=== PATIENT | male | born 1970 | race Caucasian/White ===

== ENCOUNTER 2021-06-27 06:58 | Emergency (ER) | payer OTHER, SELFPAY ==
[2021-06-27 07:14] VITALS: BP 135/83; PULSE 77; RESP 16; TEMP 36.5; O2SAT 97
--- NOTE | 2021-06-27 10:21 | ED.WOUNDLAC ---
HPI - Wound/Laceration General Chief Complaint: Skin/Abscess/Foreign Body Stated Complaint: Laceration R ear Time Seen by Provider: 06/27/21 07:33 Source: patient Mode of arrival: ambulatory Limitations: no limitations History of Present Illness HPI narrative: 50-year-old male Patient basically was getting into bed this morning and stumbled and whacked his right ear on a bookcase No loss of consciousness, no neck pain, no other injuries, just a laceration to the ear Related Data Allergies Allergy/AdvReac Type Severity Reaction Status Date / Time No Known Allergies Allergy Verified 06/27/21 07:18 Review of Systems Constitutional: Constitutional: Denies fatigue and Denies weakness ENT: Reports as per HPI Respiratory: Respiratory: Denies dyspnea Musculoskeletal: Musculoskeletal: Denies myalgias and Denies arthralgias Neurologic: Denies vertigo, Denies dizziness and Denies syncope Exam Const: General: no acute distress and alert Orientation/consciousness: patient oriented x3 HENMT: Other: 1-2 cm laceration to the pinna of the right ear perpendicular to the edge of the ear and through and through the cartilage and the back of the ear Eyes: Pupils: Equal, round and reactive pupils present Resp: Effort & Inspection: normal respiratory effort and not labored Neuro: General: patient oriented x3 Speech: normal speech Course Vital Signs Vital signs: Vital Signs Temperature 36.5 C 06/27/21 07:14 Pulse Rate 77 06/27/21 07:14 Respiratory Rate 16 06/27/21 07:14 Blood Pressure 135/83 06/27/21 07:14 Pulse Oximetry 97 06/27/21 07:14 Temperature 36.5 C 06/27/21 07:14 Pulse Rate 77 06/27/21 07:14 Respiratory Rate 16 06/27/21 07:14 Blood Pressure 135/83 06/27/21 07:14 Pulse Oximetry 97 06/27/21 07:14 Procedures Laceration Laceration 1: Date: 06/27/21 Time: 09:30 Site: other (r ear) Side (If applicable): right Size (cm): 2 Description: linear Depth: [id number] Local Anesthetic: lidocaine 1% Amount of anesthesia used (mL): 2 Pre-repair: irrigated ====== Skin Level ====== Skin layer closed with: vicryl Size (cm): 5-0 Number of sutures: 6 Technique: simple, interrupted ====== Subcutaneous Layer ====== ====== Muscle Layer ====== Muscle layer closed with: vicryl Size: 5-0 Number of sutures: 2 Technique: simple, interrupted and other ((cartilage)) ====== Tendon Layer ====== Discharge Plan Discharge Clinical Impression: Laceration of ear, external, right, complicated Patient Disposition: Home, Self-Care Condition: Improved Instructions: Care For Your Stitches (ED) Additional Instructions: Leave your dressing in place for the rest of the day Stitches do not need to be removed You can put a small amount of topical antibiotic ointment on the area twice a day Follow-up/Referrals: Theron Montgomery, [Physician] - (Primary care, as needed) PHYSICIAN,PRODUCT MANAGER [employer] [Primary Care Provider] -
[2021-06-27] MEDS: TETANUS,DIPHTHERIA,AC PERTUSSIS ADULT (0.5 ML) BOOSTRIX IM (10:54)
== END 2021-06-27 10:58 | disposition home or self-care (01) ==
PROVIDERS: Emergency Provider Emergency Medicine
DX: S01.311A Laceration without foreign body of right ear, initial encounter (principal); Z23 Encounter for immunization; W22.03XA Walked into furniture, initial encounter
CPT/HCPCS: 12051; 90471; 90715; 99282

== ENCOUNTER 2024-05-13 01:35 | Inpatient (IN) | payer OTHER, SELFPAY ==
[2024-05-13] VITALS (7 sets, daily range): BP systolic 109–156; BP diastolic 73–85; PULSE 71–90; RESP 16–20; TEMP 36.4–36.6; O2SAT 96–99; BMI 25.1
--- NOTE | ~2024-05-13 | XR_ITS ---
EXAMINATION: XR hip LT min 2V DATE: 05/14/2024 17:02 INDICATION: Left hip arthroplasty. Postop. TECHNIQUE: 2 views of left hip were obtained. COMPARISON: Pelvis and left hip radiographs 05/13/2024 FINDINGS: There is a bipolar left hip hemiarthroplasty in near-anatomic alignment. There is 3 mm luce ncy adjacent to the femoral component posteriorly and proximally. There are cables around proximal fe mur. There are prominent nutrient foramina in the left femoral diaphysis. There are foci of soft tiss ue gas, consistent with recent surgery. IMPRESSION: 1. Bipolar left hip hemiarthroplasty in near-anatomic alignment. Reviewed, dictated and finalized at location A. H CUTTER CONTACT WHEEL
--- NOTE | ~2024-05-13 | XR_ITS ---
AP view of the pelvis and AP and lateral views of the left hip Clinical history: Pain Findings: There is acute fracture the basicervical region of the left femoral neck, essentially nondi splaced. No other fracture or dislocation seen.. Bilateral hip and SI joint spaces are preserved. Sof t tissues are unremarkable. Impression: Acute fracture the basicervical region of the left femoral neck, essentially nondisplaced. Reviewed, dictated and finalized at location M. MILLING WHEEL OPERATOR Impression: Acute fracture the basicervical region of the left femoral neck, essentially no ndisplaced.
--- NOTE | ~2024-05-13 | CT_ITS ---
EXAMINATION: CT hip LT wo con DATE: 05/13/2024 19:11 INDICATION: Left femoral neck fracture. TECHNIQUE: Computed tomography (CT) of the left hip was performed without intravenous contrast. Autom ated exposure control and iterative reconstruction technique were employed. The dose-length product w as 635.40 mGy-cm. COMPARISON: Pelvis and left hip radiographs 05/13/24 FINDINGS: There is a comminuted fracture of left femoral neck. The main distal fracture fragment demo nstrates 10 mm shortening. There is moderate left hip osteoarthritis. IMPRESSION: 1. Comminuted fracture of left femoral neck. 2. Moderate left hip osteoarthritis. Reviewed, dictated and finalized at location A. SURVEYOR
--- NOTE | ~2024-05-13 | XR_ITS ---
EXAMINATION: XR surgery orthopedic DATE: 05/14/2024 16:19 INDICATION: Intraoperative evaluation during left hip hemiarthroplasty TECHNIQUE: 2 frontal views of the left hip was obtained. COMPARISON: None. FINDINGS: Initial image demonstrates resection of the fractured left femoral head and neck and placement of a f emoral broach is in expected position with proximal tip centered over the left acetabulum. A couple c erclage wires are placed about the intratrochanteric and subtrochanteric femur. Subsequent image demo nstrates replacement of the broach with a bipolar type left hip hemiarthroplasty which is in anatomic alignment. No other fractures identified. Portions of the pelvis are excluded from the f [id number] or obscured by a bolster. No other fractures in the visualized bones. IMPRESSION: 1. Expected appearance during bipolar type left hip hemiarthroplasty placement. Reviewed, dictated and finalized at location A. ORK DEVELOPER
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
--- NOTE | 2024-05-13 02:36 | PC.NURSE ---
RN attempted to go stat IV for blood work and medication orders. Pt states I don't want anything put into my veins . RN and MD Larkin went into pt room to explain he has left fracture hip and may need surgery so he will need an IV either way. PT states I want a second opinion . verbally states waiting for official stat rad report before starting IV.
[2024-05-13 04:15] LABS: Basophils Absolute Auto 0.1 K/mm3 (0.0-0.1); Basophils Percent Auto 0.4 % (0.2-1.2); Eosinophils Percent Auto 0.3 % (0-4.4); Hematocrit 38.1 % (42.0-52.0); Immature Granulocyte Absolute 0.07 K/mm3 (0.00-0.031); Immature Granulocyte Percent A 0.6 % (0-0.5); Lymphocytes Absolute Auto 1.13 K/mm3 (0.9-3.2); Lymphocytes Percent Auto 10.1 % (18.3-44.2); Mean Corpuscular HGB Conc 31.5 g/dl (32-36); Mean Corpuscular Hemoglobin 27.1 pg (26-34); Mean Platelet Volume 9.4 fl (7.4-10.4); Monocytes Absolute Auto 0.3 K/mm3 (0.1-0.6); Monocytes Percent Auto 2.5 % (2.6-8.5); Neutrophils Absolute Auto 9.7 K/mm3 (1.3-6.7); Neutrophils Percent Auto 86.1 % (45.5-73.1); Platelet Count Result 296 k/mm3 (150-375); Red Blood Count 4.43 M/mm3 (4.6-6.20); White Blood Count 11.2 K/mm3 (4.5-10.0)
[2024-05-13 04:25] LABS: Alanine Aminotransferase 23 U/L (6-50); Albumin Level 4.4 g/dL (3.5-5.1); Alkaline Phosphatase 67 U/L (38-126); Anion Gap 8 mmol/L (4-12); Aspartate Amino Transferase 32 U/L (17-59); Bilirubin,Total 0.3 mg/dL (0.2-1.3); Blood Urea Nitrogen 10 mg/dL (9-20); Calcium 8.7 mg/dL (8.4-10.2); Carbon Dioxide 27 mmol/L (22-30); Chloride 106 mmol/L (98-107); Estimated CRCL calculation 85 ml/min; Estimated Glomerular Filt Rate > 60; Glucose 111 mg/dL (65-110); Potassium 4.4 mmol/L (3.4-5.0); Sodium 141 mmol/L (137-145)
[2024-05-13 04:26] LABS: Ethanol 224 mg/dL (<10)
[2024-05-13 04:29] LABS: Prothrombin Time 13.4 Seconds (11.1-14.7)
[2024-05-13 04:30] LABS: Partial Thromboplastin Time 28.1 Seconds (22.3-36.8)
--- NOTE | 2024-05-13 04:44 | ADMGEN ---
This patient, Rao Quevedo, was admitted to Medical Room 254-01. Patient/family oriented to hospital policies and general routines including ID bracelet, bed and alarms, visiting hours, pain management, procedures, bathroom and other care routines, personal items, smoking policy, room service/diet, and visiting hours. Information on how to activate the Rapid Response Team has been discussed. Patient/Family are encouraged to report perceived risks to care and to ask questions if they do not understand what they are told or what they should do.
[2024-05-13] MEDS: LACTATED RINGERS 1,000 ML 125 ML IV CONT (05:10)
[2024-05-13] MEDS: HYDROcodone/acetaminophen (*CRX) 5-325 MG TABLET 1 TAB PO ×2 (05:11→17:33)
--- NOTE | 2024-05-13 07:00 | PM.CNOR ---
Assessment and Plan Assessment and plan (1) Fracture of femoral neck, left: Code(s): S72.002A - Fracture of unspecified part of neck of left femur, initial encounter for closed fracture Status: Acute Assessment and Plan: Patient has a femoral neck fracture Left. Will try to pin in place. If fracture moves will need bipolar. Discussed. History of Present Illness HPI Consult date: 05/13/24 Chief complaint: Femoral neck fracture Review of Systems Review of Systems: As reviewed above in HPI [facility] Family History Family History (Updated 05/13/24 @ 04:28 by Yumiko Montague RN) Other Cancer Heart disease Lung cancer Social History Social History Smoking status: Never smoker Alcohol intake: current Drinks per week: 24 Substance use type: marijuana Do You Feel Safe in your Home?: Yes Lack of Transportation: No Lack of Food: Never True Current Housing: I Have Housing Concerned About Future Housing: No Difficulty Paying Gas/Electric Bills: No Difficulty Paying for Meds: No Currently Unemployed: YES Education: High School Diploma/GED Difficulty w/ Childcare or Family Care: No Spiritual care concerns: No Meds Home Medications and Allergies Home Medications ?Medication ?Instructions ?Recorded ?Confirmed ?Type No Home Medications 05/13/24 05/13/24 History Allergies Allergy/AdvReac Type Severity Reaction Status Date / Time coconut Allergy Severe Dyspnea / Verified 05/13/24 04:16 SOB Vital Signs Vital Signs - 24 hr 05/13/24 01:35 05/13/24 04:14 05/13/24 04:50 Temperature 97.8 F 98 F Pulse Rate 72 79 90 Respiratory Rate 20 18 18 Blood Pressure 140/82 134/74 109/85 Pulse Oximetry 96 99 99 Oxygen Delivery Room Air Exam Narrative: Pain with motion Left hip. Neurologically intact. Eyes: General: appearance normal, both eyes and all related structures Neck: Neck: supple Resp: Effort & Inspection: normal respiratory effort Cardio: Rate: regular rate Rhythm: regular rhythm Results Labs 05/13/24 04:08 05/13/24 04:08 Labs: Abnormal lab results 05/13/24 Range/Units 04:08 WBC 11.2 H (4.5-10.0) K/mm3 RBC 4.43 L (4.6-6.20) M/mm3 Hgb 12.0 L (14.0-18.0) g/dL Hct 38.1 L (42.0-52.0) % MCHC 31.5 L (32-36) g/dl Immature Gran % (Auto) 0.6 H (0-0.5) % Neut % (Auto) 86.1 H (45.5-73.1) % Lymph % (Auto) 10.1 L (18.3-44.2) % Mcclain % (Auto) 2.5 L (2.6-8.5) % Abs Immat Gran (auto) 0.07 H (0.00-0.031) K/mm3 Absolute Neuts (auto) 9.7 H (1.3-6.7) K/mm3 Glucose 111 H (65-110) mg/dL H & H 05/13/24 Range/Units 04:08 Hgb 12.0 L (14.0-18.0) g/dL Hct 38.1 L (42.0-52.0) % Coagulation 05/13/24 Range/Units 04:08 INR 1.0 All other labs normal.
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
[2024-05-13] MEDS: ACETAMINOPHEN 325 MG TABLET 650 MG PO ×3 (08:45→17:33)
[2024-05-13] MEDS: THIAMINE HCL INJ 100 MG, FOLIC ACID INJ 1 MG, MAGNESIUM SULFATE INJ 1 GM, MULTIVITAMINS... 125 MG IV CONT (08:46)
[2024-05-13 12:26] LABS: Glucose Point of Care 91 mg/dl (65-105)
[2024-05-13] MEDS: ENOXAPARIN 40 MG/0.4 ML SYRINGE SUB-Q (21:42)
[2024-05-13] MEDS: SENNA/DOCUSATE SODIUM TABLET 1 TAB PO (21:42)
[2024-05-14] VITALS (14 sets, daily range): BP systolic 124–176; BP diastolic 74–91; PULSE 69–84; RESP 14–20; TEMP 36.3–36.8; O2SAT 97–100
[2024-05-14 00:31] LABS: Glucose Point of Care 82 mg/dl (65-105)
[2024-05-14] MEDS: ACETAMINOPHEN 325 MG TABLET 650 MG PO ×4 (00:46→23:47)
[2024-05-14 05:24] LABS: Basophils Absolute Auto 0.1 K/mm3 (0.0-0.1); Basophils Percent Auto 0.9 % (0.2-1.2); Eosinophils Absolute Auto 0.2 K/mm3 (0-0.3); Hematocrit 35.6 % (42.0-52.0); Hemoglobin 11.2 g/dL (14.0-18.0); Immature Granulocyte Absolute 0.02 K/mm3 (0.00-0.031); Immature Granulocyte Percent A 0.3 % (0-0.5); Lymphocytes Absolute Auto 1.19 K/mm3 (0.9-3.2); Mean Corpuscular HGB Conc 31.5 g/dl (32-36); Mean Corpuscular Hemoglobin 27.3 pg (26-34); Mean Corpuscular Volume 86.8 fl (80-100); Mean Platelet Volume 9.7 fl (7.4-10.4); Monocytes Absolute Auto 0.6 K/mm3 (0.1-0.6); Monocytes Percent Auto 7.9 % (2.6-8.5); Neutrophils Absolute Auto 5.4 K/mm3 (1.3-6.7); Neutrophils Percent Auto 72.9 % (45.5-73.1); Platelet Count Result 247 k/mm3 (150-375); Red Cell Distribution Width 14.2 % (11.5-14.5); White Blood Count 7.5 K/mm3 (4.5-10.0)
[2024-05-14 05:35] LABS: Anion Gap 4 mmol/L (4-12); Blood Urea Nitrogen 9 mg/dL (9-20); Calcium 8.5 mg/dL (8.4-10.2); Carbon Dioxide 28 mmol/L (22-30); Chloride 103 mmol/L (98-107); Estimated CRCL calculation 85 ml/min; Estimated Glomerular Filt Rate > 60; Glucose 89 mg/dL (65-110); Magnesium 2.1 mg/dL (1.6-2.3); Potassium 3.8 mmol/L (3.4-5.0); Sodium 135 mmol/L (137-145)
[2024-05-14 06:59] LABS: Glucose Point of Care 92 mg/dl (65-105)
--- NOTE | 2024-05-14 10:16 | PM.IMPN ---
Progress Note: A&P Assessment and Plan (1) Closed subcapital fracture of femur: Code(s): S72.019A - Unspecified intracapsular fracture of unspecified femur, initial encounter for closed fracture Status: Acute Assessment and Plan: Ortho consulted plan for surgery today or tomorrow, patient will need to be NPO Nonweightbearing left lower extremity Pain management and bowel protocol 05/14: Patient to OR for Bipolar left hip replacement. (2) Alcohol intoxication: Code(s): F10.929 - Alcohol use, unspecified with intoxication, unspecified Status: Acute Assessment and Plan: Ethanol level on arrival 224 Banana bag CIWA protocol with Ativan Case management consulted 05/14: CIWA discontinued, no signs of withdrawal Time Spent With Patient Time with patient: 25 - 35 minutes Subjective Date/time seen: 05/14/24 10:16 Interval history: Patient does not want IV narcotics, made changes to oral pain medication. Patient going for bipolar left hip replacement this afternoon. NPO except meds since MN last night. CIWA 0, Q4H monitoring discontinued. Review of Systems Review of Systems: All systems reviewed & are unremarkable except as noted in HPI and below Exam Narrative: GENERAL: Well-appearing, well-nourished, and in no acute distress. HEAD: Normocephalic, atraumatic. ENT:? Mucous membranes moist. CHEST: Clear to auscultation.? No respiratory distress. HEART: Regular rate and rhythm. ? Normal peripheral pulses. ABDOMEN: Soft, nontender, nondistended. EXTREMITIES: Left lateral hip tenderness to palpation, limited range of motion due to pain. No peripheral edema. SKIN: Warm dry normal color NEURO: Alert and oriented x3. PSYCH: Normal mood and affect Objective Data Vital Signs Vital Signs: Vital Signs - 24 hr 05/13/24 14:57 05/13/24 21:10 05/14/24 00:25 Temperature 36.6 C 36.4 C 36.8 C Pulse Rate 71 79 69 Respiratory Rate 17 16 14 Blood Pressure 156/73 H 144/77 H 142/84 H Pulse Oximetry 98 98 100 05/14/24 06:20 Temperature 36.6 C Pulse Rate 72 Respiratory Rate 16 Blood Pressure 142/74 H Pulse Oximetry 99 Intake/Output Intake/Output: Intake & Output 05/11/24 05/12/24 05/13/24 05/14/24 23:59 23:59 23:59 23:59 Intake Total 360 400 Output Total 1400 700 Balance -1040 -300 Meds/Results Medications: Active Medications Generic Name Dose Route Start Last Admin Trade Name Freq PRN Reason Stop Dose Admin Acetaminophen 650 mg 05/13/24 04:06 Acetaminophen 325 Mg Tablet PO Q4H PRN Mild Pain (1-3) or Fever Acetaminophen 650 mg 05/13/24 07:40 05/14/24 05:56 Acetaminophen 325 Mg Tablet PO 650 mg Q6HR TAYLOR Administration Hydrocodone Bitart/Acetaminophen 1 tab 05/13/24 04:06 05/13/24 17:33 Hydrocodone/Acetaminophen (*Crx) 5-325 Mg Tablet PO 1 tab Q4H PRN Administration Pain Rated 4-6 Hydrocodone Bitart/Acetaminophen 2 tab 05/14/24 10:11 Hydrocodone/Acetaminophen (*Crx) 5-325 Mg Tablet PO Q4H PRN Pain Rated 7-10 Enoxaparin Sodium 40 mg 05/13/24 21:00 05/13/24 21:42 Enoxaparin 40 Mg/0.4 Ml Syringe SUB-Q 40 mg Q24H TAYLOR Administration Sodium Chloride 1,000 mls @ 100 mls/hr 05/14/24 10:10 Normal Saline Iv IV CONT .Q10H TAYLOR Ondansetron HCl 4 mg 05/13/24 07:36 Ondansetron Inj 4 Mg/2 Ml Vial IV PUSH Q6H PRN Nausea And Vomiting Senna/Docusate Sodium 1 tab 05/13/24 21:00 05/13/24 21:42 Senna/Docusate Sodium Tablet PO 1 tab HS TAYLOR Administration Radiology Results: ITS Impressions Hip/Pelvis X-Ray 05/13/24 06:21 Impression: Acute fracture the basicervical region of the left femoral neck, essentially nondisplaced. Hip CT 05/13/24 19:13 IMPRESSION: 1. Comminuted fracture of left femoral neck. 2. Moderate left hip osteoarthritis. Labs Labs: Laboratory Results - last 24 hr 05/13/24 05/14/24 05/14/24 12:22 00:28 04:56 WBC 7.5 RBC 4.10 L Hgb 11.2 L Hct 35.6 L MCV 86.8 MCH 27.3 MCHC 31.5 L RDW 14.2 Plt Count 247 MPV 9.7 Immature Gran % (Auto) 0.3 Neut % (Auto) 72.9 Lymph % (Auto) 16.0 L [place] % (Auto) 7.9 Eos % (Auto) 2.0 Baso % (Auto) 0.9 Lymph # (Auto) 1.19 [place] # (Auto) 0.6 Eos # (Auto) 0.2 Baso # (Auto) 0.1 Abs Immat Gran (auto) 0.02 Absolute Neuts (auto) 5.4 Absolute Nucleated RBC 0.000 Nucleated RBC % 0.0 Sodium 135 L Potassium 3.8 Chloride 103 Carbon Dioxide 28 Anion Gap 4 BUN 9 Creatinine 0.90 Estim Creat Clear Calc 85 Estimated GFR > 60 Glucose 89 POC Capillary Glucose 91 82 Calcium 8.5 Magnesium 2.1 05/14/24 06:22 WBC RBC Hgb Hct MCV MCH MCHC RDW Plt Count MPV Immature Gran % (Auto) Neut % (Auto) Lymph % (Auto) [place] % (Auto) Eos % (Auto) Baso % (Auto) Lymph # (Auto) [place] # (Auto) Eos # (Auto) Baso # (Auto) Abs Immat Gran (auto) Absolute Neuts (auto) Absolute Nucleated RBC Nucleated RBC % Sodium Potassium Chloride Carbon Dioxide Anion Gap BUN Creatinine Estim Creat Clear Calc Estimated GFR Glucose POC Capillary Glucose 92 Calcium Magnesium Pulse Oximetry SpO2 results: 98-100% on room air Attestation: I personally reviewed and interpreted this pulse oximetry as follows: Interpretation: no need for supplemental oxygenation at this time Quality VTE Prophylaxis VTE prophylaxis: pharmacologic ordered Hospitalist MIPS Advance Care Plan I have confirmed that the patient's Advanced Care Plan is present, code status is documented, or surrogate decision maker is listed in patient medical record.: Yes Medication Reconciliation I have utilized all available resources to obtain, update and review the patients current medications (includes all prescriptions, OTC, herbals, cannabis, and nutritional supplements).: Yes
[2024-05-14] MEDS: HYDROcodone/acetaminophen (*CRX) 5-325 MG TABLET 2 TAB PO (10:52)
[2024-05-14] MEDS: SODIUM CHLORIDE 0.9% IV 1,000 ML 100 ML IV CONT (10:53)
[2024-05-14] MEDS: LACTATED RINGERS 1,000 ML 30 ML IV CONT ×2 (13:15→16:49)
--- NOTE | 2024-05-14 14:15 | WPDHPUPDATE1 ---
History and Physical Update Update Date/Time: 05/14/24 14:15 History and Physical has been reviewed, including an updated exam of the patient. There are NO changes in the patient's condition. Risks, benefits, and alternatives have been discussed and questions answered. Patient agrees to proceed with procedure. Patient has a vertical femoral neck fracture with comminution and 1cm of shortening already. I think an endoprosthesis will give him a better, more reliable result. Discussed at length.
[2024-05-14] MEDS: TRANEXAMIC ACID 1,000MG/ISO100 1,000 MG/100 ML BAG 200 MG IVPB (14:24)
[2024-05-14] MEDS: VANCOMYCIN 1,250 MG/NS 250 ML 1,250 MG/250 ML BAG 166.67 MG IVPB (14:37)
--- NOTE | 2024-05-14 14:37 | WPDANESEPPF ---
Anes - Initial Pre Proc Eval Procedure: Operation Date: 05/14/24 14:30 Proposed Procedures p Left Bipolar Hip Replacement - Yaya Reyes MD Date/Time: 05/14/24 14:37 Surgeon: Kayla Ramirez MD Pre Op Diagnosis: Femoral neck fracture Patient Data Age: 53 Gender: M Height: 1.75 m Weight: 77.1 kg Last Vital Signs Temp 36.8 C 05/14/24 13:26 Pulse 72 05/14/24 13:26 Resp 16 05/14/24 13:26 BP 131/86 05/14/24 13:26 Pulse Ox 99 05/14/24 13:26 O2 Del Method Room Air 05/14/24 13:26 FiO2 21 05/13/24 08:31 Allergies Allergy/AdvReac Type Severity Reaction Status Date / Time coconut Allergy Severe Dyspnea / Verified 05/14/24 13:26 SOB Home Medications ?Medication ?Instructions ?Recorded ?Confirmed ?Type No Home Medications 05/13/24 05/13/24 History Laboratory Tests 05/14/24 05/14/24 05/14/24 00:28 04:56 06:22 WBC 7.5 K/mm3 (4.5-10.0) RBC 4.10 L M/mm3 (4.6-6.20) Hgb 11.2 L g/dL (14.0-18.0) Hct 35.6 L % (42.0-52.0) MCV 86.8 fl (80-100) MCH 27.3 pg (26-34) MCHC 31.5 L g/dl (32-36) RDW 14.2 % (11.5-14.5) Plt Count 247 k/mm3 (150-375) MPV 9.7 fl (7.4-10.4) Immature Gran % (Auto) 0.3 % (0-0.5) Neut % (Auto) 72.9 % (45.5-73.1) Lymph % (Auto) 16.0 L % (18.3-44.2) [place] % (Auto) 7.9 % (2.6-8.5) Eos % (Auto) 2.0 % (0-4.4) Baso % (Auto) 0.9 % (0.2-1.2) Lymph # (Auto) 1.19 K/mm3 (0.9-3.2) [place] # (Auto) 0.6 K/mm3 (0.1-0.6) Eos # (Auto) 0.2 K/mm3 (0-0.3) Baso # (Auto) 0.1 K/mm3 (0.0-0.1) Abs Immat Gran (auto) 0.02 K/mm3 (0.00-0.031) Absolute Neuts (auto) 5.4 K/mm3 (1.3-6.7) Absolute Nucleated RBC 0.000 K/mm3 (0.0-0.012) Nucleated RBC % 0.0 % (0.0-0.2) Sodium 135 L mmol/L (137-145) Potassium 3.8 mmol/L (3.4-5.0) Chloride 103 mmol/L (98-107) Carbon Dioxide 28 mmol/L (22-30) Anion Gap 4 mmol/L (4-12) BUN 9 mg/dL (9-20) Creatinine 0.90 mg/dL (0.7-1.3) Estim Creat Clear Calc 85 ml/min Estimated GFR > 60 (59 - ) Glucose 89 mg/dL (65-110) POC Capillary Glucose 82 mg/dl 92 mg/dl (65-105) (65-105) Calcium 8.5 mg/dL (8.4-10.2) Magnesium 2.1 mg/dL (1.6-2.3) Patient hx anesthesia problems: none Family hx anesthesia problems: none Results Review: All pre-operative results and documents have been reviewed as part of the pre-operative evaluation. [facility] Family History Family History Other Cancer Heart disease Lung cancer Social History Social History Smoking status: Never smoker Alcohol intake: current Drinks per week: 24 Substance use type: marijuana Do You Feel Safe in your Home?: Yes Lack of Transportation: No Lack of Food: Never True Current Housing: I Have Housing Concerned About Future Housing: No Difficulty Paying Gas/Electric Bills: No Difficulty Paying for Meds: No Currently Unemployed: YES Education: High School Diploma/GED Difficulty w/ Childcare or Family Care: No Spiritual care concerns: No Anes - Eval Final PreProcedure Day of Procedure 05/14/24 14:37 Patient weight: normal Heart: regular rate and rhythm Lungs: clear to auscultation Airway: Mallampati scale class II Neurological: alert and oriented Last oral intake: >/= 8 hours ASA classification: III Emergent: no Anesthetic plan: proceed Anesthesia type and monitoring: general ETT and standard monitoring Results Review: All pre-operative results and documents have been reviewed as part of the pre-operative evaluation. Informed Consent: The patient's anesthetic plan and its attendant risks and benefits were discussed with the patient/family/POA. Questions were solicited and answers provided to the satisfaction of the patient/family/POA.
[2024-05-14] MEDS: ceFAZolin 2 GM/D5W 50 ML 2 GM/50 ML BAG IVPB ×2 (14:43→21:57)
--- NOTE | 2024-05-14 16:27 | W.PM.PROC2 ---
Procedure Note - Detailed Date of Procedure 05/14/24 Pre-op Diagnosis Femoral neck fracture LEFT Post-op Diagnosis Same Procedure Performed Bipolar replacement Surgeon Yaya Reyes MD Vice President Of Consulting Services Susan Dunaway Anesthesia General Indications Pain and Fracture Findings patient had a vertical femoral neck fracture with a large long spike that extended below or to the level of the lesser trochanter. Description of Procedure Patient brought to operating room 7. General anesthetic was administered. He was sterilely prepped and draped in usual manner. Longitudinal incision made over the hip. Dissection carried down to the fascia. The fascia split in line. Freedman type approach was used the femoral neck was delivered anteriorly this was cut a fingerbreadth above the lesser trochanter. There is a spike from the fracture the extended below the cut. The hip femoral head was then removed with some difficulty measured 54 millimeters. A 54 millimeter bipolar cup was chosen. At this point I elected to cable the femur above and below the lesser trochanter. I then reamed and broached to a 4 component. This was impacted into place an offset stem was used because of his varus deformity and then a +as standard neck was used. This gave excellent alignment and fixation and stability of the hip. The wound was irrigated, hemostasis obtained, and then closed with #5. Ethibond #2. Vicryl 2-0 Vicryl and gemma. A sterile dressing was applied. The patient tolerated the procedure well. Implants J [employer] Estimated Blood Loss 5 Urine Output 700 Complications No immediate complications Condition Stable AM Billing Surgery - Charge Forward: Surgery Billing ([id number] Bipolar)
[2024-05-14] MEDS: SENNA/DOCUSATE SODIUM TABLET 2 TAB PO (18:45)
[2024-05-14] MEDS: SODIUM CHLORIDE 0.9% IV 1,000 ML 125 ML IV CONT (18:46)
[2024-05-14] MEDS: HYDROmorphone HCL INJ (*CRX) 1 MG/ML SYR IV PUSH (18:46)
[2024-05-14] MEDS: HYDROcodone/acetaminophen (*CRX) 7.5-325 MG TABLET 1 TAB PO ×2 (20:02→23:53)
[2024-05-14] MEDS: IBUPROFEN IV 800 MG/200 ML 800 MG/200 ML BAG 400 MG IVPB (20:03)
[2024-05-14] MEDS: SENNA/DOCUSATE SODIUM TABLET 1 TAB PO (21:58)
[2024-05-14] MEDS: hydrOXYzine pamoate 25 MG CAPSULE 50 MG PO (21:58)
[2024-05-15] VITALS (8 sets, daily range): BP systolic 116–154; BP diastolic 62–85; PULSE 78–99; RESP 14–20; TEMP 36.4–36.8; O2SAT 98–100
[2024-05-15 05:47] LABS: Basophils Absolute Auto 0.1 K/mm3 (0.0-0.1); Basophils Percent Auto 0.7 % (0.2-1.2); Eosinophils Absolute Auto 0.1 K/mm3 (0-0.3); Eosinophils Percent Auto 1.6 % (0-4.4); Hematocrit 28.4 % (42.0-52.0); Immature Granulocyte Absolute 0.01 K/mm3 (0.00-0.031); Immature Granulocyte Percent A 0.1 % (0-0.5); Lymphocytes Absolute Auto 1.31 K/mm3 (0.9-3.2); Lymphocytes Percent Auto 17.8 % (18.3-44.2); Mean Corpuscular HGB Conc 31.7 g/dl (32-36); Mean Corpuscular Hemoglobin 27.8 pg (26-34); Mean Corpuscular Volume 87.7 fl (80-100); Mean Platelet Volume 9.6 fl (7.4-10.4); Monocytes Absolute Auto 0.7 K/mm3 (0.1-0.6); Monocytes Percent Auto 9.9 % (2.6-8.5); Neutrophils Absolute Auto 5.1 K/mm3 (1.3-6.7); Neutrophils Percent Auto 69.9 % (45.5-73.1); Platelet Count Result 241 k/mm3 (150-375); Red Blood Count 3.24 M/mm3 (4.6-6.20); Red Cell Distribution Width 14.3 % (11.5-14.5); White Blood Count 7.4 K/mm3 (4.5-10.0)
[2024-05-15] MEDS: ceFAZolin 2 GM/D5W 50 ML 2 GM/50 ML BAG IVPB ×2 (05:52→13:19)
[2024-05-15 05:58] LABS: Anion Gap 0 mmol/L (4-12); Blood Urea Nitrogen 8 mg/dL (9-20); Calcium 8.1 mg/dL (8.4-10.2); Carbon Dioxide 31 mmol/L (22-30); Chloride 103 mmol/L (98-107); Estimated CRCL calculation 77 ml/min; Estimated Glomerular Filt Rate > 60; Glucose 116 mg/dL (65-110); Potassium 4.6 mmol/L (3.4-5.0); Sodium 134 mmol/L (137-145)
[2024-05-15] MEDS: ACETAMINOPHEN 325 MG TABLET 650 MG PO ×4 (06:21→23:13)
[2024-05-15] MEDS: HYDROcodone/acetaminophen (*CRX) 7.5-325 MG TABLET 1 TAB PO ×2 (08:02→15:32)
[2024-05-15] MEDS: CELECOXIB 200 MG CAPSULE PO (08:03)
[2024-05-15] MEDS: RIVAROXABAN 10 MG TABLET PO (08:04)
[2024-05-15] MEDS: SENNA/DOCUSATE SODIUM TABLET 2 TAB PO ×2 (08:04→16:50)
[2024-05-15] MEDS: polyethylene glycoL 3350 17 GM POWD.PACK PO (08:04)
--- NOTE | 2024-05-15 09:49 | PM.PNORT ---
Progress Note: A&P Assessment and Plan (1) Fracture of femoral neck, left: Code(s): S72.002A - Fracture of unspecified part of neck of left femur, initial encounter for closed fracture Status: Acute Assessment and Plan: S/P bipolar for vertical comminuted hip fracture. Touch weight bearing. F/U 2 weeks. Up walking. Home when ambulatory. Subjective Subjective Date/Time Seen: 05/15/24 09:49 Post Op day: 1 Principal diagnosis: Bipolar Review of Systems Review of Systems: As reviewed above in HPI Exam Narrative: S/P bipolar. Up with walker. Dressing intact Objective Data Vital Signs Vital Signs: Vital Signs - 24 hr 05/14/24 13:26 05/14/24 16:49 05/14/24 17:00 Temperature 98.3 F 97.3 F L Pulse Rate 72 78 76 Respiratory Rate 16 20 16 Blood Pressure 131/86 170/83 H 176/75 H Pulse Oximetry 99 100 100 Oxygen Delivery Room Air Simple Face Mask Simple Face Mask Oxygen Flow Rate 6 10 05/14/24 17:15 05/14/24 17:30 05/14/24 17:45 Temperature Pulse Rate 72 79 77 Respiratory Rate 18 18 18 Blood Pressure 172/91 H 162/88 H 168/89 H Pulse Oximetry 100 98 97 Oxygen Delivery Simple Face Mask Room Air Room Air Oxygen Flow Rate 10 05/14/24 18:00 05/14/24 18:15 05/14/24 18:30 Temperature 97.9 F Pulse Rate 76 76 78 Respiratory Rate 16 16 18 Blood Pressure 156/89 H 161/82 H 150/82 H Pulse Oximetry 97 98 98 Oxygen Delivery Room Air Room Air Oxygen Flow Rate 05/14/24 18:45 05/14/24 19:15 05/14/24 21:03 Temperature 97.6 F 97.7 F 97.9 F Pulse Rate 71 81 84 Respiratory Rate 16 16 18 Blood Pressure 147/77 H 124/83 141/76 H Pulse Oximetry 97 98 99 Oxygen Delivery Oxygen Flow Rate 05/15/24 00:09 05/15/24 06:24 05/15/24 07:49 Temperature 97.8 F 98.2 F Pulse Rate 99 86 Respiratory Rate 16 14 Blood Pressure 154/85 H 136/65 Pulse Oximetry 98 99 Oxygen Delivery Room Air Oxygen Flow Rate 05/15/24 08:09 Temperature 97.7 F Pulse Rate 89 Respiratory Rate 20 Blood Pressure 136/84 Pulse Oximetry 98 Oxygen Delivery Oxygen Flow Rate Intake/Output Intake/Output: Intake & Output 05/12/24 05/13/24 05/14/24 05/15/24 23:59 23:59 23:59 23:59 Intake Total 360 1350 1830 Output Total 1400 1400 1000 Balance -1040 -50 830 Meds/Results Medications: Active Medications Generic Name Dose Route Start Last Admin Trade Name Freq PRN Reason Stop Dose Admin Acetaminophen 650 mg 05/13/24 04:06 Acetaminophen 325 Mg Tablet PO Q4H PRN Mild Pain (1-3) or Fever Acetaminophen 650 mg 05/13/24 07:40 05/15/24 06:21 Acetaminophen 325 Mg Tablet PO 650 mg Q6HR TAYLOR Administration Hydrocodone Bitart/Acetaminophen 1 tab 05/13/24 04:06 05/13/24 17:33 Hydrocodone/Acetaminophen (*Crx) 5-325 Mg Tablet PO 1 tab Q4H PRN Administration Pain Rated 4-6 Hydrocodone Bitart/Acetaminophen 1 tab 05/14/24 18:24 05/15/24 08:02 Hydrocodone/Acetaminophen (*Crx) 7.5-325 Mg Tablet PO 1 tab Q4H PRN Administration Pain Rated 7-10 Celecoxib 200 mg 05/15/24 08:00 05/15/24 08:03 Celecoxib 200 Mg Capsule PO 200 mg DAILY@0800 TAYLOR Administration Fentanyl Citrate 25 mcg 05/14/24 12:41 Fentanyl Citrate Inj (*Crx) 100 Mcg/2 Ml Vial IV PUSH Q2M PRN Pain Hydromorphone HCl 1 mg 05/14/24 18:24 05/14/24 18:46 Hydromorphone Hcl Inj (*Crx) 1 Mg/Ml Syr IV PUSH 1 mg Q2H PRN Administration Breakthrough Pain Rated 7-10 or NPO Hydromorphone HCl 0.5 mg 05/14/24 18:24 Hydromorphone Hcl Inj (*Crx) 1 Mg/Ml Syr IV PUSH Q2H PRN Breakthrough Pain Rated 4-6 or NPO Hydroxyzine Pamoate 50 mg 05/14/24 18:24 05/14/24 21:58 Hydroxyzine Pamoate 25 Mg Capsule PO 50 mg Q4H PRN Administration Itching Cefazolin Sodium 2 gm in 50 mls @ 100 mls/hr 05/14/24 22:00 05/15/24 05:52 Ancef 2 Gm/D5w 50 Ml IVPB 05/15/24 14:29 100 mls/hr Q8H TAYLOR Administration Ibuprofen 800 mg in 200 mls @ 400 mls/hr 05/14/24 18:24 05/14/24 20:33 Caldolor 800 Mg/200 Ml IVPB Infused Q6H PRN Infusion Breakthrough Pain Rated 1-3 or NPO Naloxone HCl 0.1 mg 05/14/24 18:24 Naloxone Hcl 0.4 Mg/Ml Vial IV PUSH Q2M PRN Opiate Reversal Ondansetron HCl 4 mg 05/14/24 14:38 Ondansetron Inj 4 Mg/2 Ml Vial IV PUSH ONCE PRN Nausea Ondansetron HCl 4 mg 05/14/24 18:24 Ondansetron Inj 4 Mg/2 Ml Vial IV PUSH Q4H PRN Nausea And Vomiting Polyethylene Glycol 17 gm 05/15/24 09:00 05/15/24 08:04 Polyethylene Glycol 3350 17 Gm Powd.Pack PO 17 gm QAM TAYLOR Administration Rivaroxaban 10 mg 05/15/24 09:00 05/15/24 08:04 Rivaroxaban 10 Mg Tablet PO 06/18/24 09:01 10 mg DAILY@0900 TAYLOR Administration Senna/Docusate Sodium 1 tab 05/13/24 21:00 05/14/24 21:58 Senna/Docusate Sodium Tablet PO 1 tab HS ATYLOR Administration Senna/Docusate Sodium 2 tab 05/14/24 18:24 05/15/24 08:04 Senna/Docusate Sodium Tablet PO 2 tab BID TAYLOR Administration Tramadol HCl 50 mg 05/14/24 18:24 Tramadol Hcl (*Crx) 50 Mg Tablet PO Q4H PRN Pain Rated 1-3 Radiology Results: ITS Impressions Hip/Pelvis X-Ray 05/13/24 06:21 Impression: Acute fracture the basicervical region of the left femoral neck, essentially nondisplaced. Hip CT 05/13/24 19:13 IMPRESSION: 1. Comminuted fracture of left femoral neck. 2. Moderate left hip osteoarthritis. Intraoperative X-Ray 05/14/24 16:30 IMPRESSION: 1. Expected appearance during bipolar type left hip hemiarthroplasty placement. Hip X-Ray 05/14/24 17:05 IMPRESSION: 1. Bipolar left hip hemiarthroplasty in near-anatomic alignment. Labs Labs: Laboratory Results - last 24 hr 05/15/24 05:24 WBC 7.4 RBC 3.24 L Hgb 9.0 L Hct 28.4 L MCV 87.7 MCH 27.8 MCHC 31.7 L RDW 14.3 Plt Count 241 MPV 9.6 Immature Gran % (Auto) 0.1 Neut % (Auto) 69.9 Lymph % (Auto) 17.8 L [place] % (Auto) 9.9 H Eos % (Auto) 1.6 Baso % (Auto) 0.7 Lymph # (Auto) 1.31 [place] # (Auto) 0.7 H Eos # (Auto) 0.1 Baso # (Auto) 0.1 Abs Immat Gran (auto) 0.01 Absolute Neuts (auto) 5.1 Absolute Nucleated RBC 0.000 Nucleated RBC % 0.0 Sodium 134 L Potassium 4.6 Chloride 103 Carbon Dioxide 31 H Anion Gap 0 L BUN 8 L Creatinine 1.00 Estim Creat Clear Calc 77 Estimated GFR > 60 Glucose 116 H Calcium 8.1 L
--- NOTE | 2024-05-15 15:22 | PM.IMPN ---
Progress Note: A&P Assessment and Plan (1) Closed subcapital fracture of femur: Code(s): S72.019A - Unspecified intracapsular fracture of unspecified femur, initial encounter for closed fracture Status: Acute Assessment and Plan: Ortho consulted plan for surgery today or tomorrow, patient will need to be NPO Nonweightbearing left lower extremity Pain management and bowel protocol 05/14: Patient to OR for Bipolar left hip replacement. 18: Management per Ortho on POD#1 (2) Alcohol intoxication: Code(s): F10.929 - Alcohol use, unspecified with intoxication, unspecified Status: Resolved Assessment and Plan: Ethanol level on arrival 224 Banana bag CIWA protocol with Ativan Case management consulted 05/14: CIWA discontinued, no signs of withdrawal 05/15/24: CIWA discontinued Time Spent With Patient Time with patient: 15 - 25 minutes Subjective Date/time seen: 05/15/24 15:22 Interval history: This pt was examined on POD#1 by medicine service and found to be sitting at the side of the bed, comfortable without any distress and without any s/s of withdraw from ETOH use. Ortho managing post-op. Review of Systems Review of Systems: All systems reviewed & are unremarkable except as noted in HPI and below Exam Narrative: GENERAL: Well-appearing, well-nourished, and in no acute distress. HEAD: Normocephalic, atraumatic. ENT:? Mucous membranes moist. CHEST: Clear to auscultation.? No respiratory distress. HEART: Regular rate and rhythm. ? Normal peripheral pulses. ABDOMEN: Soft, nontender, nondistended. EXTREMITIES: Left lateral hip tenderness to palpation, limited range of motion due to pain. No peripheral edema. SKIN: Warm dry normal color, left hip dressing intact and dry. NEURO: Alert and oriented x3. PSYCH: Normal mood and affect Objective Data Vital Signs Vital Signs: Vital Signs - 24 hr 05/14/24 16:49 05/14/24 17:00 05/14/24 17:15 Temperature 97.3 F L Pulse Rate 78 76 72 Respiratory Rate 20 16 18 Blood Pressure 170/83 H 176/75 H 172/91 H Pulse Oximetry 100 100 100 Oxygen Delivery Simple Face Mask Simple Face Mask Simple Face Mask Oxygen Flow Rate 6 10 10 05/14/24 17:30 05/14/24 17:45 05/14/24 18:00 Temperature Pulse Rate 79 77 76 Respiratory Rate 18 18 16 Blood Pressure 162/88 H 168/89 H 156/89 H Pulse Oximetry 98 97 97 Oxygen Delivery Room Air Room Air Room Air Oxygen Flow Rate 05/14/24 18:15 05/14/24 18:30 05/14/24 18:45 Temperature 97.9 F 97.6 F Pulse Rate 76 78 71 Respiratory Rate 16 18 16 Blood Pressure 161/82 H 150/82 H 147/77 H Pulse Oximetry 98 98 97 Oxygen Delivery Room Air Oxygen Flow Rate 05/14/24 19:15 05/14/24 21:03 05/15/24 00:09 Temperature 97.7 F 97.9 F 97.8 F Pulse Rate 81 84 99 Respiratory Rate 16 18 16 Blood Pressure 124/83 141/76 H 154/85 H Pulse Oximetry 98 99 98 Oxygen Delivery Oxygen Flow Rate 05/15/24 06:24 05/15/24 07:49 05/15/24 08:09 Temperature 98.2 F 97.7 F Pulse Rate 86 89 Respiratory Rate 14 20 Blood Pressure 136/65 136/84 Pulse Oximetry 99 98 Oxygen Delivery Room Air Oxygen Flow Rate 05/15/24 09:14 05/15/24 09:45 05/15/24 12:09 Temperature 97.8 F Pulse Rate 87 Respiratory Rate 20 16 Blood Pressure 116/62 Pulse Oximetry 98 100 Oxygen Delivery Room Air Room Air Oxygen Flow Rate Intake/Output Intake/Output: Intake & Output 05/12/24 05/13/24 05/14/24 05/15/24 23:59 23:59 23:59 23:59 Intake Total 360 1350 2720 Output Total 1400 1400 1300 Balance -1040 -50 1420 Meds/Results Medications: Active Medications Generic Name Dose Route Start Last Admin Trade Name Freq PRN Reason Stop Dose Admin Acetaminophen 650 mg 05/13/24 04:06 Acetaminophen 325 Mg Tablet PO Q4H PRN Mild Pain (1-3) or Fever Acetaminophen 650 mg 05/13/24 07:40 05/15/24 11:10 Acetaminophen 325 Mg Tablet PO 650 mg Q6HR TAYLOR Administration Hydrocodone Bitart/Acetaminophen 1 tab 05/13/24 04:06 05/13/24 17:33 Hydrocodone/Acetaminophen (*Crx) 5-325 Mg Tablet PO 1 tab Q4H PRN Administration Pain Rated 4-6 Hydrocodone Bitart/Acetaminophen 1 tab 05/14/24 18:24 05/15/24 08:02 Hydrocodone/Acetaminophen (*Crx) 7.5-325 Mg Tablet PO 1 tab Q4H PRN Administration Pain Rated 7-10 Celecoxib 200 mg 05/15/24 08:00 05/15/24 08:03 Celecoxib 200 Mg Capsule PO 200 mg DAILY@0800 TAYLOR Administration Fentanyl Citrate 25 mcg 05/14/24 12:41 Fentanyl Citrate Inj (*Crx) 100 Mcg/2 Ml Vial IV PUSH Q2M PRN Pain Hydromorphone HCl 1 mg 05/14/24 18:24 05/14/24 18:46 Hydromorphone Hcl Inj (*Crx) 1 Mg/Ml Syr IV PUSH 1 mg Q2H PRN Administration Breakthrough Pain Rated 7-10 or NPO Hydromorphone HCl 0.5 mg 05/14/24 18:24 Hydromorphone Hcl Inj (*Crx) 1 Mg/Ml Syr IV PUSH Q2H PRN Breakthrough Pain Rated 4-6 or NPO Hydroxyzine Pamoate 50 mg 05/14/24 18:24 05/14/24 21:58 Hydroxyzine Pamoate 25 Mg Capsule PO 50 mg Q4H PRN Administration Itching Ibuprofen 800 mg in 200 mls @ 400 mls/hr 05/14/24 18:24 05/14/24 20:33 Caldolor 800 Mg/200 Ml IVPB Infused Q6H PRN Infusion Breakthrough Pain Rated 1-3 or NPO Naloxone HCl 0.1 mg 05/14/24 18:24 Naloxone Hcl 0.4 Mg/Ml Vial IV PUSH Q2M PRN Opiate Reversal Ondansetron HCl 4 mg 05/14/24 14:38 Ondansetron Inj 4 Mg/2 Ml Vial IV PUSH ONCE PRN Nausea Ondansetron HCl 4 mg 05/14/24 18:24 Ondansetron Inj 4 Mg/2 Ml Vial IV PUSH Q4H PRN Nausea And Vomiting Polyethylene Glycol 17 gm 05/15/24 09:00 05/15/24 08:04 Polyethylene Glycol 3350 17 Gm Powd.Pack PO 17 gm QAM TAYLOR Administration Rivaroxaban 10 mg 05/15/24 09:00 05/15/24 08:04 Rivaroxaban 10 Mg Tablet PO 06/18/24 09:01 10 mg DAILY@0900 TAYLOR Administration Senna/Docusate Sodium 1 tab 05/13/24 21:00 05/14/24 21:58 Senna/Docusate Sodium Tablet PO 1 tab HS TAYLOR Administration Senna/Docusate Sodium 2 tab 05/14/24 18:24 05/15/24 08:04 Senna/Docusate Sodium Tablet PO 2 tab BID TAYLOR Administration Tramadol HCl 50 mg 05/14/24 18:24 Tramadol Hcl (*Crx) 50 Mg Tablet PO Q4H PRN Pain Rated 1-3 Radiology Results: ITS Impressions Hip/Pelvis X-Ray 05/13/24 06:21 Impression: Acute fracture the basicervical region of the left femoral neck, essentially nondisplaced. Hip CT 05/13/24 19:13 IMPRESSION: 1. Comminuted fracture of left femoral neck. 2. Moderate left hip osteoarthritis. Intraoperative X-Ray 05/14/24 16:30 IMPRESSION: 1. Expected appearance during bipolar type left hip hemiarthroplasty placement. Hip X-Ray 05/14/24 17:05 IMPRESSION: 1. Bipolar left hip hemiarthroplasty in near-anatomic alignment. Labs Labs: Laboratory Results - last 24 hr 05/15/24 05:24 WBC 7.4 RBC 3.24 L Hgb 9.0 L Hct 28.4 L MCV 87.7 MCH 27.8 MCHC 31.7 L RDW 14.3 Plt Count 241 MPV 9.6 Immature Gran % (Auto) 0.1 Neut % (Auto) 69.9 Lymph % (Auto) 17.8 L [place] % (Auto) 9.9 H Eos % (Auto) 1.6 Baso % (Auto) 0.7 Lymph # (Auto) 1.31 [place] # (Auto) 0.7 H Eos # (Auto) 0.1 Baso # (Auto) 0.1 Abs Immat Gran (auto) 0.01 Absolute Neuts (auto) 5.1 Absolute Nucleated RBC 0.000 Nucleated RBC % 0.0 Sodium 134 L Potassium 4.6 Chloride 103 Carbon Dioxide 31 H Anion Gap 0 L BUN 8 L Creatinine 1.00 Estim Creat Clear Calc 77 Estimated GFR > 60 Glucose 116 H Calcium 8.1 L Quality VTE Prophylaxis VTE prophylaxis: pharmacologic ordered
--- NOTE | 2024-05-15 18:41 | P.PNAN_ITS ---
Anes - Prog Note Post-Op Date/Time: 05/15/24 18:41 Cardiovascular status: normal Respiratory status: normal Airway patency: baseline Mental status: baseline Post-Op hydration status: normal Vital Signs: Last Vital Signs Temp 97.5 F L 05/15/24 16:05 Pulse 82 05/15/24 16:05 Resp 20 05/15/24 16:05 BP 136/71 05/15/24 16:05 Pulse Ox 100 05/15/24 16:05 O2 Del Method Room Air 05/15/24 09:45 O2 Flow Rate 10 05/14/24 17:15 FiO2 21 05/13/24 08:31 Pain Score (VAS): 0/10 I/O: Intake & Output 05/15/24 05/15/24 05/15/24 07:59 15:59 23:59 Intake Total 1400 1320 240 Output Total 700 600 600 Balance 700 720 -360 Laboratory Tests 05/15/24 05:24 05/15/24 05:24 05/15/24 05:24 WBC 7.4 RBC 3.24 L Hgb 9.0 L Hct 28.4 L MCV 87.7 MCH 27.8 MCHC 31.7 L RDW 14.3 Plt Count 241 MPV 9.6 Immature Gran % (Auto) 0.1 Neut % (Auto) 69.9 Lymph % (Auto) 17.8 L [place] % (Auto) 9.9 H Eos % (Auto) 1.6 Baso % (Auto) 0.7 Lymph # (Auto) 1.31 [place] # (Auto) 0.7 H Eos # (Auto) 0.1 Baso # (Auto) 0.1 Abs Immat Gran (auto) 0.01 Absolute Neuts (auto) 5.1 Absolute Nucleated RBC 0.000 Nucleated RBC % 0.0 Sodium 134 L Potassium 4.6 Chloride 103 Carbon Dioxide 31 H Anion Gap 0 L BUN 8 L Creatinine 1.00 Estim Creat Clear Calc 77 Estimated GFR > 60 Glucose 116 H Calcium 8.1 L Post-procedural complaints: none Patient Feedback: Patient satisfied with anesthetic care.
[2024-05-16] MEDS: HYDROcodone/acetaminophen (*CRX) 7.5-325 MG TABLET 1 TAB PO ×3 (04:36→15:33)
[2024-05-16 05:36] VITALS: BP 135/76; PULSE 100; RESP 18; TEMP 36.6; O2SAT 100
[2024-05-16] MEDS: ACETAMINOPHEN 325 MG TABLET 650 MG PO ×4 (05:55→23:51)
[2024-05-16 06:04] LABS: Basophils Percent Auto 0.3 % (0.2-1.2); Eosinophils Absolute Auto 0.2 K/mm3 (0-0.3); Hematocrit 26.2 % (42.0-52.0); Hemoglobin 8.1 g/dL (14.0-18.0); Immature Granulocyte Absolute 0.04 K/mm3 (0.00-0.031); Immature Granulocyte Percent A 0.5 % (0-0.5); Lymphocytes Absolute Auto 0.95 K/mm3 (0.9-3.2); Mean Corpuscular HGB Conc 30.9 g/dl (32-36); Mean Corpuscular Hemoglobin 27.1 pg (26-34); Mean Corpuscular Volume 87.6 fl (80-100); Mean Platelet Volume 9.6 fl (7.4-10.4); Monocytes Absolute Auto 0.7 K/mm3 (0.1-0.6); Monocytes Percent Auto 7.9 % (2.6-8.5); Neutrophils Absolute Auto 6.8 K/mm3 (1.3-6.7); Neutrophils Percent Auto 78.3 % (45.5-73.1); Platelet Count Result 246 k/mm3 (150-375); Red Blood Count 2.99 M/mm3 (4.6-6.20); Red Cell Distribution Width 14.3 % (11.5-14.5); White Blood Count 8.7 K/mm3 (4.5-10.0)
[2024-05-16 06:15] LABS: Alanine Aminotransferase 14 U/L (6-50); Albumin Level 3.3 g/dL (3.5-5.1); Alkaline Phosphatase 54 U/L (38-126); Anion Gap -1 mmol/L (4-12); Aspartate Amino Transferase 45 U/L (17-59); Bilirubin,Total 0.5 mg/dL (0.2-1.3); Blood Urea Nitrogen 7 mg/dL (9-20); Calcium 8.4 mg/dL (8.4-10.2); Carbon Dioxide 32 mmol/L (22-30); Chloride 103 mmol/L (98-107); Estimated CRCL calculation 95 ml/min; Estimated Glomerular Filt Rate > 60; Glucose 114 mg/dL (65-110); Magnesium 1.9 mg/dL (1.6-2.3); Potassium 4.6 mmol/L (3.4-5.0); Sodium 134 mmol/L (137-145)
[2024-05-16 08:29] VITALS: RESP 18; O2SAT 100
[2024-05-16] MEDS: SENNA/DOCUSATE SODIUM TABLET 2 TAB PO ×2 (08:29→16:48)
[2024-05-16] MEDS: RIVAROXABAN 10 MG TABLET PO (08:29)
[2024-05-16] MEDS: CELECOXIB 200 MG CAPSULE PO (08:29)
--- NOTE | 2024-05-16 10:06 | PCPTNOTE ---
Patient refused treatment this session due to patient just walking to and from restroom with nursing, and patient reported he felt weak at this time. RN aware.
--- NOTE | 2024-05-16 10:40 | P.PNOP_ITS ---
Progress Note: A&P Assessment and Plan (1) Fracture of femoral neck, left: Code(s): S72.002A - Fracture of unspecified part of neck of left femur, initial encounter for closed fracture Status: Acute Assessment and Plan: S/P bipolar. Doing well post op. Home with a walker. F/U 2 weeks. Subjective Subjective Date/Time Seen: 05/16/24 10:40 Post Op day: 2 Principal diagnosis: S/P bipolar left for femoral neck fracture Review of Systems Review of Systems: As reviewed above in HPI Exam Narrative: Wiggle toes NIV Up and walking Objective Data Vital Signs Vital Signs: Vital Signs - 24 hr 05/15/24 12:09 05/15/24 16:05 05/15/24 20:00 Temperature 97.8 F 97.5 F L Pulse Rate 87 82 Respiratory Rate 16 20 Blood Pressure 116/62 136/71 Pulse Oximetry 100 100 Oxygen Delivery Room Air 05/15/24 20:09 05/15/24 23:33 05/16/24 05:36 Temperature 97.8 F 98.3 F 97.9 F Pulse Rate 78 93 100 Respiratory Rate 18 18 18 Blood Pressure 117/64 143/69 H 135/76 Pulse Oximetry 100 98 100 Oxygen Delivery Intake/Output Intake/Output: Intake & Output 05/13/24 05/14/24 05/15/24 05/16/24 23:59 23:59 23:59 23:59 Intake Total 360 1350 2960 700 Output Total 1400 1400 2600 700 Balance -1040 -50 360 0 Meds/Results Medications: Active Medications Generic Name Dose Route Start Last Admin Trade Name Freq PRN Reason Stop Dose Admin Acetaminophen 650 mg 05/13/24 04:06 Acetaminophen 325 Mg Tablet PO Q4H PRN Mild Pain (1-3) or Fever Acetaminophen 650 mg 05/13/24 07:40 05/16/24 05:55 Acetaminophen 325 Mg Tablet PO 650 mg Q6HR TAYLOR Administration Hydrocodone Bitart/Acetaminophen 1 tab 05/13/24 04:06 05/13/24 17:33 Hydrocodone/Acetaminophen (*Crx) 5-325 Mg Tablet PO 1 tab Q4H PRN Administration Pain Rated 4-6 Hydrocodone Bitart/Acetaminophen 1 tab 05/14/24 18:24 05/16/24 09:38 Hydrocodone/Acetaminophen (*Crx) 7.5-325 Mg Tablet PO 1 tab Q4H PRN Administration Pain Rated 7-10 Celecoxib 200 mg 05/15/24 08:00 05/16/24 08:29 Celecoxib 200 Mg Capsule PO 200 mg DAILY@0800 [facility] Administration Fentanyl Citrate 25 mcg 05/14/24 12:41 Fentanyl Citrate Inj (*Crx) 100 Mcg/2 Ml Vial IV PUSH Q2M PRN Pain Hydromorphone HCl 1 mg 05/14/24 18:24 05/14/24 18:46 Hydromorphone Hcl Inj (*Crx) 1 Mg/Ml Syr IV PUSH 1 mg Q2H PRN Administration Breakthrough Pain Rated 7-10 or NPO Hydromorphone HCl 0.5 mg 05/14/24 18:24 Hydromorphone Hcl Inj (*Crx) 1 Mg/Ml Syr IV PUSH Q2H PRN Breakthrough Pain Rated 4-6 or NPO Hydroxyzine Pamoate 50 mg 05/14/24 18:24 05/14/24 21:58 Hydroxyzine Pamoate 25 Mg Capsule PO 50 mg Q4H PRN Administration Itching Ibuprofen 800 mg in 200 mls @ 400 mls/hr 05/14/24 18:24 05/14/24 20:33 Caldolor 800 Mg/200 Ml IVPB Infused Q6H PRN Infusion Breakthrough Pain Rated 1-3 or NPO Naloxone HCl 0.1 mg 05/14/24 18:24 Naloxone Hcl 0.4 Mg/Ml Vial IV PUSH Q2M PRN Opiate Reversal Ondansetron HCl 4 mg 05/14/24 14:38 Ondansetron Inj 4 Mg/2 Ml Vial IV PUSH ONCE PRN Nausea Ondansetron HCl 4 mg 05/14/24 18:24 Ondansetron Inj 4 Mg/2 Ml Vial IV PUSH Q4H PRN Nausea And Vomiting Polyethylene Glycol 17 gm 05/15/24 09:00 05/16/24 08:30 Polyethylene Glycol 3350 17 Gm Powd.Pack PO Not Given QAM [facility] Rivaroxaban 10 mg 05/15/24 09:00 05/16/24 08:29 Rivaroxaban 10 Mg Tablet PO 06/18/24 09:01 10 mg DAILY@0900 [facility] Administration Senna/Docusate Sodium 2 tab 05/14/24 18:24 05/16/24 08:29 Senna/Docusate Sodium Tablet PO 2 tab BID TAYLOR Administration Tramadol HCl 50 mg 05/14/24 18:24 Tramadol Hcl (*Crx) 50 Mg Tablet PO Q4H PRN Pain Rated 1-3 Radiology Results: ITS Impressions Hip/Pelvis X-Ray 05/13/24 06:21 Impression: Acute fracture the basicervical region of the left femoral neck, essentially nondisplaced. Hip CT 05/13/24 19:13 IMPRESSION: 1. Comminuted fracture of left femoral neck. 2. Moderate left hip osteoarthritis. Intraoperative X-Ray 05/14/24 16:30 IMPRESSION: 1. Expected appearance during bipolar type left hip hemiarthroplasty placement. Hip X-Ray 05/14/24 17:05 IMPRESSION: 1. Bipolar left hip hemiarthroplasty in near-anatomic alignment. Labs Labs: Laboratory Results - last 24 hr 05/16/24 05:51 WBC 8.7 RBC 2.99 L Hgb 8.1 L Hct 26.2 L MCV 87.6 MCH 27.1 MCHC 30.9 L RDW 14.3 Plt Count 246 MPV 9.6 Immature Gran % (Auto) 0.5 Neut % (Auto) 78.3 H Lymph % (Auto) 11.0 L [place] % (Auto) 7.9 Eos % (Auto) 2.0 Baso % (Auto) 0.3 Lymph # (Auto) 0.95 [place] # (Auto) 0.7 H Eos # (Auto) 0.2 Baso # (Auto) 0.0 Abs Immat Gran (auto) 0.04 H Absolute Neuts (auto) 6.8 H Absolute Nucleated RBC 0.000 Nucleated RBC % 0.0 Sodium 134 L Potassium 4.6 Chloride 103 Carbon Dioxide 32 H Anion Gap -1 L BUN 7 L Creatinine 0.80 Estim Creat Clear Calc 95 Estimated GFR > 60 Glucose 114 H Calcium 8.4 Magnesium 1.9 Total Bilirubin 0.5 AST 45 ALT 14 Alkaline Phosphatase 54 Total Protein 6.0 L Albumin 3.3 L
--- NOTE | 2024-05-16 11:28 | P.PNIM_ITS ---
Progress Note: A&P Assessment and Plan (1) Closed subcapital fracture of femur: Code(s): S72.019A - Unspecified intracapsular fracture of unspecified femur, initial encounter for closed fracture Status: Acute Assessment and Plan: Ortho consulted plan for surgery today or tomorrow, patient will need to be NPO Nonweightbearing left lower extremity Pain management and bowel protocol 05/14: Patient to OR for Bipolar left hip replacement. 05/15/24: Management per Ortho on POD#1 05/16/24: Awaiting placement in rehab. Pt cleared for discharge by orthopedics when placement is finalized. He will discharge with prescription for Xarelto. (2) Alcohol intoxication: Code(s): F10.929 - Alcohol use, unspecified with intoxication, unspecified Status: Resolved Assessment and Plan: Ethanol level on arrival 224 Banana bag CIWA protocol with Ativan Case management consulted 05/14: CIWA discontinued, no signs of withdrawal 05/15/24: CIWA discontinued Time Spent With Patient Time with patient: 15 - 25 minutes Subjective Date/time seen: 05/16/24 0930 Interval history: This pt was examined at the bedside today in interval assessment since repair of his left hip injury. He has been cleared for discharge by orthopedics to follow up in two weeks with initiation of Xarelto for anticoagulation, however, pt will not be leaving today. He is currently being placed in SNF for rehab. No new needs. He does report some pain with ambulation and has only walked to the bathroom thus far. He has not attempted steps. Review of Systems Review of Systems: All systems reviewed & are unremarkable except as noted in HPI and below Exam Narrative: GENERAL: Well-appearing, well-nourished, and in no acute distress. HEAD: Normocephalic, atraumatic. ENT:? Mucous membranes moist. CHEST: Clear to auscultation.? No respiratory distress. HEART: Regular rate and rhythm. ? Normal peripheral pulses. ABDOMEN: Soft, nontender, nondistended. EXTREMITIES: Left lateral hip tenderness to palpation, limited range of motion due to pain. No peripheral edema. SKIN: Warm dry normal color, left hip dressing intact and dry. NEURO: Alert and oriented x3. PSYCH: Normal mood and affect Objective Data Vital Signs Vital Signs: Vital Signs - 24 hr 05/15/24 12:09 05/15/24 16:05 05/15/24 20:00 Temperature 97.8 F 97.5 F L Pulse Rate 87 82 Respiratory Rate 16 20 Blood Pressure 116/62 136/71 Pulse Oximetry 100 100 Oxygen Delivery Room Air 05/15/24 20:09 05/15/24 23:33 05/16/24 05:36 Temperature 97.8 F 98.3 F 97.9 F Pulse Rate 78 93 100 Respiratory Rate 18 18 18 Blood Pressure 117/64 143/69 H 135/76 Pulse Oximetry 100 98 100 Oxygen Delivery 05/16/24 08:29 Temperature Pulse Rate Respiratory Rate 18 Blood Pressure Pulse Oximetry 100 Oxygen Delivery Room Air Intake/Output Intake/Output: Intake & Output 05/13/24 05/14/24 05/15/24 05/16/24 23:59 23:59 23:59 23:59 Intake Total 360 1350 2960 940 Output Total 1400 1400 2600 700 Balance -1040 -50 360 240 Meds/Results Medications: Active Medications Generic Name Dose Route Start Last Admin Trade Name Freq PRN Reason Stop Dose Admin Acetaminophen 650 mg 05/13/24 04:06 Acetaminophen 325 Mg Tablet PO Q4H PRN Mild Pain (1-3) or Fever Acetaminophen 650 mg 05/13/24 07:40 05/16/24 05:55 Acetaminophen 325 Mg Tablet PO 650 mg Q6HR TAYLOR Administration Hydrocodone Bitart/Acetaminophen 1 tab 05/13/24 04:06 05/13/24 17:33 Hydrocodone/Acetaminophen (*Crx) 5-325 Mg Tablet PO 1 tab Q4H PRN Administration Pain Rated 4-6 Hydrocodone Bitart/Acetaminophen 1 tab 05/14/24 18:24 05/16/24 09:38 Hydrocodone/Acetaminophen (*Crx) 7.5-325 Mg Tablet PO 1 tab Q4H PRN Administration Pain Rated 7-10 Celecoxib 200 mg 05/15/24 08:00 05/16/24 08:29 Celecoxib 200 Mg Capsule PO 200 mg DAILY@0800 TAYLOR Administration Fentanyl Citrate 25 mcg 05/14/24 12:41 Fentanyl Citrate Inj (*Crx) 100 Mcg/2 Ml Vial IV PUSH Q2M PRN Pain Hydromorphone HCl 1 mg 05/14/24 18:24 05/14/24 18:46 Hydromorphone Hcl Inj (*Crx) 1 Mg/Ml Syr IV PUSH 1 mg Q2H PRN Administration Breakthrough Pain Rated 7-10 or NPO Hydromorphone HCl 0.5 mg 05/14/24 18:24 Hydromorphone Hcl Inj (*Crx) 1 Mg/Ml Syr IV PUSH Q2H PRN Breakthrough Pain Rated 4-6 or NPO Hydroxyzine Pamoate 50 mg 05/14/24 18:24 05/14/24 21:58 Hydroxyzine Pamoate 25 Mg Capsule PO 50 mg Q4H PRN Administration Itching Ibuprofen 800 mg in 200 mls @ 400 mls/hr 05/14/24 18:24 05/14/24 20:33 Caldolor 800 Mg/200 Ml IVPB Infused Q6H PRN Infusion Breakthrough Pain Rated 1-3 or NPO Naloxone HCl 0.1 mg 05/14/24 18:24 Naloxone Hcl 0.4 Mg/Ml Vial IV PUSH Q2M PRN Opiate Reversal Ondansetron HCl 4 mg 05/14/24 14:38 Ondansetron Inj 4 Mg/2 Ml Vial IV PUSH ONCE PRN Nausea Ondansetron HCl 4 mg 05/14/24 18:24 Ondansetron Inj 4 Mg/2 Ml Vial IV PUSH Q4H PRN Nausea And Vomiting Polyethylene Glycol 17 gm 05/15/24 09:00 05/16/24 08:30 Polyethylene Glycol 3350 17 Gm Powd.Pack PO Not Given QAM COUNTS INCLUDE 234 BEDS AT [facility] Rivaroxaban 10 mg 05/15/24 09:00 05/16/24 08:29 Rivaroxaban 10 Mg Tablet PO 06/18/24 09:01 10 mg DAILY@0900 COUNTS INCLUDE 234 BEDS AT [facility] Administration Senna/Docusate Sodium 2 tab 05/14/24 18:24 05/16/24 08:29 Senna/Docusate Sodium Tablet PO 2 tab BID COUNTS INCLUDE 234 BEDS AT [facility] Administration Tramadol HCl 50 mg 05/14/24 18:24 Tramadol Hcl (*Crx) 50 Mg Tablet PO Q4H PRN Pain Rated 1-3 Radiology Results: ITS Impressions Hip/Pelvis X-Ray 05/13/24 06:21 Impression: Acute fracture the basicervical region of the left femoral neck, essentially nondisplaced. Hip CT 05/13/24 19:13 IMPRESSION: 1. Comminuted fracture of left femoral neck. 2. Moderate left hip osteoarthritis. Intraoperative X-Ray 05/14/24 16:30 IMPRESSION: 1. Expected appearance during bipolar type left hip hemiarthroplasty placement. Hip X-Ray 05/14/24 17:05 IMPRESSION: 1. Bipolar left hip hemiarthroplasty in near-anatomic alignment. Labs Labs: Laboratory Results - last 24 hr 05/16/24 05:51 WBC 8.7 RBC 2.99 L Hgb 8.1 L Hct 26.2 L MCV 87.6 MCH 27.1 MCHC 30.9 L RDW 14.3 Plt Count 246 MPV 9.6 Immature Gran % (Auto) 0.5 Neut % (Auto) 78.3 H Lymph % (Auto) 11.0 L [place] % (Auto) 7.9 Eos % (Auto) 2.0 Baso % (Auto) 0.3 Lymph # (Auto) 0.95 [place] # (Auto) 0.7 H Eos # (Auto) 0.2 Baso # (Auto) 0.0 Abs Immat Gran (auto) 0.04 H Absolute Neuts (auto) 6.8 H Absolute Nucleated RBC 0.000 Nucleated RBC % 0.0 Sodium 134 L Potassium 4.6 Chloride 103 Carbon Dioxide 32 H Anion Gap -1 L BUN 7 L Creatinine 0.80 Estim Creat Clear Calc 95 Estimated GFR > 60 Glucose 114 H Calcium 8.4 Magnesium 1.9 Total Bilirubin 0.5 AST 45 ALT 14 Alkaline Phosphatase 54 Total Protein 6.0 L Albumin 3.3 L Quality VTE Prophylaxis VTE prophylaxis: pharmacologic ordered
[2024-05-16 14:12] VITALS: BP 116/77; PULSE 103; RESP 18; TEMP 36.3; O2SAT 100
[2024-05-16 20:37] VITALS: BP 130/69; PULSE 71; RESP 20; TEMP 36.8; O2SAT 99
[2024-05-17] MEDS: HYDROcodone/acetaminophen (*CRX) 7.5-325 MG TABLET 1 TAB PO ×3 (01:47→15:19)
[2024-05-17 02:01] VITALS: BP 132/67; PULSE 76; RESP 20; TEMP 36.9; O2SAT 100
[2024-05-17] MEDS: ACETAMINOPHEN 325 MG TABLET 650 MG PO ×3 (05:00→18:30)
[2024-05-17 06:18] LABS: Basophils Absolute Auto 0.1 K/mm3 (0.0-0.1); Basophils Percent Auto 0.6 % (0.2-1.2); Eosinophils Absolute Auto 0.2 K/mm3 (0-0.3); Eosinophils Percent Auto 2.4 % (0-4.4); Hematocrit 24.9 % (42.0-52.0); Hemoglobin 7.7 g/dL (14.0-18.0); Immature Granulocyte Absolute 0.03 K/mm3 (0.00-0.031); Immature Granulocyte Percent A 0.4 % (0-0.5); Lymphocytes Absolute Auto 1.32 K/mm3 (0.9-3.2); Lymphocytes Percent Auto 16.5 % (18.3-44.2); Mean Corpuscular HGB Conc 30.9 g/dl (32-36); Mean Corpuscular Volume 87.4 fl (80-100); Mean Platelet Volume 9.8 fl (7.4-10.4); Monocytes Absolute Auto 0.7 K/mm3 (0.1-0.6); Monocytes Percent Auto 8.5 % (2.6-8.5); Neutrophils Absolute Auto 5.7 K/mm3 (1.3-6.7); Neutrophils Percent Auto 71.6 % (45.5-73.1); Platelet Count Result 269 k/mm3 (150-375); Red Blood Count 2.85 M/mm3 (4.6-6.20); Red Cell Distribution Width 14.2 % (11.5-14.5)
[2024-05-17 06:28] LABS: Alanine Aminotransferase 14 U/L (6-50); Albumin Level 3.2 g/dL (3.5-5.1); Alkaline Phosphatase 52 U/L (38-126); Anion Gap 1 mmol/L (4-12); Aspartate Amino Transferase 41 U/L (17-59); Bilirubin,Total 0.5 mg/dL (0.2-1.3); Blood Urea Nitrogen 11 mg/dL (9-20); Calcium 8.6 mg/dL (8.4-10.2); Carbon Dioxide 34 mmol/L (22-30); Chloride 101 mmol/L (98-107); Estimated CRCL calculation 95 ml/min; Estimated Glomerular Filt Rate > 60; Glucose 103 mg/dL (65-110); Magnesium 1.9 mg/dL (1.6-2.3); Potassium 4.7 mmol/L (3.4-5.0); Sodium 136 mmol/L (137-145)
[2024-05-17 06:30] VITALS: BP 123/64; PULSE 81; RESP 16; TEMP 36.5; O2SAT 100
--- NOTE | 2024-05-17 08:12 | PCOTNOTE ---
Patient refused treatment this session due to too much pain. 02/05 sitting in the chair. RN notified and will check on patient.
[2024-05-17] MEDS: CELECOXIB 200 MG CAPSULE PO (08:40)
[2024-05-17] MEDS: RIVAROXABAN 10 MG TABLET PO (08:40)
--- NOTE | 2024-05-17 11:25 | P.PNIM_ITS ---
Progress Note: A&P Assessment and Plan (1) Closed subcapital fracture of femur: Code(s): S72.019A - Unspecified intracapsular fracture of unspecified femur, initial encounter for closed fracture Status: Acute Assessment and Plan: Ortho consulted, S/p OR for Bipolar left hip replacement 05/14 --Nonweightbearing left lower extremity --Pain management and bowel protocol --Continue Xarelto --Pending rehab (2) Alcohol intoxication: Code(s): F10.929 - Alcohol use, unspecified with intoxication, unspecified Status: Resolved Assessment and Plan: Ethanol level on arrival 224. Initially on CIWA protocol and fluids, now discontinue and no signs of withdrawal --Monitor symptoms Time Spent With Patient Time: 57 minutes Subjective Date/time seen: 05/17/24 11:25 Interval history: Pain controlled. Therapy recommended rehab, pending insurance Having difficulty ambulating Review of Systems Review of Systems: 12 systems were reviewed and are negativ e except for as per HPI. All systems reviewed & are unremarkable except as noted in HPI and below Exam Narrative: GENERAL: Well-appearing, well-nourished, and in no acute distress. HEAD: Normocephalic, atraumatic. ENT:? Mucous membranes moist. CHEST: Clear to auscultation.? No respiratory distress. HEART: Regular rate and rhythm. ? Normal peripheral pulses. ABDOMEN: Soft, nontender, nondistended. EXTREMITIES: Left lateral hip tenderness to palpation, limited range of motion due to pain. No peripheral edema. SKIN: Warm dry normal color, left hip dressing intact and dry. NEURO: Alert and oriented x3. PSYCH: Normal mood and affect Objective Data Vital Signs Vital Signs: Vital Signs - 24 hr 05/16/24 14:12 05/16/24 20:37 05/17/24 02:01 Temperature 97.4 F L 98.2 F 98.4 F Pulse Rate 103 H 71 76 Respiratory Rate 18 20 20 Blood Pressure 116/77 130/69 132/67 Pulse Oximetry 100 99 100 05/17/24 06:30 Temperature 97.7 F Pulse Rate 81 Respiratory Rate 16 Blood Pressure 123/64 Pulse Oximetry 100 Intake/Output Intake/Output: Intake & Output 05/14/24 05/15/24 05/16/24 05/17/24 23:59 23:59 23:59 23:59 Intake Total 1350 2960 2330 640 Output Total 1400 2600 1999 780 Balance -50 360 330 -140 Meds/Results Medications: Active Medications Generic Name Dose Route Start Last Admin Trade Name Freq PRN Reason Stop Dose Admin Acetaminophen 650 mg 05/13/24 04:06 Acetaminophen 325 Mg Tablet PO Q4H PRN Mild Pain (1-3) or Fever Acetaminophen 650 mg 05/13/24 07:40 05/17/24 05:00 Acetaminophen 325 Mg Tablet PO 650 mg Q6HR TAYLOR Administration Hydrocodone Bitart/Acetaminophen 1 tab 05/13/24 04:06 05/13/24 17:33 Hydrocodone/Acetaminophen (*Crx) 5-325 Mg Tablet PO 1 tab Q4H PRN Administration Pain Rated 4-6 Hydrocodone Bitart/Acetaminophen 1 tab 05/14/24 18:24 05/17/24 08:40 Hydrocodone/Acetaminophen (*Crx) 7.5-325 Mg Tablet PO 1 tab Q4H PRN Administration Pain Rated 7-10 Celecoxib 200 mg 05/15/24 08:00 05/17/24 08:40 Celecoxib 200 Mg Capsule PO 200 mg DAILY@0800 TAYLOR Administration Fentanyl Citrate 25 mcg 05/14/24 12:41 Fentanyl Citrate Inj (*Crx) 100 Mcg/2 Ml Vial IV PUSH Q2M PRN Pain Hydromorphone HCl 1 mg 05/14/24 18:24 05/14/24 18:46 Hydromorphone Hcl Inj (*Crx) 1 Mg/Ml Syr IV PUSH 1 mg Q2H PRN Administration Breakthrough Pain Rated 7-10 or NPO Hydromorphone HCl 0.5 mg 05/14/24 18:24 Hydromorphone Hcl Inj (*Crx) 1 Mg/Ml Syr IV PUSH Q2H PRN Breakthrough Pain Rated 4-6 or NPO Hydroxyzine Pamoate 50 mg 05/14/24 18:24 05/14/24 21:58 Hydroxyzine Pamoate 25 Mg Capsule PO 50 mg Q4H PRN Administration Itching Ibuprofen 800 mg in 200 mls @ 400 mls/hr 05/14/24 18:24 05/14/24 20:33 Caldolor 800 Mg/200 Ml IVPB Infused Q6H PRN Infusion Breakthrough Pain Rated 1-3 or NPO Naloxone HCl 0.1 mg 05/14/24 18:24 Naloxone Hcl 0.4 Mg/Ml Vial IV PUSH Q2M PRN Opiate Reversal Ondansetron HCl 4 mg 05/14/24 14:38 Ondansetron Inj 4 Mg/2 Ml Vial IV PUSH ONCE PRN Nausea Ondansetron HCl 4 mg 05/14/24 18:24 Ondansetron Inj 4 Mg/2 Ml Vial IV PUSH Q4H PRN Nausea And Vomiting Polyethylene Glycol 17 gm 05/15/24 09:00 05/17/24 08:41 Polyethylene Glycol 3350 17 Gm Powd.Pack PO Not Given QAM [facility] Rivaroxaban 10 mg 05/15/24 09:00 05/17/24 08:40 Rivaroxaban 10 Mg Tablet PO 06/18/24 09:01 10 mg DAILY@0900 [facility] Administration Senna/Docusate Sodium 2 tab 05/14/24 18:24 05/17/24 08:42 Senna/Docusate Sodium Tablet PO Not Given BID [facility] Tramadol HCl 50 mg 05/14/24 18:24 Tramadol Hcl (*Crx) 50 Mg Tablet PO Q4H PRN Pain Rated 1-3 Radiology Results: ITS Impressions Hip/Pelvis X-Ray 05/13/24 06:21 Impression: Acute fracture the basicervical region of the left femoral neck, essentially nondisplaced. Hip CT 05/13/24 19:13 IMPRESSION: 1. Comminuted fracture of left femoral neck. 2. Moderate left hip osteoarthritis. Intraoperative X-Ray 05/14/24 16:30 IMPRESSION: 1. Expected appearance during bipolar type left hip hemiarthroplasty placement. Hip X-Ray 05/14/24 17:05 IMPRESSION: 1. Bipolar left hip hemiarthroplasty in near-anatomic alignment. Labs Labs: Laboratory Results - last 24 hr 05/17/24 05:46 WBC 8.0 RBC 2.85 L Hgb 7.7 L Hct 24.9 L MCV 87.4 MCH 27.0 MCHC 30.9 L RDW 14.2 Plt Count 269 MPV 9.8 Immature Gran % (Auto) 0.4 Neut % (Auto) 71.6 Lymph % (Auto) 16.5 L [place] % (Auto) 8.5 Eos % (Auto) 2.4 Baso % (Auto) 0.6 Lymph # (Auto) 1.32 [place] # (Auto) 0.7 H Eos # (Auto) 0.2 Baso # (Auto) 0.1 Abs Immat Gran (auto) 0.03 Absolute Neuts (auto) 5.7 Absolute Nucleated RBC 0.000 Nucleated RBC % 0.0 Sodium 136 L Potassium 4.7 Chloride 101 Carbon Dioxide 34 H Anion Gap 1 L BUN 11 Creatinine 0.80 Estim Creat Clear Calc 95 Estimated GFR > 60 Glucose 103 Calcium 8.6 Magnesium 1.9 Total Bilirubin 0.5 AST 41 ALT 14 Alkaline Phosphatase 52 Total Protein 7.0 Albumin 3.2 L Quality VTE Prophylaxis VTE prophylaxis: pharmacologic ordered Hospitalist MIPS Advance Care Plan I have confirmed that the patient's Advanced Care Plan is present, code status is documented, or surrogate decision maker is listed in patient medical record.: Yes Medication Reconciliation I have utilized all available resources to obtain, update and review the patients current medications (includes all prescriptions, OTC, herbals, cannabis, and nutritional supplements).: Yes
[2024-05-17 14:00] VITALS: BP 102/81; PULSE 83; RESP 16; TEMP 36.7; O2SAT 100
[2024-05-17 19:52] VITALS: BP 112/73; PULSE 75; RESP 20; TEMP 36.7; O2SAT 96
[2024-05-17 20:00] VITALS: PULSE 75; RESP 20; O2SAT 96
[2024-05-18] MEDS: ACETAMINOPHEN 325 MG TABLET 650 MG PO ×2 (00:30→06:04)
[2024-05-18 03:46] VITALS: BP 139/64; PULSE 87; RESP 18; TEMP 37.3; O2SAT 94
[2024-05-18] MEDS: HYDROcodone/acetaminophen (*CRX) 7.5-325 MG TABLET 1 TAB PO ×2 (03:55→13:21)
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
[2024-05-18] MEDS: RIVAROXABAN 10 MG TABLET PO (09:01)
[2024-05-18] MEDS: CELECOXIB 200 MG CAPSULE PO (09:01)
--- OUTSIDE RECORDS SUMMARY | 2024-05-18 11:34 | XMS_ITS | Encounter Summary ---
Author Organization [facility] Address [address] [place] [address]. [place], [place] [id number] [place] [id number] Care Team Providers Care Exchange Teller Name Role Phone None, Provider Primary Care Provider Unavaila ble Encounter Details Date Type Department Care Team (Latest Contact Info) Description 05/07/2024 Travel Social History Tobacco Use Types Packs/Day Years Used Date Smoking Tobacco: Never Assessed Sex and Gender Information Value Date Recorded Sex Assigned at Not on file Legal Sex Male 2:12 PM CDT Gender Identity Not on file Sexual Orientation Not on file documented as of this encounter Plan of Treatment Not on file documented as of this encounter Visit Diagnoses Not on filedocumented in this encounter Care Teams Exchange Teller Relationship Specialty Start Date End Date None, Provider, PCP - General 02/21/22 documented as of this encounter
--- OUTSIDE RECORDS SUMMARY | 2024-05-18 11:34 | XMS_ITS | Data Portability ---
Author Organization SURAJ Anisha TIPTON Address [address] [place] [address] Assessment No assessment recorded. Plan of Treatment Reminders Order Date Submit Date Provider Last Modified By Organization Details Last Modified Time Details Appointments None recorded. Lab lipid panel, serum 2014 015 [facility], [place], [address], 5 09:21:43 hepatic function panel, serum 2014 015 [facility], [address], [place], [address], 5 09:21:43 lipid panel, serum 2015 016 [facility], [facility], [address], [place], [address], 6 10:23:23 hepatic function panel, serum 2015 016 [facility], [address] [facility] [address], [address], [place], [address], 6 10:23:24 HbA1c (hemoglobin A1c), blood 2016 017 [facility], [address] [facility] [address], [address], [place], [address], 7 06:13:51 lipid panel, serum [address] [facility], [address] [facility] [address], [place], [address], 7 06:13:51 CMP, serum or plasma [address] [facility], [address] [facility] [address], [address], [place], [address], 7 06:13:50 HbA1c (hemoglobin A1c), blood [address] [facility], [address] [facility] [address], [place], [address], 7 06:17:02 lipid panel, serum [address] [facility], [address] [facility] [address], [address], [place], [address], 7 06:17:01 Referral None recorded. Procedures None recorded. Surgeries None recorded. Imaging None recorded. Medication Orders pravastatin 40 mg tablet 2014 015 [id number], [address], [place], [id number], 7 15:03:12 trazodone 50 mg tablet 2015 016 [facility][id number], [address], [place], [id number], 7 15:04:11 Patient TargetsNo targets recorded. Patient Instructions Encounter Date Encounter Id Patient Instructions Last Modified By Organization Details Last Modified Time 02/13/2015 [id number] Declined flu vaccine eewig Not available 02/13/2015 12:46:49 04/29/2015 [id number] Declined flu vaccine eewig Not available 04/29/2015 12:40:01 11/04/2016 [id number] A healthy lifestyle: care instructions [email or web address] Not available 11/04/2016 16:28:48 03/22/2017 [id number] A healthy lifestyle: care instructions Not available 03/22/2017 17:37:41 prediabetes: car e instructions Not available 03/22/2017 17:37:41 Reason for Referral None Reported. Results Created Date Observation Date Name Description Value Unit Range Abnormal Flag Note LastModifiedBy Organization Detail LastModifiedTime 02/14/20 15 02/14/2015 lipid panel , serum cholesterol, total 177 mg/dL 100-19 9 Not Available [facility] ([facility]) [address] [place], [address], 02/14/2015 09:21:43 02/14/20 15 02/14/2015 lipid panel , serum triglyceride s 117 mg/dL 0-149 Not Available [facility] ([facility]) [address] [place], [address], 02/14/2015 09:21:43 02/14/20 15 02/14/2015 lipid panel , serum HDL cholesterol 50 mg/dL >39 ACCOR DING TO ATP-I II GUIDE LINES , HDL-C >59 MG/DL IS CONSI DERED A NEGAT TONG RISK FACTO R FOR CHD. Not Available [facility] ([facility]) [address] [place], [address], 02/14/2015 09:21:43 02/14/20 15 02/14/2015 lipid panel , serum VLDL cholesterol derick 23 mg/dL 5-40 Not Available [facility] ([facility]) [address] [place], [address], 02/14/2015 09:21:43 02/14/2002/14/2015 lipid panel , serum LDL cholesterol calc 104 mg/dL 0-99 above high normal Not Available [facility] ([facility]) [address] [place], [address], 02/14/2015 09:21:43 02/14/20 15 02/14/2015 lipid panel , serum comment: SCHOOL ATTENDANCE SECRETARY Not Available [facility] ([facility]) [address] [facility], [place], [address], 02/14/2015 09:21:43 02/14/20 15 02/14/2015 lipid panel , serum T. chol/HDL ratio 3.5 ratio _unit s 0.0-5. 0 T. CHOL/ HDL RATIO MEN WOMEN 1/2 AVG.R ISK 3.4 3.3 AVG.R ISK 5.0 4.4 2X AVG.R ISK 9.6 7.1 3X AVG.R ISK 23.4 11.0 Not Available [facility] ([facility]) [address] [facility], [place], [address], 02/14/2015 09:21:43 02/14/20 15 02/14/2015 hepat ic funct ion panel , serum protein, total, serum 7.3 g/dL 6.0-8. 5 Not Available [facility] ([facility]) [address] [place], [address], 02/14/2015 09:21:43 02/14/20 15 02/14/2015 hepat ic funct ion panel , serum albumin, serum 4.5 g/dL 3.5-5. 5 Not Available [facility] ([facility]) [address] [place], [address], 02/14/2015 09:21:43 02/14/20 15 02/14/2015 hepat ic funct ion panel , serum bilirubin, total 0.4 mg/dL 0.0-1. 2 Not Available [facility] ([facility]) [address] [place], [address], 02/14/2015 09:21:43 02/14/20 15 02/14/2015 hepat ic funct ion panel , serum bilirubin, direct 0.11 mg/dL 0.00-0 .40 Not Available [facility] ([facility]) [address] [place], [address], 02/14/2015 09:21:43 02/14/20 15 02/14/2015 hepat ic funct ion panel , serum alkaline phosphatase, S 48 IU/L 39-117 Not Available [facility] ([facility]) [address] [facility], [place], [address], 02/14/2015 09:21:43 02/14/20 15 02/14/2015 hepat ic funct ion panel , serum AST (SGOT) 25 IU/L 0-40 Not Available [facility] ([facility]) [address] [facility] [place], [address], 02/14/2015 09:21:43 02/14/20 15 02/14/2015 hepat ic funct ion panel , serum ALT (SGPT) 28 IU/L 0-44 Not Available [facility] ([facility]) [address] [facility] [place], [address], 02/14/2015 09:21:43 07/29/19 16 07/30/2015 lipid panel , serum cholesterol, total 185 mg/dL 100-19 9 Not Available [facility] ([facility]) [address] [facility], [place], [address], 07/30/2015 10:23:23 07/29/19 16 07/30/2015 lipid panel , serum triglyceride s 116 mg/dL 0-149 Not Available [facility] ([facility]) [address] [place], [address], 07/30/2015 10:23:23 07/29/19 16 07/30/2015 lipid panel , serum HDL cholesterol 47 mg/dL >39 ACCOR DING TO ATP-I II GUIDE LINES , HDL-C >59 MG/DL IS CONSI DERED A NEGAT TONG RISK FACTO R FOR CHD. Not Available [facility] ([facility]) [address] [facility] [place], [address], 07/30/2015 10:23:23 07/29/19 16 07/30/2015 lipid panel , serum VLDL cholesterol derick 23 mg/dL 5-40 Not Available [facility] ([facility]) [address] [place], [address], 07/30/2015 10:23:23 07/29/19 16 07/30/2015 lipid panel , serum LDL cholesterol calc 115 mg/dL 0-99 above high normal Not Available [facility] ([facility]) [address] [place], [address], 07/30/2015 10:23:23 07/29/19 16 07/30/2015 lipid panel , serum comment: SCHOOL ATTENDANCE SECRETARY Not Available [facility] ([facility]) [address] [place], [address], 07/30/2015 10:23:23 07/29/19 16 07/30/2015 lipid panel , serum T. chol/HDL ratio 3.9 ratio _unit s 0.0-5. 0 T. CHOL/ HDL RATIO MEN WOMEN 1/2 AVG.R ISK 3.4 3.3 AVG.R ISK 5.0 4.4 2X AVG.R ISK 9.6 7.1 3X AVG.R ISK 23.4 11.0 Not Available [facility] ([facility]) [address] [place], [address], 07/30/2015 10:23:23 07/29/19 16 07/30/2015 hepat ic funct ion panel , serum protein, total, serum 7.4 g/dL 6.0-8. 5 SPECI MEN RECEI ZACH HEMOL YZED. CLINI DERICK CORRE LATIO N INDIC ATED. Not Available [facility] ([facility]) [address] [place], [address], 07/30/2015 10:23:24 07/29/19 16 07/30/2015 hepat ic funct ion panel , serum albumin, serum 4.5 g/dL 3.5-5. 5 Not Available [facility] ([facility]) [address] [place], [address], 07/30/2015 10:23:24 07/29/19 16 07/30/2015 hepat ic funct ion panel , serum bilirubin, total 0.4 mg/dL 0.0-1. 2 Not Available [facility] ([facility]) [address] [facility], [place], [address], 07/30/2015 10:23:24 07/29/19 16 07/30/2015 hepat ic funct ion panel , serum bilirubin, direct 0.10 mg/dL 0.00-0 .40 Not Available [facility] ([facility]) [address] [facility], [place], [address], 07/30/2015 10:23:24 07/29/19 16 07/30/2015 hepat ic funct ion panel , serum alkaline phosphatase, S 54 IU/L 39-117 Not Available [facility] ([facility]) [address] [facility], [place], [address], 07/30/2015 10:23:24 07/29/19 16 07/30/2015 hepat ic funct ion panel , serum AST (SGOT) 30 IU/L 0-40 Not Available [facility] ([facility]) [address] [facility], [place], [address], 07/30/2015 10:23:24 07/29/19 16 07/30/2015 hepat ic funct ion panel , serum ALT (SGPT) 33 IU/L 0-44 Not Available [facility] ([facility]) [address] [facility], [place], [address], 07/30/2015 10:23:24 11/05/19 17 11/05/2016 CMP, serum or plasm a glucose, serum 96 mg/dL 65-99 SPECI MEN RECEI ZACH IN CONTA CT WITH CELLS . NO VISIB LE HEMOL YSIS PRESE NT. HOWEV ER GLUC MAY BE DECRE ASED AND K INCRE ASED. CLINI DERICK CORRE LATIO N INDIC ATED. Not Available [facility] ([facility]) [address] [facility] [place], [address], 11/05/2016 06:13:50 11/05/19 17 11/05/2016 CMP, serum or plasm a BUN 13 mg/dL 6-24 Not Available [facility] ([facility]) [address] [facility] [place], [address], 11/05/2016 06:13:50 11/05/1911/05/2016 CMP, serum or plasm a creatinine, serum 1.11 mg/dL 0.76-1 .27 Not Available [facility] ([facility]) [address] [facility] [place], [address], 11/05/2016 06:13:50 11/05/1911/05/2016 CMP, serum or plasm a eGFR if nonafricn AM 81 mL/mi n/1.7 3 >59 Not Available [facility] ([facility]) [address] [facility] [place], [address], 11/05/2016 06:13:50 11/05/19 17 11/05/2016 CMP, serum or plasm a eGFR if africn AM 94 mL/mi n/1.7 3 >59 Not Available [facility] ([facility]) [address] [facility], [place], [address], 11/05/2016 06:13:50 11/05/19 17 11/05/2016 CMP, serum or plasm a BUN/creatini ne ratio 12 9-20 Not Available [facility] ([facility]) [address] [facility] [place], [address], 11/05/2016 06:13:50 11/05/1911/05/2016 CMP, serum or plasm a sodium, serum 140 mmol/ L 134-14 4 Not Available [facility] ([facility]) [address] [facility] [place], [address], 11/05/2016 06:13:50 11/05/1911/05/2016 CMP, serum or plasm a potassium, serum 4.5 mmol/ L 3.5-5. 2 Not Available [facility] ([facility]) [address] [place], [address], 11/05/2016 06:13:50 11/05/1911/05/2016 CMP, serum or plasm a chloride, serum 98 mmol/ L 96-106 Not Available [facility] ([facility]) [address] [place], [address], 11/05/2016 06:13:50 11/05/1911/05/2016 CMP, serum or plasm a carbon dioxide, total 24 mmol/ L 18-29 Not Available [facility] ([facility]) [address] [place], [address], 11/05/2016 06:13:50 11/05/1911/05/2016 CMP, serum or plasm a calcium, serum 8.8 mg/dL 8.7-10 .2 Not Available [facility] ([facility]) [address] [place], [address], 11/05/2016 06:13:50 11/05/1911/05/2016 CMP, serum or plasm a protein, total, serum 7.3 g/dL 6.0-8. 5 Not Available [facility] ([facility]) [address] [place], [address], 11/05/2016 06:13:50 11/05/1911/05/2016 CMP, serum or plasm a albumin, serum 4.4 g/dL 3.5-5. 5 Not Available [facility] ([facility]) [address] [place], [address], 11/05/2016 06:13:50 11/05/1911/05/2016 CMP, serum or plasm a globulin, total 2.9 g/dL 1.5-4. 5 Not Available [facility] ([facility]) [address] [place], [address], 11/05/2016 06:13:50 11/05/1911/05/2016 CMP, serum or plasm a A/G ratio 1.5 1.2-2. 2 Not Available [facility] ([facility]) [address] [facility] [place], [address], 11/05/2016 06:13:50 11/05/1911/05/2016 CMP, serum or plasm a bilirubin, total <0.2 mg/dL 0.0-1. 2 Not Available [facility] ([facility]) [address] [facility] [place], [address], 11/05/2016 06:13:50 11/05/1911/05/2016 CMP, serum or plasm a alkaline phosphatase, S 53 IU/L 39-117 Not Available [facility] ([facility]) [address] [place], [address], 11/05/2016 06:13:50 11/05/1911/05/2016 CMP, serum or plasm a AST (SGOT) 23 IU/L 0-40 Not Available [facility] ([facility]) [address] [place], [address], 11/05/2016 06:13:50 11/05/1911/05/2016 CMP, serum or plasm a ALT (SGPT) 22 IU/L 0-44 Not Available [facility] ([facility]) [address] [place], [address], 11/05/2016 06:13:50 11/05/1911/05/2016 lipid panel , serum cholesterol, total 214 mg/dL 100-19 9 above high normal Not Available [facility] ([facility]) [address] [place], [address], 11/05/2016 06:13:51 11/05/1911/05/2016 lipid panel , serum triglyceride s 149 mg/dL 0-149 Not Available [facility] ([facility]) [address] [facility] [place], [address], 11/05/2016 06:13:51 11/05/19 17 11/05/2016 lipid panel , serum HDL cholesterol 39 mg/dL >39 below low normal Not Available [facility] ([facility]) [address] [facility] [place], [address], 11/05/2016 06:13:51 11/05/19 17 11/05/2016 lipid panel , serum VLDL cholesterol derick 30 mg/dL 5-40 Not Available [facility] ([facility]) [address] [facility] [place], [address], 11/05/2016 06:13:51 11/05/1911/05/2016 lipid panel , serum LDL cholesterol calc 145 mg/dL 0-99 above high normal Not Available [facility] ([facility]) [address] [place], [address], 11/05/2016 06:13:51 11/05/1911/05/2016 lipid panel , serum comment: SCHOOL ATTENDANCE SECRETARY Not Available [facility] ([facility]) [address] [place], [address], 11/05/2016 06:13:51 11/05/19 17 11/05/2016 HbA1c (hemo globi n A1c), blood hemoglobin A1C 6.0 % 4.8-5. 6 above high normal PRE-D IABET ES: 5.7 - 6.4 DIABE JESSIE: >6.4 GLYCE MARY BETH CONTR OL FOR ADULT S WITH DIABE JESSIE: <7.0 Not Available [facility] ([facility]) [address] [facility] [place], [address], 11/05/2016 06:13:51 03/22/20 17 03/23/2017 lipid panel , serum cholesterol, total 184 mg/dL 100-19 9 Not Available [facility] ([facility]) [address] [place], [address], 03/23/2017 06:17:01 03/22/20 17 03/23/2017 lipid panel , serum triglyceride s 145 mg/dL 0-149 Not Available [facility] ([facility]) [address] [facility], [place], [address], 03/23/2017 06:17:01 03/22/20 17 03/23/2017 lipid panel , serum HDL cholesterol 49 mg/dL >39 Not Available [facility] ([facility]) [address] [facility], [place], [address], 03/23/2017 06:17:01 03/22/2003/23/2017 lipid panel , serum VLDL cholesterol derick 29 mg/dL 5-40 Not Available [facility] ([facility]) [address] [facility], [place], [address], 03/23/2017 06:17:01 03/22/20 17 03/23/2017 lipid panel , serum LDL cholesterol calc 106 mg/dL 0-99 above high normal Not Available [facility] ([facility]) [address] [place], [address], 03/23/2017 06:17:01 03/22/2003/23/2017 lipid panel , serum comment: SCHOOL ATTENDANCE SECRETARY Not Available [facility] ([facility]) [address] [facility], [place], [address], 03/23/2017 06:17:01 03/22/2003/23/2017 HbA1c (hemo globi n A1c), blood hemoglobin A1C 5.7 % 4.8-5. 6 above high normal Pre-d iabet es: 5.7 - 6.4 Diabe jessie: >6.4 Glyce mary beth contr ol for adult s with diabe jessie: <7.0 Not Available [facility] ([facility]) [address] [facility], [place], [address], 03/23/2017 06:17:02 Result Notes None recorded. Problems Name Problem SNOMED Code Status Onset Date Resolution Date Notes Provider Name and Address Organization Details Recorded Time Inguinal hernia 848676405 Active rt side Viola Byrd PA-C Attn: Accounting ,[address] [facility], [place], [place], [address] [place] [address] , [facility] 5 12:47:07 Gastroesophag eal reflux disease 122177312 Active Viola Byrd PA-C Attn: Accounting ,[address], [place], [address] [place] [address] , [facility] 5 13:44:48 Impacted cerumen 38838167 Active Viola Byrd PA-C Attn: Accounting ,[address], [place], [address] [place] [address] , [facility] 5 13:44:48 Otitis media 92253816 Active Viola Byrd PA-C Attn: Accounting ,[address], [place], [address] [place] [address] , [facility] 5 13:44:48 Hyperlipidemi a 64319920 Active Viola Byrd PA-C Attn: Accounting ,[address], [place], [address] [place] [address] , [facility] 6 15:23:21 Insomnia 653920270 Active Viola Byrd PA-C Attn: Accounting ,[address], [place], [address] [place] [address] , [facility] 6 13:11:29 Hypercholeste rolemia 12453565 Active 2016 VANDA Mcmanus NP Attn: Accounting ,[address], [place], [address] [place] [address] , [facility] 7 10:46:31 Prediabetes 045527968 Active 2016 VANDA Mcmanus NP Attn: Accounting ,[address], [place], [address] [place] [address] , [facility] 7 17:21:32 Problem Notes None recorded. Procedures Surgical History Date Name Laterality Status Provider Name and Address Organization Details Recorded Time 5 Cerumen Removal completed Viola Byrd PA-C Attn: Accounting,[address] [facility], [place], [address], [facility] 11/14/2014 13:46:34 Imaging Results None recorded. Procedure Notes None recorded. Medical Equipment None Reported. Allergies No known drug allergies Medications Name Sig Start Date Stop Date Status Note LastModified by Organization Details LastModified Time amoxicillin 500 mg caps 04/29 completed Not Available Not Available Not Available famotidine tab 20mgfamotidi ne 04/29 completed Not Available Not Available Not Available pravastatin sodium 40 mg tabs 04/29 completed Not Available Not Available Not Available oxycodone/ac etaminophen 5-325 mg tabs 04/29 completed Not Available Not Available Not Available amoxicillin cap 500mgamoxici llin 04/29 completed Not Available Not Available Not Available famotidine 20 mg tabs 04/29 completed Not Available Not Available Not Available q-pap 325 mg tabs 04/29 completed Not Available Not Available Not Available metocloprami de hcl 10 mg tabs 04/29 completed Not Available Not Available Not Available amoxicillin 500 mg capsule 07/28 completed Not Available Not Available Not Available trazodone 50 mg tablet Take 1 tablet every day by oral route at bedtime. 11/04 completed Not Available Not Available Not Available atorvastatin 10 mg tablet TAKE 1 TABLET BY MOUTH EVERY DAY AT BEDTIME 2017 active Not Available Not Available Not Avai lable pravastatin 40 mg tablet TAKE 1 TABLET BY MOUTH EVERY DAY 11/04 completed Not Available Not Available Not Available amoxicillin 500 mg tablet Take 1 tablet every 12 hours by oral route for 10 days. 04/29 completed Not Available Not Available Not Available oxycodone-ac etaminophen 5 mg-325 mg tablet 07/28 completed Not Available Not Available Not Available famotidine 20 mg tablet TAKE 1 TABLET BY MOUTH TWICE DAILY 07/28 completed Not Available Not Available Not Available pravastatin 80 mg tablet Take 1 tablet every day by oral route. 11/04 completed Not Available Not Available Not Available metocloprami de 10 mg tablet 07/28 completed Not Available Not Available Not Available Q-PAP 325 mg tablet 07/28 completed Not Available Not Available Not Available Vitals Date Recorded Respiratory rate Body weight Oxygen saturation Oxygen saturation in Arterial blood by Pulse oximetry Body height Body mass index (BMI) Body temperature Heart rate Systolic blood pressure Diastolic blood pressure Provider Name and Address Organization Details Last Updated DateTime 5 20 /min 69183.8 18389 g 97 % 97 % 175.26 cm 26.7 kg/m2 98 [degF] 75 /min 118 mm[Hg] 76 mm[Hg] [facility] 5 12:27:43 Date Recorded Body weight Oxygen saturation Oxygen saturation in Arterial blood by Pulse oximetry Body temperature Heart rate Body mass index (BMI) Body height Systolic blood pressure Diastolic blood pressure Provider Name and Address Organization Details Last Updated DateTime 5 37336.5 83437 g 99 % 99 % 97.7 [degF] 66 /min 27.1 kg/m2 175.26 cm 118 mm[Hg] 70 mm[Hg] [facility] 5 12:34:14 Date Recorded Heart rate Body weight Body temperature Body mass index (BMI) Body height Oxygen saturation Oxygen saturation in Arterial blood by Pulse oximetry Respiratory rate Systolic blood pressure Diastolic blood pressure Provider Name and Address Organization Details Last Updated DateTime 6 60 /min 80650.1 15845 g 98 [degF] 27.1 kg/m2 175.26 cm 98 % 98 % 20 /min 128 mm[Hg] 84 mm[Hg] [facility] 6 12:33:10 Date Recorded Body height Body weight Body mass index (BMI) Oxygen saturation Oxygen saturation in Arterial blood by Pulse oximetry Heart rate Body temperature Systolic blood pressure Diastolic blood pressure Provider Name and Address Organization Details Last Updated DateTime 7 175.26 cm 97343.6 6 g 26 kg/m2 97 % 97 % 66 /min 97.8 [degF] 124 mm[Hg] 84 mm[Hg] Peggy Cole CMA [facility] 7 14:38:09 Date Recorded Body height Body mass index (BMI) Body weight Body temperature Oxygen saturation Oxygen saturation in Arterial blood by Pulse oximetry Heart rate Systolic blood pressure Diastolic blood pressure Provider Name and Address Organization Details Last Updated DateTime 7 175.26 cm 25.8 kg/m2 30853.5 1 g 98.7 [degF] 97 % 97 % 76 /min 120 mm[Hg] 90 mm[Hg] Tony Aleman [facility] 7 15:10:03 Social History Question Answer Notes LastModified by Organizat ion Details LastModified Time Tobacco Smoking Status Never Smoker HILARY [place], [place] - [facility] 11/14/2014 12:10:45 Do You Have An Advance Directive? No [email or web address] Information not available 11/14/2014 What Is Your Level Of Alcohol Consumption? Occasional [email or web address] Information not available 11/14/2014 What Is Your Level Of Caffeine Consumption? Moderate [email or web address] Information not available 11/14/2014 How Much Tobacco Do You Chew? None Information not available 11/14/2014 What Type Of Diet Are You Following? REGULAR Information not available 11/14/2014 Which Illicit Or Recreational Drugs Have You Used? 0 [email or web address] Information not available 11/14/2014 Are There Any Guns Present In Your Home? No [email or web address] Information not available 11/14/2014 Hard Of Hearing Or Deaf In One Or Both Ears? No [email or web address] Information not available 11/14/2014 Legally Blind In One Or Both Eyes? No [email or web address] Information no t available 11/14/2014 Live Alone Or With Others? With Others [email or web address] Information not available 11/14/2014 What Was The Date Of Your Most Recent Tobacco Screening? 03/22/2017 Information not available 12/20/2018 How Many Children Do You Have? 1 [email or web address] Information not available 11/14/2014 Do You Use Protection During Sex? Always [email or web address] Information not available 11/14/2014 Seat Belts Used Routinely Yes [email or web address] Information not available 11/14/2014 Are You Sexually Active? Yes [email or web address] Information not available 11/14/2014 Smoke Alarm In Home Yes [email or web address] Information not available 11/14/2014 Are You Passively Exposed To Smoke? No [email or web address] Information no t available 11/14/2014 Sex: Unknown Functional Status Question Answer Note LastModified by Organization D etails LastModified Time Are you able to care for yourself? Yes [email or web address] Information n ot available 11/14/2014 What is your exercise level? None [email or web address] Information not available 11/14/2014 Mental Status None recorded. Family History Relationship Description Onset Age of this Age Resolved Age Notes LastModified by Organization Details LastModified Time Mother Asthma [email or web address] Not available 0 07/29/2015 12:33:11 Mother Hypertensive disorder [email or web address] Not available 2015 12:33:11 Father Asthma Not available 0 07/29/2015 12:33:11 Father Hypertensive disorder [email or web address] Not available 2015 12:33:11 Medical History Condition Response Coronary Artery Disease N Other N Atrial Fibrillation N High Blood Pressure N Depression N COPD N Blood Clots N Anxiety Disorder N Muscle, Joint, or Bone Problems N Acid Reflux (GERD) N Cancer N Stroke N High Cholesterol N Liver Disease N Headaches N Kidney or Bladder Problems N Thyroid Problems N GI Problems N Skin Problems N Anemia N Heart Attack (HI) N Diabetes N Seizures/Epilepsy N Asthma N Allergies N Hepatitis N Heart Failure N Osteoporosis N Immunizations Vaccine Type Date Status Note Provider Nam e and Address Organization Details Recorded Time Influenza, split virus, quadrivalent, preservative 5 completed Not Available [facility] 06/15/2019 02:43:04 Past Encounters Encounter ID Performer Location Encounter Start Date Encounter Closed Date Diagnosis/Indication Diagnosis SNOMED-CT Code Diagnosis ICD10 Code [id number] Neyda (Adult Med) [address] [place] [address] [phone] 11/14/2014 11:38:31 11/14/2014 13:47:07 Gastroesophageal reflux disease 836332691 Inguinal hernia 93196830 0 Adult heal th examination 020728395 Impacted cerumen 5030349 6 Otitis media 22750614 [id number] Breonnanatalie Faye (Adult Med) [address] [place] [address] [phone] 0 11/18/2014 08:47:10 11/18/2014 10:52:20 [id number] Neyda (Adult Med) [address] [place] [address] [id number] 02/13/2015 12:01:41 02/13/2015 12:47:32 Inguinal hernia 144468382 Hyperlipidemia 09291601 [id number] VIRA Davidson (Adult Med) [address] [place] [address] [phone] 0 04/29/2015 12:10:36 04/29/2015 12:41:59 Hyperlipidemia 22744082 E78.5 Active or passive immunization 051333450 Z23 [id number] VIRA Davidson (Adult Med) [address] [place] [address] [phone] 0 07/29/2015 12:18:30 07/29/2015 12:52:16 Insomnia 680043428 G47.00 Hyperlipidemia 90728898 E78.5 [id number] Peggy Cole CMA [facility] [address] [place] [address] 11/04/2016 14:18:58 11/04/2016 15:21:16 Hyperlipidemia 84537837 E78.5 Diabetes m ellitus screening 423762273 Z13.1 [id number] VANDA Mcmanus NP [facility] [address] [place] [address] 03/22/2017 14:59:35 03/22/2017 17:24:03 Hyperlipidemia 84714100 E78.5 Prediabetes 870730050 R7 3.03 Health Concerns Section Related Observation LastModified by Organization Detai ls LastModified Time None Recorded Concern Status LastModified by Organization Details LastModified Time None Recorded Advance Directives Directive N: Payers Encounter Date Sequence Insurance Name Policy Number Policy Maldonado Covered Member ID Maldonado Member ID Guarantor Name 02/13/2015 1 [facility] (MEDICAID HMO) Abelardo Quevedo [id number] Rao Quevedo 04/29/2015 1 [facility] (MEDICAID HMO) Abelardo Quevedo [id number] Rao Quevedo 07/29/2015 1 [facility] (MEDICAID HMO) Abelardo Quevedo [id number] Rao Quevedo 11/04/2016 1 [facility] (MEDICAID HMO) Abelardo Quevedo [id number] Rao Quevedo 03/22/2017 1 [facility] (MEDICAID HMO) Abelardo Quevedo [id number] Rao Quevedo Notes Date Note Type Note Provider Name and Address Organization Details Recorded Time 5 text/htm l HyperlipidemiaReported bypatient.Duration:new onset Current Therapy:currently taking: (pravastatin) Compliance:compliant; compliant with diet; exercises Complications:no cardiovascular disease Viola Byrd PA-C Attn: Accounting,[address] [facility], [place], [address], [facility] 04/29/2015 12:41:51 6 text/htm l HyperlipidemiaReported bypatient.Current Therapy:currently taking: (pravastatin 40mg); last cholesterol level: (177); last LDL level: (104); last triglyceride level: (117); last HDL level: (50) Compliance:compliant; compliant with diet; exercises Complications:no coronary artery disease; no peripheral artery disease; no cardiovascular diseaseInsomniaReported bypatient.Quality:symptoms worse in the evening Severity:worsening Duration:intermittent Context:problems falling asleep and staying asleep Modifying Factors:trying to just drink water Viola Byrd PA-C Attn: Accounting,[address] [facility], [place], [address], [facility] 07/29/2015 13:11:52 7 text/htm l Patient presents today for a check-up . States that he is not currently taking any medications. States the pravastatin made him have very bad dizzy spells in the morning. The dizziness has stopped since not taking the pravastatin. He reports having migraines 3x per month relived with excedrin. Peggy Cole CMA [facility], [facility] 11/04/2016 16:06:33 7 text/htm l Patient presents today for follow-up. States that he has been taking his atorvastatin when he remembers. Denies side effects. He has lost 2 lbs since last visit. Refuses flu shot today. Reports that he only eats 1 meal per day. He goes out at night and sleeps most of the day. Smokes marijuana daily VANDA Mcmanus NP Attn: Accounting,[address] [facility], [place], [address], [facility] 03/22/2017 17:23:21
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
--- OUTSIDE RECORDS SUMMARY | 2024-05-18 11:34 | XMS_ITS | Encounter Summary ---
Author Organization [facility] Address [address] [place] [address]. [place], [place] [id number] [place] [address] Care Team Providers Care Mergers And Acquisitions Manager Name Role Phone None, Provider MD Primary Care Provider Yaya Rodriguez MD Unavailable Reason for Referral * Consultation (Routine) - New Request Specialty Diagnoses / Procedures Referred By Contsuraj t Referred To Contact GASTROENTEROLOGY Diagnoses Hematochezia Callum Kim MD [address] [place] [address] Phone: tel: fax: [place] [address] [place] [address] Phone: tel: fax: Referral ID Status Reason Start Date Expiration Date V isits Requested Visits Authorized [id number] New Request 05/08/2024 05/08/2025 1 1 HOUSE SHIPPING SUPERVISOR Reason for Visit * Reason Comments Blood In Stool Encounter Details Date Type Department Care Team (Late st Contact Info) Description 05/07/2024 11:58 PM WAREHOUSE SHIPPING SUPERVISOR - 05/08/2024 2:00 AM WAREHOUSE SHIPPING SUPERVISOR Emergency [facility] Emergency Room [address] [place] [address] Callum Kim MD [address] [place] [id number] Blood In Stool Discharge Disposition: Home or Self Care (Routine Discharge) Social History Tobacco Use Types Packs/Day Years Used Date Smoking Tobacco: Never Smokeless Tobacco: Never Tobacco Cessation:Counseling Given: Not Answered Sex and Gender Information Value Date Recorded Sex Assigned at Not on file Legal Sex Male 2:12 PM CDT Gender Identity Not on file Sexual Orientation Not on file documented as of this encounter Last Filed Vital Signs Vital Sign Reading Time Taken Comments Blood Pressure 160/83 05/08/2024 12:01 AM WAREHOUSE SHIPPING SUPERVISOR Pulse 65 05/08/2024 12:01 AM WAREHOUSE SHIPPING SUPERVISOR Temperature 36.6 ??C (97.9 ??F) 05/08/2024 12:[address] Respiratory Rate 18 05/08/2024 12:01 AM WAREHOUSE SHIPPING SUPERVISOR Oxygen Saturation 98% 05/08/2024 12:01 AM WAREHOUSE SHIPPING SUPERVISOR Inhaled Oxygen Concentration - - Weight 74.4 kg (164 lb) 05/08/2024 12:01 AM WAREHOUSE SHIPPING SUPERVISOR Height 175.3 cm (5' 9 ) 05/08/2024 12:01 AM WAREHOUSE SHIPPING SUPERVISOR Body Mass Index 24.22 05/08/2024 12:01 AM WAREHOUSE SHIPPING SUPERVISOR documented in this encounter Discharge Instructions * Discharge Instructions* Callum Kim MD - 05/08/2024 1:49 AM WAREHOUSE SHIPPING SUPERVISOR You were seen in the emergency department for blood in your stool. Your vital signs and hemoglobin were within normal limits which is good. You did have a couple of small hemorrhoids but they were not bleeding and you also had blood on the inside of your rectum which is not typical with simple hemorrhoids. We are going to give you a referral for a postage machine operator to have a colonoscopy done that will be able to hopefully figure out why you are having this bleeding. Call this number to schedule an appointment. Continue to monitor your symptoms at home and return to the emergency department if you begin to have an increasingly significant amount of blood at one time of if you begin to have symptoms from your bleeding such as chest pain, shortness of breath, lightheadedness, dizziness. HOUSE SHIPPING SUPERVISOR * Attachments The following attachments cannot be sent through Care Everywhere. * Bloody Stools, Adult ED (Tongan) * Hemorrhoids Discharge Instructions (Tongan) documented in this encounter ED Notes * Callum Kim MD - 05/08/2024 12:22 AM CST Chief Complaint Chief Complaint Patient presents with Blood In Stool History of Present Illness This is a 53-year-old male previously medically healthy who presents to the emergency department with bright red blood per rectum. Patient's symptoms started earlier this evening and he has had 3 episodes of bloody stools. He denies any abdominal pain, nausea, vomiting, prior history of this before in the past, denies any chest pain, shortness of breath. He is not take any blood thinners. He denies any recent bleeding in his mouth or nose. Medical History ALLERGIES: Review of patient's allergies indicates: Allergen Reactions Coconut (Cocos Nucifera) Anaphylaxis MEDICATIONS: Prior to Admission medications Not on File PAST MEDICAL HISTORY: History reviewed. No pertinent past medical history. PAST SURGICAL HISTORY: History reviewed. No pertinent surgical history. FAMILY HISTORY: No family history on file. SOCIAL HISTORY: Social History Tobacco Use Smoking status: Never Smokeless tobacco: Never Review of Systems Review of Systems All other systems reviewed and are negative. Physical Exam Filed Vitals: 05/08/24 0001 BP: (!) 160/83 Pulse: 65 Resp: 18 Temp: 97.9 ??F (36.6 ??C) TempSrc: Temporal SpO2: 98% Weight: 74.4 kg (164 lb) Height: 1.753 m (5' 9 ) Physical Exam Vitals and nursing note reviewed. Constitutional: General: He is not in acute distress. Appearance: Normal appearance. He is not ill-appearing or toxic-appearing. Cardiovascular: Rate and Rhythm: Normal rate and regular rhythm. Pulses: Normal pulses. Abdominal: General: Abdomen is flat. Tenderness: There is no abdominal tenderness. There is no guarding or rebound. Genitourinary: Comments: Rectum shows evidence of 2 nonbleeding hemorrhoids rectal exam with small amount of stoolstool with obvious bright red blood Musculoskeletal: General: No swelling or tenderness. Right lower leg: No edema. Left lower leg: No edema. Skin: General: Skin is warm. Neurological: Mental Status: He is alert. Diagnostic Studies / Procedures ELECTROCARDIOGRAMS: No results found for this visit on 05/07/24. LABORATORY STUDIES: Results for orders placed or performed during the hospital encounter of 05/07/24 CBC W/DIFF AUTOMATED Result Value Ref Range WBC 6.75 4.4 - 11.0 x10'3/uL RBC 4.85 4.50 - 5.90 x10'6/uL HGB 13.4 (L) 14.0 - 17.5 G/DL HCT 42.6 41.5 - 50.4 % MCV 87.8 80.0 - 96.0 FL MCH 27.6 26.5 - 31.4 PG MCHC 31.5 (L) 31.9 - 34.8 G/DL RDW 14.3 12.3 - 14.3 % PLT 277 151 - 353 x10'3/uL MPV 10.6 9.7 - 11.9 FL RBC MORPHOLOGY NORMAL PLT MORPH. NORMAL WBC MORPHOLOGY NORMAL LYMPHOCYTES % 25.3 15.8 - 45.0 % NEUTROPHILS % 60.4 42.1 - 71.9 % MONOCYTES % 9.5 5.7 - 12.5 % EOSINOPHILS 2.8 0.0 - 5.6 % BASOPHILS 1.0 0.0 - 1.3 % ABS. NEUTROPHILS 4.07 1.40 - 6.00 x10'3/uL IMMATURE GRANS % 1.0 (H) 0.0 - 0.5 % ABS. LYMPHOCYTES 1.71 0.80 - 4.70 x10'3/uL COMPREHENSIVE METABOLIC PANEL Result Value Ref Range GLUCOSE 89 70 - 99 MG/DL BUN 20 (H) 7 - 18 MG/DL CREATININE S/P/B 1.18 0.7 - 1.3 MG/DL SODIUM S/P/B 141 136 - 145 MMOL/L POTASSIUM S/P/B 3.7 3.5 - 5.1 MMOL/L CHLORIDE S/P/B 103 100 - 108 MMOL/L CO2 29.4 21 - 32 MMOL/L CALCIUM S/P/B 9.2 8.5 - 10.1 MG/DL BILIRUBIN TOTAL S/P/B 0.5 0.2 - 1.2 MG/DL TOTAL PROTEIN S/P/B 8.0 6.4 - 8.2 G/DL ALBUMIN S/P/B 3.6 3.4 - 5.0 G/DL AST 19 15 - 37 U/L ALT 26 16 - 60 U/L ALKALINE PHOSPHATASE S/P/B 66 50 - 136 U/L ANION GAP 8.6 5 - 15 MMOL/L BUN CREATININE RATIO 16.9 6 - 26 A/G RATIO 0.8 (L) 1.0 - 2.0 RATIO GFR ESTIMATE 75 (L) >90 ML/MIN/1.73 M2 LIPASE Result Value Ref Range LIPASE 56 16 - 77 UNITS/L IMAGING STUDIES No orders to display ED Course / Medical Decision Making Medical Decision Making Preliminary differential diagnosis includes but is not limited to hemorrhoids, anal fissure, lower GI bleed, upper GI bleed, anemia. Patient presents to the emergency department with blood pressure of 160/83, remainder his vital signs are otherwise within normal limits. I discussed the nature of condition with patient I explained him that we can get a CBC to see his hemoglobin for today and so long as his hemoglobin is stable plan to have him follow-up with a postage machine operator in the future to undergo colonoscopy to further elucidate the nature of his bleeding. Patient's hemoglobin is 13.4. He has no leukocytosis. His CMP is unremarkable. His vital signs remained stable during his stay in the emergency department today. Ispoke with patient about the nature of his condition and we agreed to have him see a postage machine operator to further elucidate the nature of his bleeding. He was given return precautions as outlined inhis discharge paperwork. Clinical Impression Hematochezia (Primary) Hemorrhoids Disposition: Discharge Callum Kim MD 05/08/24 0151 HOUSE SHIPPING SUPERVISOR * Daryl Bass RN - 05/08/2024 12:00 AM CST Pt ambulatory to ED with c/o blood in stool x3 today. HOUSE SHIPPING SUPERVISOR documented in this encounter Plan of Treatment Scheduled Referrals Name Type Priority Associated Diagnoses Orde r Schedule Ambulatory referral to Gastroenterology Referral Routine Hematochezia Ordered: 05/08/2024 documented as of this encounter Procedures Procedure Name Priority Date/Time Associated Diagnosis Comments COMPREHENSIVE METABOLIC PANEL STAT 05/08/2024 12:02 AM WAREHOUSE SHIPPING SUPERVISOR CBC W/DIFF AUTOMATED STAT 05/08/2024 12:02 AM WAREHOUSE SHIPPING SUPERVISOR LIPASE STAT 05/08/2024 12:02 AM WAREHOUSE SHIPPING SUPERVISOR documented in this encounter Results * LIPASE (05/08/2024 12:02 AM WAREHOUSE SHIPPING SUPERVISOR) LIPASE 56 16 - 77 UNITS/L 05/08/2024 1:36 AM [facility] 05/08/2024 12:0 2 AM WAREHOUSE SHIPPING SUPERVISOR us Callum Kim MD LABORATORY Final Result [facility] [address] [place] [address], [place] [phone] * (ABNORMAL) COMPREHENSIVE METABOLIC PANEL (05/08/2024 12:02 AM WAREHOUSE SHIPPING SUPERVISOR) Pathologist [facility] [place] GLUCOSE 89 70 - 99 MG/DL 05/08/2024 1:36 AM [facility] BUN 20(H) 7 - 18 MG/DL 05/08/2024 1:36 AM [facility] CREATININE S/P/B 1.18 0.7 - 1.3 MG/DL 05/08/2024 1:36 AM [facility] SODIUM S/P/B 141 136 - 145 MMOL/L 05/08/2024 1:36 AM [facility] POTASSIUM S/P/B 3.7 3.5 - 5.1 MMOL/L 05/08/2024 1:36 AM [facility] CHLORIDE S/P/B 103 100 - 108 MMOL/L 05/08/2024 1:36 AM [facility] CO2 29.4 21 - 32 MMOL/L 05/08/2024 1:36 AM [facility] CALCIUM S/P/B 9.2 8.5 - 10.1 MG/DL 05/08/2024 1:36 AM [facility] BILIRUBIN TOTAL S/P/B 0.5 0.2 - 1.2 MG/DL 05/08/2024 1:36 AM [facility] TOTAL PROTEIN S/P/B 8.0 6.4 - 8.2 G/DL 05/08/2024 1:36 AM [facility] ALBUMIN S/P/B 3.6 3.4 - 5.0 G/DL 05/08/2024 1:36 AM [facility] AST 19 15 - 37 U/L 05/08/2024 1:36 AM [facility] ALT 26 16 - 60 U/L 05/08/2024 1:36 AM [facility] ALKALINE PHOSPHATASE S/P/B 66 50 - 136 U/L 05/08/2024 1:36 AM [facility] ANION GAP 8.6 5 - 15 MMOL/L 05/08/2024 1:36 AM [facility] BUN CREATININE RATIO 16.9 6 - 26 05/08/2024 1:36 AM [facility] A/G RATIO 0.8(L) 1.0 - 2.0 RATIO 05/08/2024 1:36 AM [facility] GFR ESTIMATE 75(L) >90 ML/MIN/1.7 3 M2 05/08/2024 1:36 AM [facility] Comment: NOTE: eGFR is not calculated for patients <18 years of age. This is an estimated GFR calculation using the new CKD EPI creatinine equation without race and so does not require a correction factor for race. This estimated GFR should not be used for calculating drug doses. 05/08/2024 12:0 2 AM WAREHOUSE SHIPPING SUPERVISOR us Callum Kim MD LABORATORY Final Result [facility] [address] [place] [id number], [place] [phone] * (ABNORMAL) CBC W/DIFF AUTOMATED (05/08/2024 12:02 AM WAREHOUSE SHIPPING SUPERVISOR) [facility] Signature WBC 6.75 4.4 - 11.0 x10'3/uL 05/08/2024 1:43 AM [facility] RBC 4.85 4.50 - 5.90 x10'6/uL 05/08/2024 1:43 AM [facility] HGB 13.4(L) 14.0 - 17.5 G/DL 05/08/2024 1:43 AM [facility] HCT 42.6 41.5 - 50.4 % 05/08/2024 1:43 AM [facility] MCV 87.8 80.0 - 96.0 FL 05/08/2024 1:43 AM [facility] MCH 27.6 26.5 - 31.4 PG 05/08/2024 1:43 AM [facility] MCHC 31.5(L) 31.9 - 34.8 G/DL 05/08/2024 1:43 AM [facility] RDW 14.3 12.3 - 14.3 % 05/08/2024 1:43 AM [facility] PLT 277 151 - 353 x10'3/uL 05/08/2024 1:43 AM [facility] MPV 10.6 9.7 - 11.9 FL 05/08/2024 1:43 AM [facility] RBC MORPHOLOGY NORMAL 05/08/2024 1:43 AM [facility] PLT MORPH. NORMAL 05/08/2024 1:43 AM [facility] WBC MORPHOLOGY NORMAL 05/08/2024 1:43 AM [facility] LYMPHOCYTES % 25.3 15.8 - 45.0 % 05/08/2024 1:43 AM WAREHOUSE SHIPPING SUPERVISOR [facility] NEUTROPHILS % 60.4 42.1 - 71.9 % 05/08/2024 1:43 AM WAREHOUSE SHIPPING SUPERVISOR [facility] MONOCYTES % 9.5 5.7 - 12.5 % 05/08/2024 1:43 AM [facility] EOSINOPHILS 2.8 0.0 - 5.6 % 05/08/2024 1:43 AM WAREHOUSE SHIPPING SUPERVISOR [facility] BASOPHILS 1.0 0.0 - 1.3 % 05/08/2024 1:43 AM [facility] ABS. NEUTROPHILS 4.07 1.40 - 6.00 x10'3/uL 05/08/2024 1:43 AM [facility] IMMATURE GRANS % 1.0(H) 0.0 - 0.5 % 05/08/2024 1:43 AM [facility] ABS. LYMPHOCYTES 1.71 0.80 - 4.70 x10'3/uL 05/08/2024 1:43 AM [facility] 05/08/2024 12:0 2 AM WAREHOUSE SHIPPING SUPERVISOR us Callum Kim MD LABORATORY Final Result [facility] [address] [place] [address], documented in this encounter Visit Diagnoses Diagnosis Hematochezia- Primary Blood in stool Hemorrhoids Unspecified hemorrhoids without mention of complication documented in this encounter Care Teams Mergers And Acquisitions Manager Relationship Specialty Start Date End Date None, Provider, PCP - General 02/21/22 [place] [address] [place], [place] [id number] Consulting Physician GASTROENTEROLOGY 05/08/24 5 documented as of this encounter
--- OUTSIDE RECORDS SUMMARY | 2024-05-18 11:34 | XMS_ITS | Encounter Summary ---
Author Organization [facility] Address [address] [place] [address]. [place], [place] [address] [place] [address] Care Team Providers Care Central Supply Nurse Name Role Phone None, Provider Primary Care Provider Unavaila ble Encounter Details Date Type Department Care Team (Latest Contact Info) Description 02/21/2022 Travel Social History Tobacco Use Types Packs/Day Years Used Date Smoking Tobacco: Never Assessed Sex and Gender Information Value Date Recorded Sex Assigned at Not on file Legal Sex Male 2:12 PM CDT Gender Identity Not on file Sexual Orientation Not on file COVID-19 Exposure Response Date Recorded In the last 10 days, have yo u been in contact with someone who was confirmed or suspected to have Coronavirus/COVID-19? No / Unsure 02/21/2022 2:25 PM CDT documented as of this encounter Plan of Treatment Not on file documented as of this encounter Visit Diagnoses Not on filedocumented in this encounter Care Teams Central Supply Nurse Relationship Specialty Start Date End Date None, Provider, PCP - General 02/21/22 documented as of this encounter
--- OUTSIDE RECORDS SUMMARY | 2024-05-18 11:34 | XMS_ITS | Clinical Summary ---
Author Organization [facility] Address [address] [place] [address]. [place] [address] [place] [address] Care Team Providers Care Woods Superintendent Name Role Phone None, Provider Primary Care Provider Yaya Rodriguez MD Unavailable Allergies Active Allergy Reactions Criticality Noted Date Comments Coconut (Cocos Nucifera) Anaphylaxis High 05/08/2024 Medications No known medications Encounters Date Type Department Care Team Description 05/07/2024 11:58 PM SEWER DIGGER - 05/08/2024 2:00 AM SEWER DIGGER Emergency [facility] Emergency Room [address] [place] [address] Callum Kim MD Blood In Stool Discharge Disposition: Home or Self Care (Routine Discharge) 05/07/2024 Travel from Last 3 Months Social History Tobacco Use Types Packs/Day Years Used Date Smoking Tobacco: Never Smokeless Tobacco: Never Tobacco Cessation:Counseling Given: Not Answered Sex and Gender Information Value Date Recorded Sex Assigned at Not on file Legal Sex Male 2:12 PM CDT Gender Identity Not on file Sexual Orientation Not on file Last Filed Vital Signs Vital Sign Reading Time Taken Comments Blood Pressure 160/83 05/08/2024 12:01 AM SEWER DIGGER Pulse 65 05/08/2024 12:01 AM SEWER DIGGER Temperature 36.6 ??C (97.9 ??F) 05/08/2024 12:[address] Respiratory Rate 18 05/08/2024 12:01 AM SEWER DIGGER Oxygen Saturation 98% 05/08/2024 12:01 AM SEWER DIGGER Inhaled Oxygen Concentration - - Weight 74.4 kg (164 lb) 05/08/2024 12:01 AM SEWER DIGGER Height 175.3 cm (5' 9 ) 05/08/2024 12:01 AM SEWER DIGGER Body Mass Index 24.22 05/08/2024 12:01 AM SEWER DIGGER Plan of Treatment Health Maintenance Due Date Last Done Comments Colorectal Cancer Screening Colonoscopy (10 Years) 1972 Annual Physical 11/08/1975 Hepatitis C 1990 DTaP, Tdap and Td Vaccines ( 1 - Tdap) 11/08/1991 Hepatitis B Vaccines (1 of 3 - 19+ 3-dose series) 11/08/1991 Zoster Vaccines (1 of 2) 2022 COVID-19 Vaccine (1 - 2023-2 5 season) 2024 Influenza Adult (#1) 2024 04/29/2015 Meningococcal Vaccine Aged Out No corey elsie eligible based on patient's age to complete this topic Pneumococcal Vaccine: Pediat rics (0 to 5 Years) and At-Risk Patients (6 to 64 Years) Aged Out No longer eligi ble based on patient's age to complete this topic RSV Immunizations Under 20 Months Aged Out No longer eligible based on patient's age to complete this topic Procedures Procedure Name Priority Date/Time Associated Diagnosis Comments LIPASE STAT 05/08/2024 12:02 AM SEWER DIGGER COMPREHENSIVE METABOLIC PANEL STAT 05/08/2024 12:02 AM SEWER DIGGER CBC W/DIFF AUTOMATED STAT 05/08/2024 12:02 AM SEWER DIGGER from Last 3 Months Results * (ABNORMAL) COMPREHENSIVE METABOLIC PANEL (05/08/2024 12:02 AM SEWER DIGGER) GLUCOSE 89 70 - 99 MG/DL 05/08/2024 1:36 AM SEWER DIGGER [facility] BUN 20(H) 7 - 18 MG/DL 05/08/2024 1:36 AM SEWER DIGGER [facility] CREATININE S/P/B 1.18 0.7 - 1.3 MG/DL 05/08/2024 1:36 AM SEWER DIGGER [facility] SODIUM S/P/B 141 136 - 145 MMOL/L 05/08/2024 1:36 AM SEWER DIGGER [facility] POTASSIUM S/P/B 3.7 3.5 - 5.1 MMOL/L 05/08/2024 1:36 AM [facility] CHLORIDE S/P/B 103 100 - 108 MMOL/L 05/08/2024 1:36 AM [facility] CO2 29.4 21 - 32 MMOL/L 05/08/2024 1:36 AM [facility] CALCIUM S/P/B 9.2 8.5 - 10.1 MG/DL 05/08/2024 1:36 AM [facility] BILIRUBIN TOTAL S/P/B 0.5 0.2 - 1.2 MG/DL 05/08/2024 1:36 AM [facility] TOTAL PROTEIN S/P/B 8.0 6.4 - 8.2 G/DL 05/08/2024 1:36 AM [facility] ALBUMIN S/P/B 3.6 3.4 - 5.0 G/DL 05/08/2024 1:36 AM [facility] AST 19 15 - 37 U/L 05/08/2024 1:36 AM [facility] ALT 26 16 - 60 U/L 05/08/2024 1:36 AM [facility] ALKALINE PHOSPHATASE S/P/B 66 50 - 136 U/L 05/08/2024 1:36 AM [facility] ANION GAP 8.6 5 - 15 MMOL/L 05/08/2024 1:36 AM [facility] BUN CREATININE RATIO 16.9 6 - 26 05/08/2024 1:36 AM [facility] A/G RATIO 0.8(L) 1.0 - 2.0 RATIO 05/08/2024 1:36 AM [facility] GFR ESTIMATE 75(L) >90 ML/MIN/1.7 3 M2 05/08/2024 1:36 AM [facility] Comment: NOTE: eGFR is not calculated for patients <18 years of age. This is an estimated GFR calculation using the new CKD EPI creatinine equation without race and so does not require a correction factor for race. This estimated GFR should not be used for calculating drug doses. 05/08/2024 12:0 2 AM SEWER DIGGER us Callum Kim MD LABORATORY Final Result [facility] [address] [place] [address], * (ABNORMAL) CBC W/DIFF AUTOMATED (05/08/2024 12:02 AM SEWER DIGGER) WBC 6.75 4.4 - 11.0 x10'3/uL 05/08/2024 1:43 AM [facility] RBC 4.85 4.50 - 5.90 x10'6/uL 05/08/2024 1:43 AM [facility] HGB 13.4(L) 14.0 - 17.5 G/DL 05/08/2024 1:43 AM [facility] HCT 42.6 41.5 - 50.4 % 05/08/2024 1:43 AM [facility] MCV 87.8 80.0 - 96.0 FL 05/08/2024 1:43 AM [facility] MCH 27.6 26.5 - 31.4 PG 05/08/2024 1:43 AM [facility] MCHC 31.5(L) 31.9 - 34.8 G/DL 05/08/2024 1:43 AM [facility] RDW 14.3 12.3 - 14.3 % 05/08/2024 1:43 AM [facility] PLT 277 151 - 353 x10'3/uL 05/08/2024 1:43 AM [facility] MPV 10.6 9.7 - 11.9 FL 05/08/2024 1:43 AM [facility] RBC MORPHOLOGY NORMAL 05/08/2024 1:43 AM [facility] PLT MORPH. NORMAL 05/08/2024 1:43 AM [facility] WBC MORPHOLOGY NORMAL 05/08/2024 1:43 AM [facility] LYMPHOCYTES % 25.3 15.8 - 45.0 % 05/08/2024 1:43 AM [facility] NEUTROPHILS % 60.4 42.1 - 71.9 % 05/08/2024 1:43 AM [facility] MONOCYTES % 9.5 5.7 - 12.5 % 05/08/2024 1:43 AM [facility] EOSINOPHILS 2.8 0.0 - 5.6 % 05/08/2024 1:43 AM [facility] BASOPHILS 1.0 0.0 - 1.3 % 05/08/2024 1:43 AM [facility] ABS. NEUTROPHILS 4.07 1.40 - 6.00 x10'3/uL 05/08/2024 1:43 AM [facility] IMMATURE GRANS % 1.0(H) 0.0 - 0.5 % 05/08/2024 1:43 AM [facility] ABS. LYMPHOCYTES 1.71 0.80 - 4.70 x10'3/uL 05/08/2024 1:43 AM [facility] 05/08/2024 12:0 2 AM SEWER DIGGER Callum Kim MD LABORATORY Final Result Performing Organization Address City/[facility]/ZIP Co de Phone Number [facility] [address] [place] [address], [place] [phone] * LIPASE (05/08/2024 12:02 AM SEWER DIGGER) LIPASE 56 16 - 77 UNITS/L 05/08/2024 1:36 AM SEWER DIGGER [facility] 05/08/2024 12:0 2 AM SEWER DIGGER Callum Kim MD LABORATORY Final Result Performing Organization Address [facility] Co de Phone Number [facility] [address] [place] [address], [place] [phone] from Last 3 Months Insurance [employer] Care Teams Woods Superintendent Relationship Specialty Start Date End Date None, Provider, PCP - General 02/21/22 [place] [address] [place] [address] Consulting Physician GASTROENTEROLOGY 05/08/24 5
--- NOTE | 2024-05-18 17:19 | PC.NURSE ---
multiple calls between nursing staff and [facility], the xarelto card number that was given to pharm was rejected, after reviewing that information and chart, it appears that the pt had [facility] I called pt and relayed that message and he will call pharmacy and give the correct insurance info
== END 2024-05-18 13:43 | disposition home or self-care (01) | DRG 323 ==
LOC: ANHED 04:05 → ANH2MED 04:21
PROVIDERS: Nurse Practitioner Adult Health; Nurse Practitioner Gerontology; Orthopaedic Surgery; Admitting Provider Internal Medicine; Emergency Provider Student in an Organized Health Care Education/Training Program; Visit Provider Nurse Practitioner Acute Care
PROC: 0SRS01A Replacement of Left Hip Joint, Femoral Surface with Metal Synthetic Substitute, Uncemented, Open Approach (ICD-10-PCS; CPT 27125; principal; 2024-05-14 14:30)
DX: S72.002A Fracture of unspecified part of neck of left femur, initial encounter for closed fracture (principal); W01.0XXA Fall on same level from slipping, tripping and stumbling without subsequent striking against object, initial encounter; S72.012A Unspecified intracapsular fracture of left femur, initial encounter for closed fracture; F10.929 Alcohol use, unspecified with intoxication, unspecified
CPT/HCPCS: 36415; 73502; 73700; 80048; 80053; 82077; 82948; 83735; 85025; 85610; 85730; 86850; 86900; 86901; 96361; 96374; 96375; 97110; 97116; 97161; 97165; 97530; 97535; 99199; 99285; A9270; C1713; C1776; J0171; J0690; J1171; J1650; J1741; J2003; J2704; J3010; J3370; J3411; J3475; J7030; J7120

== ENCOUNTER 2024-05-22 14:25 | Inpatient (IN) | payer OTHER, SELFPAY ==
[2024-05-22] VITALS (25 sets, daily range): BP systolic 101–158; BP diastolic 55–86; PULSE 71–92; RESP 10–20; TEMP 36.6–37.1; O2SAT 98–100; BMI 25.4
--- NOTE | ~2024-05-22 | CT_ITS ---
EXAMINATION: CTA pelvis DATE: 05/22/2024 19:25 INDICATION: Left pelvic pain. TECHNIQUE: Computed tomographic angiography (CTA) of the pelvis was performed without and with 100 mL Omnipaque-350 intravenous contrast. Automated exposure control and iterative reconstruction techniqu e were employed. The dose-length product was 387.66 mGy-cm. Maximum intensity projection 3D-reconstru ctions of the aorta and other arteries were constructed by the technologist on a separate workstation . COMPARISON: Left hip CT 05/22/2024, 05/13/2024 FINDINGS: There are no dilated loops of bowel. There are no pathologically enlarged lymph nodes. Ther e is no free intraperitoneal fluid. There is presacral edema. There is a left inguinal hernia contain ing fat. There is a bipolar left hip hemiarthroplasty in near-anatomic alignment. There is a cable ar ound the proximal left femur. 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 There is 3 mm anterolisthesis of L5 on S1. There is mild lumbar spondylosis. There is a hem atoma involving the left gluteus medius muscle. No active extravasation of contrast. There are skin s taples lateral to left hip. IMPRESSION: 1. Hematoma in left gluteus medius muscle. No pseudoaneurysm. Reviewed, dictated and finalized at location A. ALL INSTALLER
--- NOTE | ~2024-05-22 | US_ITS ---
EXAMINATION: US venous doppler [facility] DATE: 05/23/2024 08:21 INDICATION: Deep venous thrombosis with left lower limb pain and swelling TECHNIQUE: Grayscale ultrasound images without and with compression and Doppler ultrasound images of the left lower extremity veins were obtained. COMPARISON: None. FINDINGS: The visualized portions of left common femoral vein, profunda (deep) femoral vein, femoral vein, popl iteal vein, peroneal veins, posterior tibial veins, gastrocnemius vein and greater saphenous vein out flow are patent. IMPRESSION: 1. No deep venous thrombosis in the left lower limb. Reviewed, dictated and finalized at location B. K TOSSER
--- NOTE | ~2024-05-22 | CT_ITS ---
Clinical indication:Left hip pain post left hip replacement on 05/14/2024 COMPARISON:Preoperative evaluation dated 05/13 2024 TECHNIQUE: Multiple contiguous axial images of the left hip were performed without the administration of intravenous contrast. FINDINGS: The gluteus medius muscle is enlarged and heterogeneous and demonstrates an oblique focus of decrease d attenuation which is deep to a rounded focus of increased attenuation, likely representing blood pr oducts. The largest focus of increased attenuation measures 2.7 x 3.0 cm and is approximately 16 mm d eep to the staple line. The oblique focus of decreased attenuation extends 5 to 6cm posteromedially. The femoral and acetabular components are in good imaging appearance, as are the cerclage wires withi n the femur. IMPRESSION: Findings likely representing resolving hematoma (with persistent blood products) within the gluteus m edius muscle, as detailed above. CTA of the pelvis may be performed to exclude active/continued hemorrhage. Reviewed, dictated and finalized at location A. RUCTOR FLYING IMPRESSION: Findings likely representing resolving hematoma (with persistent blood products ) within the gluteus medius muscle, as detailed above. CTA of the pelvis may be performed to exclude active/continued hemorrhage.
--- NOTE | 2024-05-22 14:45 | ED_ITS ---
HPI - Extremity Injury (Lower) General Chief Complaint: Extremity Injury, Lower Stated Complaint: L hip pain Time Seen by Provider: 05/22/24 14:43 Source: patient History of Present Illness HPI Narrative: 53 YEARS OLD WHITE MALE CAME TO THE ED BY AMBULANCE FROM HOME COMPLAINING OF PAIN AT THE BACK OF THE LEFT HIP. PATIENT IS STATUS POST LEFT HIP SURGERY MAY 13, 2024 PATIENT CURRENTLY ON HYDROCODONE. WITHOUT IMPROVEMENT. PATIENT REPORTED HIS PAIN IS 10/10 AND WOULD LIKE TO BE IN HOSPITALIZED AND WOULD LIKE TO BE IN [place] TO AVOID THIS KIND OF PAIN. HE DENIED ANY TRAUMA SINCE THE SURGERY. PATIENT INSURANCE DOES NOT SUPPORTIVE PHYSICAL THERAPY. Related Data Allergies Allergy/AdvReac Type Severity Reaction Status Date / Time coconut Allergy Severe Dyspnea / Verified 05/22/24 17:17 SOB Review of Systems 2 Review of Systems: All systems reviewed & are unremarkable except as noted in HPI and below PMFSH Family History Family History Other Cancer Heart disease Lung cancer Social History Social History Smoking status: Never smoker Alcohol intake: current Drinks per week: 24 Substance use type: marijuana Do You Feel Safe in your Home?: Yes Lack of Transportation: No Lack of Food: Never True Current Housing: I Have Housing Concerned About Future Housing: No Difficulty Paying Gas/Electric Bills: No Difficulty Paying for Meds: No Currently Unemployed: YES Education: High School Diploma/GED Difficulty w/ Childcare or Family Care: No Spiritual care concerns: No Exam 2 Narrative: GENERAL APPEARANCE: WELL-DEVELOPED, WELL-NOURISHED SKIN: NORMAL COLOR HEAD: NORMOCEPHALIC, NONTRAUMATIC CHEST AND RESPIRATORY: AIRWAY PATENT, NO RESPIRATORY DISTRESS, NO ACCESSORY MUSCLE USE HEART: REGULAR RATE/RHYTHM ABDOMEN: SOFT, NONTENDER, NO ORGANOMEGALY, QUIET BOWEL SOUNDS VASCULAR: NORMAL PERIPHERAL PULSES, NORMAL CAPILLARY REFILL. MUSCULOSKELETAL: SEVERE LIMITED RANGE OF MOTION OF THE LEFT HIP BECAUSE OF PAIN, LEFT HIP EXAM SHOWED DIFFUSE TENDERNESS POSTERIORLY AND LATERALLY, SURGICAL WOUND IS CLEAN AND DRY. LEFT LOWER LEG IS MORE SWOLLEN COMPARED TO THE RIGHT 1. NEUROLOGIC: ALERT AND ORIENTED ?3, DOCTOR OF AUDIOLOGY IS NORMAL TESTED, NO GROSS MOTOR DEFICIT Course Consultations Consultation #1: DR DRAPER CONSULT DR. MALAVE IN A.M. Date: 05/22/24 Time: 20:30 Vital Signs Vital signs: Vital Signs Temperature 36.8 C 05/22/24 14:25 Pulse Rate 79 05/22/24 14:25 Respiratory Rate 16 05/22/24 14:25 Blood Pressure 132/74 05/22/24 14:25 Pulse Oximetry 100 05/22/24 14:25 Oxygen Delivery Room Air 05/22/24 14:25 Temperature 37.0 C 05/22/24 19:41 Pulse Rate 81 05/22/24 20:06 Respiratory Rate 18 05/22/24 20:06 Blood Pressure 123/67 05/22/24 20:06 Pulse Oximetry 100 05/22/24 20:06 Oxygen Delivery Room Air 05/22/24 14:25 MDM - Extremity Injury (Lower) MDM Narrative Medical decision making narrative: PATIENT CAME TO THE HOSPITAL WITH INCREASED PAIN AT THE LEFT HIP AREA STATUS POST SURGERY MAY [address] MALAVE PATIENT CURRENTLY ON HYDROCODONE WITHOUT SIGNIFICANT IMPROVEMENT PATIENT WAS DISCHARGED FROM THE HOSPITAL ON X[place], COULD NOT REFILL THE PRESCRIPTION, BEEN TAKING ASPIRIN INSTEAD. PATIENT DENIES ANY RECENT TRAUMA AFTER THE SURGERY. VITAL SIGNS ARE STABLE PHYSICAL EXAMINATION SHOWING DIFFUSE TENDERNESS LEFT HIP POSTERIORLY AND LATERALLY, SEVERE TENDERNESS OF THE LEFT BUTTOCK DIFFERENTIAL DIAGNOSIS INCLUDE POST SURGERY PAIN, POST SURGERY HEMATOMA. BLOOD WORKUP TODAY INCLUDES CBC AND CMP SHOWED HEMOGLOBIN OF 5.9 CT LEFT HIP AND CTA PELVIS SHOWED HEMATOMA LEFT GLUTEUS, 2 UNITS OF BLOOD ORDERED, ADMIT TO HOSPITALIST DISCUSSED WITH DR. DRAPER Medical Records Attestation: I reviewed the patient's medical records. Lab Data Attestation: I reviewed the patient's lab results. 05/22/24 16:49 05/22/24 16:49 Labs: Lab Results 05/22/24 05/22/24 Range/Units 16:49 17:56 WBC 11.7 H (4.5-10.0) K/mm3 RBC 2.21 L (4.6-6.20) M/mm3 Hgb 5.9 L* (14.0-18.0) g/dL Hct 18.9 L* (42.0-52.0) % MCV 85.5 (80-100) fl MCH 26.7 (26-34) pg MCHC 31.2 L (32-36) g/dl RDW 14.5 (11.5-14.5) % Plt Count 634 H D (150-375) k/mm3 MPV 9.5 (7.4-10.4) fl Immature Gran % (Auto) 0.9 H (0-0.5) % Neut % (Auto) 82.5 H (45.5-73.1) % Lymph % (Auto) 8.0 L (18.3-44.2) % Finney % (Auto) 7.6 (2.6-8.5) % Eos % (Auto) 0.5 (0-4.4) % Baso % (Auto) 0.5 (0.2-1.2) % Lymph # (Auto) 0.94 (0.9-3.2) K/mm3 Finney # (Auto) 0.9 H (0.1-0.6) K/mm3 Eos # (Auto) 0.1 (0-0.3) K/mm3 Baso # (Auto) 0.1 (0.0-0.1) K/mm3 Abs Immat Gran (auto) 0.11 H (0.00-0.031) K/mm3 Absolute Neuts (auto) 9.6 H (1.3-6.7) K/mm3 Absolute Nucleated RBC 0.000 (0.0-0.012) K/mm3 Nucleated RBC % 0.0 (0.0-0.2) % Platelet Estimate Increased (Adequate) Hypochromasia 1+ Schistocytes None seen Sodium 133 L (137-145) mmol/L Potassium 4.3 (3.4-5.0) mmol/L Chloride 101 (98-107) mmol/L Carbon Dioxide 30 (22-30) mmol/L Anion Gap 2 L (4-12) mmol/L BUN 19 (9-20) mg/dL Creatinine 0.90 (0.7-1.3) mg/dL Estim Creat Clear Calc 85 ml/min Estimated GFR > 60 (59 - ) Glucose 114 H (65-110) mg/dL Calcium 8.7 (8.4-10.2) mg/dL Total Bilirubin 1.0 (0.2-1.3) mg/dL AST 37 (17-59) U/L ALT 26 (6-50) U/L Alkaline Phosphatase 62 (38-126) U/L Total Protein 7.0 (6.3-8.2) g/dL Albumin 3.4 L (3.5-5.1) g/dL Blood Type A Negative Antibody Screen Negative Crossmatch See Detail Imaging Data My impression: Impressions Hip CT 05/22/24 15:28 IMPRESSION: Findings likely representing resolving hematoma (with persistent blood products) within the gluteus medius muscle, as detailed above. CTA of the pelvis may be performed to exclude active/continued hemorrhage. Pelvis CTA 05/22/24 19:31 IMPRESSION: 1. Hematoma in left gluteus medius muscle. No pseudoaneurysm. Radiologist's impression: Impressions Hip CT 05/22/24 15:28 IMPRESSION: Findings likely representing resolving hematoma (with persistent blood products) within the gluteus medius muscle, as detailed above. CTA of the pelvis may be performed to exclude active/continued hemorrhage. Critical Care Time Critical Care Time Critical Care Time: Yes Total Critical Care Time: 30 Discharge Plan Discharge Clinical Impression: Hematoma, Anemia, Aftercare following left hip joint replacement surgery Patient Disposition: Still a Patient Condition: Stable Additional Instructions: ADMIT TO HOSPITALIST Patient Language: Albanian Prescriptions: No Action hydrocodone-acetaminophen 7.5-325 mg tablet 1 tablet PO Q4H PRN (Reason: pain) Qty: 40 0RF doxycycline hyclate 100 mg capsule 100 mg PO Q12H 5 Days Qty: 10 0RF celecoxib [Celebrex] 200 mg Capsule 200 mg PO DAILY@0800 Qty: 30 0RF Xarelto 10 mg tablet 10 mg PO DAILY Qty: 14 0RF Follow-up/Referrals: UNKNOWN,DOCTOR [Primary Care Provider] -
[2024-05-22] MEDS: ONDANSETRON INJ 4 MG/2 ML VIAL IV PUSH (14:49)
[2024-05-22] MEDS: HYDROmorphone HCL INJ (*CRX) 1 MG/ML SYR 0.5 MG IV PUSH (14:49)
[2024-05-22 17:31] LABS: Basophils Absolute Auto 0.1 K/mm3 (0.0-0.1); Basophils Percent Auto 0.5 % (0.2-1.2); Eosinophils Absolute Auto 0.1 K/mm3 (0-0.3); Eosinophils Percent Auto 0.5 % (0-4.4); Immature Granulocyte Absolute 0.11 K/mm3 (0.00-0.031); Immature Granulocyte Percent A 0.9 % (0-0.5); Lymphocytes Absolute Auto 0.94 K/mm3 (0.9-3.2); Mean Corpuscular HGB Conc 31.2 g/dl (32-36); Mean Corpuscular Hemoglobin 26.7 pg (26-34); Mean Corpuscular Volume 85.5 fl (80-100); Mean Platelet Volume 9.5 fl (7.4-10.4); Monocytes Absolute Auto 0.9 K/mm3 (0.1-0.6); Monocytes Percent Auto 7.6 % (2.6-8.5); Neutrophils Absolute Auto 9.6 K/mm3 (1.3-6.7); Neutrophils Percent Auto 82.5 % (45.5-73.1); Platelet Count Result 634 k/mm3 (150-375); Red Blood Count 2.21 M/mm3 (4.6-6.20); Red Cell Distribution Width 14.5 % (11.5-14.5); White Blood Count 11.7 K/mm3 (4.5-10.0)
[2024-05-22 17:37] LABS: Hematocrit 18.9 % (42.0-52.0); Hemoglobin 5.9 g/dL (14.0-18.0)
[2024-05-22] MEDS: SODIUM CHLORIDE 0.9% IV 250 ML 30 ML IV CONT (17:45)
[2024-05-22 17:49] LABS: Hypochromasia 1+; Platelet Estimate Increased (Adequate); Schistocytes None Seen
[2024-05-22 17:52] LABS: Alanine Aminotransferase 26 U/L (6-50); Albumin Level 3.4 g/dL (3.5-5.1); Alkaline Phosphatase 62 U/L (38-126); Anion Gap 2 mmol/L (4-12); Aspartate Amino Transferase 37 U/L (17-59); Blood Urea Nitrogen 19 mg/dL (9-20); Calcium 8.7 mg/dL (8.4-10.2); Carbon Dioxide 30 mmol/L (22-30); Chloride 101 mmol/L (98-107); Estimated CRCL calculation 85 ml/min; Estimated Glomerular Filt Rate > 60; Glucose 114 mg/dL (65-110); Potassium 4.3 mmol/L (3.4-5.0); Sodium 133 mmol/L (137-145)
--- NOTE | 2024-05-22 21:35 | ADMGEN ---
This patient, Rao Quevedo, was admitted to [facility] Surg Room 331-02. Patient/family oriented to hospital policies and general routines including ID bracelet, bed and alarms, visiting hours, pain management, procedures, bathroom and other care routines, personal items, smoking policy, room service/diet, and visiting hours. Information on how to activate the Rapid Response Team has been discussed. Patient/Family are encouraged to report perceived risks to care and to ask questions if they do not understand what they are told or what they should do.
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
[2024-05-23] MEDS: MORPHINE SULFATE (*CRX) 2 MG/ML INJ 4 MG IV PUSH (00:18)
[2024-05-23 00:24] VITALS: BP 128/71; PULSE 78; RESP 16; TEMP 37.2; O2SAT 99
[2024-05-23] MEDS: SODIUM CHLORIDE 0.9% IV 250 ML 30 ML (01:09)
[2024-05-23 02:04] LABS: Hematocrit 24.7 % (42.0-52.0)
[2024-05-23 05:56] VITALS: BP 125/63; PULSE 77; RESP 16; TEMP 36.4; O2SAT 99
--- NOTE | 2024-05-23 06:54 | PM.CNOR ---
Assessment and Plan Assessment and plan (1) Closed subcapital fracture of femur: Code(s): S72.019A - Unspecified intracapsular fracture of unspecified femur, initial encounter for closed fracture Status: Acute Assessment and Plan: Patient underwent Bipolar for hip FX. Has post op bleeding with drop in Hemoglobin. Will follow. Stop anticoagulation. History of Present Illness HPI Consult date: 05/23/24 Chief complaint: Status Post Left Hip Surgery/Left Gluteus Hematoma Review of Systems Review of Systems: All systems reviewed & are unremarkable except as noted in HPI and below [facility] Surgical History Surgical History (Updated 05/22/24 @ 21:58 by Brigette Trevino PA-C) History of partial replacement of left hip joint using bipolar prosthesis (04/2024) repair of left subcapital hip fracture Family History Family History Mother Diabetes mellitus Grandparent Diabetes mellitus Father Cancer Other Heart disease Social History Social History (Updated 05/23/24 @ 01:48 by Kayla Ramirez MD) Social History: Surrogate medical decision maker: Wendy Mi, mother. Code status: Full code. Smoking status: Never smoker Drinks per week: 24 Alcohol use details: social Substance use type: marijuana Do You Feel Safe in your Home?: Yes Lack of Transportation: No Lack of Food: Never True Current Housing: I Have Housing Concerned About Future Housing: No Difficulty Paying Gas/Electric Bills: No Difficulty Paying for Meds: No Currently Unemployed: YES Education: High School Diploma/GED Difficulty w/ Childcare or Family Care: No Spiritual care concerns: No Meds Home Medications and Allergies Home Medications ?Medication ?Instructions ?Recorded ?Confirmed ?Type hydrocodone 7.5 mg-acetaminophen 1 tablet PO Q4H PRN pain #40 tabs 05/16/24 05/22/24 Rx 325 mg tablet celecoxib 200 mg capsule (Celebrex) 200 mg PO DAILY@0800 #30 caps 05/18/24 05/22/24 Rx doxycycline hyclate 100 mg capsule 100 mg PO Q12H 5 days #10 caps 05/18/24 05/22/24 Rx rivaroxaban 10 mg tablet (Xarelto) 10 mg PO DAILY #14 tabs 05/20/24 05/22/24 Rx aspirin 81 mg tablet,delayed 81 mg PO DAILY anticoagulation 05/22/24 05/22/24 History release (Adult Aspirin Regimen) Allergies Allergy/AdvReac Type Severity Reaction Status Date / Time coconut Allergy Severe Dyspnea / Verified 05/22/24 17:17 SOB Vital Signs Vital Signs - 24 hr 05/22/24 14:25 05/22/24 14:46 05/22/24 15:01 Temperature 98.3 F Pulse Rate 79 79 78 Respiratory Rate 16 18 20 Blood Pressure 132/74 152/76 H 158/71 H Pulse Oximetry 100 98 100 Oxygen Delivery Room Air 05/22/24 15:27 05/22/24 16:16 05/22/24 16:25 Temperature Pulse Rate 78 80 86 Respiratory Rate 18 18 18 Blood Pressure 148/84 H 140/86 140/86 Pulse Oximetry 99 100 100 Oxygen Delivery 05/22/24 17:16 05/22/24 17:46 05/22/24 18:32 Temperature Pulse Rate 81 78 80 Respiratory Rate 18 20 18 Blood Pressure 131/72 124/71 132/56 L Pulse Oximetry 98 99 100 Oxygen Delivery 05/22/24 19:29 05/22/24 19:30 05/22/24 19:36 Temperature 98.6 F 98.6 F 98.4 F Pulse Rate 83 82 87 Respiratory Rate 15 13 16 Blood Pressure 146/77 H 131/62 145/55 H Pulse Oximetry 99 100 100 Oxygen Delivery 05/22/24 19:41 05/22/24 19:48 05/22/24 19:51 Temperature 98.6 F Pulse Rate 81 87 77 Respiratory Rate 15 18 17 Blood Pressure 149/73 H 102/64 115/66 Pulse Oximetry 100 100 100 Oxygen Delivery 05/22/24 19:56 05/22/24 20:01 05/22/24 20:06 Temperature Pulse Rate 75 73 81 Respiratory Rate 10 L 17 18 Blood Pressure 134/62 143/70 H 123/67 Pulse Oximetry 99 99 100 Oxygen Delivery 05/22/24 20:11 05/22/24 20:31 05/22/24 21:01 Temperature Pulse Rate 71 87 92 Respiratory Rate 13 20 14 Blood Pressure 123/63 130/81 129/74 Pulse Oximetry 100 100 100 Oxygen Delivery 05/22/24 21:39 05/22/24 22:34 05/22/24 22:56 Temperature 98.8 F 98.5 F 98.5 F Pulse Rate 90 87 80 Respiratory Rate 16 16 20 Blood Pressure 127/59 L 129/58 L 123/64 Pulse Oximetry 100 99 99 Oxygen Delivery 05/22/24 23:56 05/23/24 00:24 05/23/24 05:56 Temperature 97.9 F 99 F 97.6 F Pulse Rate 86 78 77 Respiratory Rate 16 16 16 Blood Pressure 101/62 128/71 125/63 Pulse Oximetry 99 99 99 Oxygen Delivery Exam Narrative: Dressing and wound intact. NVI Results Labs 05/23/24 01:40 05/22/24 16:49 Labs: Abnormal lab results 05/22/24 05/22/24 05/23/24 Range/Units 16:49 17:56 01:40 WBC 11.7 H (4.5-10.0) K/mm3 RBC 2.21 L (4.6-6.20) M/mm3 Hgb 5.9 L* 8.0 L (14.0-18.0) g/dL Hct 18.9 L* 24.7 L (42.0-52.0) % MCHC 31.2 L (32-36) g/dl Plt Count 634 H D (150-375) k/mm3 Immature Gran % (Auto) 0.9 H (0-0.5) % Neut % (Auto) 82.5 H (45.5-73.1) % Lymph % (Auto) 8.0 L (18.3-44.2) % [place] # (Auto) 0.9 H (0.1-0.6) K/mm3 Abs Immat Gran (auto) 0.11 H (0.00-0.031) K/mm3 Absolute Neuts (auto) 9.6 H (1.3-6.7) K/mm3 Sodium 133 L (137-145) mmol/L Anion Gap 2 L (4-12) mmol/L Glucose 114 H (65-110) mg/dL Albumin 3.4 L (3.5-5.1) g/dL Crossmatch See Detail H & H 05/22/24 05/23/24 Range/Units 16:49 01:40 Hgb 5.9 L* 8.0 L (14.0-18.0) g/dL Hct 18.9 L* 24.7 L (42.0-52.0) % All other labs normal.
[2024-05-23] MEDS: DOXYCYCLINE HYCLATE 100 MG TABLET PO ×2 (08:47→22:12)
[2024-05-23] MEDS: CELECOXIB 200 MG CAPSULE PO (08:47)
[2024-05-23 08:56] LABS: Hematocrit 25.3 % (42.0-52.0); Hemoglobin 8.3 g/dL (14.0-18.0); Mean Corpuscular HGB Conc 32.8 g/dl (32-36); Mean Corpuscular Hemoglobin 28.5 pg (26-34); Mean Corpuscular Volume 86.9 fl (80-100); Mean Platelet Volume 9.1 fl (7.4-10.4); Platelet Count Result 674 k/mm3 (150-375); Red Blood Count 2.91 M/mm3 (4.6-6.20); Red Cell Distribution Width 14.6 % (11.5-14.5); White Blood Count 10.6 K/mm3 (4.5-10.0)
[2024-05-23 09:12] LABS: Anion Gap 2 mmol/L (4-12); Blood Urea Nitrogen 13 mg/dL (9-20); Calcium 8.7 mg/dL (8.4-10.2); Carbon Dioxide 29 mmol/L (22-30); Chloride 101 mmol/L (98-107); Estimated CRCL calculation 95 ml/min; Estimated Glomerular Filt Rate > 60; Glucose 102 mg/dL (65-110); Potassium 4.2 mmol/L (3.4-5.0); Sodium 132 mmol/L (137-145)
[2024-05-23 14:00] VITALS: BP 120/60; PULSE 77; RESP 16; TEMP 36.5; O2SAT 99
--- NOTE | 2024-05-23 15:00 | PM.IMPN ---
Progress Note: A&P Assessment and Plan (1) Hematoma following procedure: Status: Acute Assessment and Plan: CT Hip: Findings likely representing resolving hematoma (with persistent blood products) within the gluteus medius muscle. - s/p 4 units PRBC's transfusion. - Resolving per CT hip. - Continue to monitor H/H closely. - No anticoagulation. - Ortho following. (2) Acute blood loss anemia: Code(s): D62 - Acute posthemorrhagic anemia Status: Acute Assessment and Plan: - Likely related to above. - s/p 4 units PRBC's transfusion. - Continue to monitor H/H closely. (3) Hematoma: Code(s): T14.8XXA - Other injury of unspecified body region, initial encounter Status: Acute Assessment and Plan: - Related to # 1. - Mgt as # 1 above. Plan Continue to monitor H/H closely. Time Spent With Patient Time with patient: 15 - 25 minutes Subjective Date/time seen: 05/23/24 11:00 Patient states he feels much better than yesterday. States pain is much improved and almost resolved. Interval history: Patient calm on bedrest and looks to be in no acute distress. Review of Systems Review of Systems: Left buttock and hip pain All systems reviewed & are unremarkable except as noted in HPI and below Exam Narrative: General: Well appearing, no acute distress. HEENT: Atraumatic, PERRL, EOM, anicteric, moist mucosa. NECK: Supple. Lungs: Clear bilaterally. Heart: RRR, no murmurs. Abdomen: Soft, non-tender, non-distended, +ve bowel sounds X4 quadrants. Extremities: Moderate swelling to left buttocks and upper thigh region. Skin: Warm and dry, no lesions. Neuro: Well oriented, CN II-XII grossly intact. Psych: Pleasant and co-operative. Objective Data Vital Signs Vital Signs: Vital Signs - 24 hr 05/22/24 15:01 05/22/24 15:27 05/22/24 16:16 Temperature Pulse Rate 78 78 80 Respiratory Rate 20 18 18 Blood Pressure 158/71 H 148/84 H 140/86 Pulse Oximetry 100 99 100 05/22/24 16:25 05/22/24 17:16 05/22/24 17:46 Temperature Pulse Rate 86 81 78 Respiratory Rate 18 18 20 Blood Pressure 140/86 131/72 124/71 Pulse Oximetry 100 98 99 05/22/24 18:32 05/22/24 19:29 05/22/24 19:30 Temperature 98.6 F 98.6 F Pulse Rate 80 83 82 Respiratory Rate 18 15 13 Blood Pressure 132/56 L 146/77 H 131/62 Pulse Oximetry 100 99 100 05/22/24 19:36 05/22/24 19:41 05/22/24 19:48 Temperature 98.4 F 98.6 F Pulse Rate 87 81 87 Respiratory Rate 16 15 18 Blood Pressure 145/55 H 149/73 H 102/64 Pulse Oximetry 100 100 100 05/22/24 19:51 05/22/24 19:56 05/22/24 20:01 Temperature Pulse Rate 77 75 73 Respiratory Rate 17 10 L 17 Blood Pressure 115/66 134/62 143/70 H Pulse Oximetry 100 99 99 05/22/24 20:06 05/22/24 20:11 05/22/24 20:31 Temperature Pulse Rate 81 71 87 Respiratory Rate 18 13 20 Blood Pressure 123/67 123/63 130/81 Pulse Oximetry 100 100 100 05/22/24 21:01 05/22/24 21:39 05/22/24 22:34 Temperature 98.8 F 98.5 F Pulse Rate 92 90 87 Respiratory Rate 14 16 16 Blood Pressure 129/74 127/59 L 129/58 L Pulse Oximetry 100 100 99 05/22/24 22:56 05/22/24 23:56 05/23/24 00:24 Temperature 98.5 F 97.9 F 99 F Pulse Rate 80 86 78 Respiratory Rate 20 16 16 Blood Pressure 123/64 101/62 128/71 Pulse Oximetry 99 99 99 05/23/24 05:56 Temperature 97.6 F Pulse Rate 77 Respiratory Rate 16 Blood Pressure 125/63 Pulse Oximetry 99 Intake/Output Intake/Output: Intake & Output 05/20/24 05/21/24 05/22/24 05/23/24 23:59 23:59 23:59 23:59 Intake Total 350 1070 Output Total 350 650 Balance 0 420 Meds/Results Medications: Active Medications Generic Name Dose Route Start Last Admin Trade Name Freq PRN Reason Stop Dose Admin Acetaminophen 1,000 mg 05/23/24 01:46 Acetaminophen 500 Mg Tablet PO Q6H PRN Mild Pain (1-3) or Fever Hydrocodone Bitart/Acetaminophen 1 tab 05/23/24 01:46 Hydrocodone/Acetaminophen (*Crx) 7.5-325 Mg Tablet PO Q4H PRN pain 4-6 Celecoxib 200 mg 05/23/24 08:00 05/23/24 08:47 Celecoxib 200 Mg Capsule PO 200 mg DAILY@0800 TAYLOR Administration Doxycycline Hyclate 100 mg 05/23/24 09:00 05/23/24 08:47 Doxycycline Hyclate 100 Mg Tablet PO 05/23/24 21:01 100 mg Q12HR TAYLOR Administration Hydromorphone HCl 1 mg 05/23/24 01:46 Hydromorphone Hcl Inj (*Crx) 1 Mg/Ml Syr IV PUSH Q3H PRN Pain Rated 7-10 Morphine Sulfate 4 mg 05/22/24 22:02 05/23/24 00:18 Morphine Sulfate (*Crx) 2 Mg/Ml Inj IV PUSH 4 mg Q4H PRN Administration Pain Rated 7-10 Ondansetron HCl 4 mg 05/22/24 20:12 Ondansetron Inj 4 Mg/2 Ml Vial IV PUSH Q4H PRN Nausea Polyethylene Glycol 17 gm 05/23/24 01:46 Polyethylene Glycol 3350 17 Gm Powd.Pack PO QAM PRN Constipation Radiology Results: ITS Impressions Hip CT 05/22/24 15:28 IMPRESSION: Findings likely representing resolving hematoma (with persistent blood products) within the gluteus medius muscle, as detailed above. CTA of the pelvis may be performed to exclude active/continued hemorrhage. Pelvis CTA 05/22/24 19:31 IMPRESSION: 1. Hematoma in left gluteus medius muscle. No pseudoaneurysm. Venous Doppler Study 05/23/24 08:26 IMPRESSION: 1. No deep venous thrombosis in the left lower limb. Labs Labs: Laboratory Results - last 24 hr 05/22/24 05/22/24 05/23/24 16:49 17:56 01:40 WBC 11.7 H RBC 2.21 L Hgb 5.9 L* 8.0 L Hct 18.9 L* 24.7 L MCV 85.5 MCH 26.7 MCHC 31.2 L RDW 14.5 Plt Count 634 H D MPV 9.5 Immature Gran % (Auto) 0.9 H Neut % (Auto) 82.5 H Lymph % (Auto) 8.0 L [place] % (Auto) 7.6 Eos % (Auto) 0.5 Baso % (Auto) 0.5 Lymph # (Auto) 0.94 [place] # (Auto) 0.9 H Eos # (Auto) 0.1 Baso # (Auto) 0.1 Abs Immat Gran (auto) 0.11 H Absolute Neuts (auto) 9.6 H Absolute Nucleated RBC 0.000 Nucleated RBC % 0.0 Platelet Estimate Increased Hypochromasia 1+ Schistocytes None seen Sodium 133 L Potassium 4.3 Chloride 101 Carbon Dioxide 30 Anion Gap 2 L BUN 19 Creatinine 0.90 Estim Creat Clear Calc 85 Estimated GFR > 60 Glucose 114 H Calcium 8.7 Magnesium Total Bilirubin 1.0 AST 37 ALT 26 Alkaline Phosphatase 62 Total Protein 7.0 Albumin 3.4 L Blood Type A Negative Antibody Screen Negative Crossmatch See Detail 05/23/24 08:30 WBC 10.6 H RBC 2.91 L Hgb 8.3 L Hct 25.3 L MCV 86.9 MCH 28.5 D MCHC 32.8 RDW 14.6 H Plt Count 674 H MPV 9.1 Immature Gran % (Auto) Neut % (Auto) Lymph % (Auto) [place] % (Auto) Eos % (Auto) Baso % (Auto) Lymph # (Auto) [place] # (Auto) Eos # (Auto) Baso # (Auto) Abs Immat Gran (auto) Absolute Neuts (auto) Absolute Nucleated RBC Nucleated RBC % Platelet Estimate Hypochromasia Schistocytes Sodium 132 L Potassium 4.2 Chloride 101 Carbon Dioxide 29 Anion Gap 2 L BUN 13 D Creatinine 0.80 Estim Creat Clear Calc 95 Estimated GFR > 60 Glucose 102 Calcium 8.7 Magnesium 2.0 Total Bilirubin AST ALT Alkaline Phosphatase Total Protein Albumin Blood Type Antibody Screen Crossmatch Quality VTE Prophylaxis VTE prophylaxis: mechanical ordered Hospitalist MIPS Advance Care Plan I have confirmed that the patient's Advanced Care Plan is present, code status is documented, or surrogate decision maker is listed in patient medical record.: Yes Medication Reconciliation I have utilized all available resources to obtain, update and review the patients current medications (includes all prescriptions, OTC, herbals, cannabis, and nutritional supplements).: Yes
[2024-05-23] MEDS: HYDROcodone/acetaminophen (*CRX) 7.5-325 MG TABLET 1 TAB PO (17:12)
[2024-05-23 21:46] VITALS: BP 112/69; PULSE 68; RESP 16; TEMP 36.2; O2SAT 98
[2024-05-23] MEDS: ACETAMINOPHEN 500 MG TABLET 1000 MG PO (22:16)
[2024-05-24 05:56] VITALS: BP 120/63; PULSE 71; RESP 16; TEMP 36.2; O2SAT 99
[2024-05-24] MEDS: CELECOXIB 200 MG CAPSULE PO (07:59)
[2024-05-24 10:42] LABS: Hematocrit 26.6 % (42.0-52.0); Hemoglobin 8.6 g/dL (14.0-18.0)
[2024-05-24] MEDS: ACETAMINOPHEN 500 MG TABLET 1000 MG PO (13:49)
[2024-05-24 13:52] VITALS: BP 138/68; PULSE 82; RESP 18; TEMP 36.9; O2SAT 99
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
--- OUTSIDE RECORDS SUMMARY | 2024-05-29 18:05 | XMS_ITS | Clinical Summary ---
Author Organization [facility] Address [address] [place] [address]. [place] [address] [place] [address] Care Team Providers Care Citrix Administrator Name Role Phone None, Provider Primary Care Provider Yaya Rodriguez MD Unavailable Allergies Active Allergy Reactions Criticality Noted Date Comments Coconut (Cocos Nucifera) Anaphylaxis High 05/08/2024 Medications No known medications Encounters Date Type Department Care Team Description 05/07/2024 11:58 PM EXCELSIOR PICKER - 05/08/2024 2:00 AM EXCELSIOR PICK[facility] Emergency [facility] Emergency Room [address] [place] [address] Callum Kim MD Blood In Stool Discharge [...] Comments Blood Pressure 160/83 05/08/2024 12:01 AM EXCELSIOR PICKER Pulse 65 05/08/2024 12:01 AM EXCELSIOR PICKER Temperature 36.6 ??C (97.9 ??F) 05/08/2024 12:[address] Respiratory Rate 18 05/08/2024 12:01 AM EXCELSIOR PICKER Oxygen Saturation 98% 05/08/2024 12:01 AM EXCELSIOR PICKER Inhaled Oxygen Concentration - - Weight 74.4 kg (164 lb) 05/08/2024 12:01 AM EXCELSIOR PICKER Height 175.3 cm (5' 9 ) 05/08/2024 12:01 AM EXCELSIOR PICKER Body Mass Index 24.22 05/08/2024 12:01 AM EXCELSIOR PICKER Plan of Treatment Health Maintenance Due Date [...] Diagnosis Comments LIPASE STAT 05/08/2024 12:02 AM EXCELSIOR PICKER COMPREHENSIVE METABOLIC PANEL STAT 05/08/2024 12:02 AM EXCELSIOR PICKER CBC W/DIFF AUTOMATED STAT 05/08/2024 12:02 AM EXCELSIOR PICKER from Last 3 Months Results * (ABNORMAL) COMPREHENSIVE METABOLIC PANEL (05/08/2024 12:02 AM EXCELSIOR PICKER) GLUCOSE 89 70 - 99 MG/DL 05/08/2024 1:36 AM EXCELSIOR PICKER [facility] BUN 20(H) 7 - 18 MG/DL 05/08/2024 1:36 AM EXCELSIOR PICKER [facility] CREATININE S/P/B 1.18 0.7 - 1.3 MG/DL 05/08/2024 1:36 AM EXCELSIOR PICKER [facility] SODIUM S/P/B 141 136 - 145 MMOL/L 05/08/2024 1:36 AM EXCELSIOR PICKER [facility] POTASSIUM S/P/B 3.7 3.5 - 5.1 MMOL/L 05/08/2024 1:36 AM [facility] CHLORIDE S/P/B 103 100 - 108 MMOL/L 05/08/2024 1:36 AM [facility] CO2 29.4 21 - 32 MMOL/L 05/08/2024 1:36 AM [facility] CALCIUM S/P/B 9.2 8.5 - 10.1 MG/DL 05/08/2024 1:36 AM [facility] BILIRUBIN TOTAL S/P/B 0.5 0.2 - 1.2 MG/DL 05/08/2024 1:36 AM [facility] TOTAL PROTEIN S/P/B 8.0 6.4 - 8.2 G/DL 05/08/2024 1:36 AM [facility] ALBUMIN S/P/B 3.6 3.4 - 5.0 G/DL 05/08/2024 1:36 AM [facility] AST 19 15 - 37 U/L 05/08/2024 1:36 AM [facility] ALT 26 16 - 60 U/L 05/08/2024 1:36 AM [facility] ALKALINE PHOSPHATASE S/P/B 66 50 - 136 U/L 05/08/2024 1:36 AM [facility] ANION GAP 8.6 5 - 15 MMOL/L 05/08/2024 1:36 AM [facility] BUN CREATININE RATIO 16.9 6 - 26 05/08/2024 1:36 AM [facility] A/G RATIO 0.8(L) 1.0 - 2.0 RATIO 05/08/2024 1:36 AM [facility] GFR ESTIMATE 75(L) >90 ML/MIN/1.7 3 M2 05/08/2024 1:36 AM [facility] Comment: NOTE: eGFR is not calculated for patients <18 years of age. This is an estimated GFR calculation using the new CKD EPI creatinine equation without race and so does not require a correction factor for race. This estimated GFR should not be used for calculating drug doses. 05/08/2024 12:0 2 AM EXCELSIOR PICKER us Callum Kim MD LABORATORY Final Result [facility] [address] [place] [address], * (ABNORMAL) CBC W/DIFF AUTOMATED (05/08/2024 12:02 AM EXCELSIOR PICKER) WBC 6.75 4.4 - 11.0 x10'3/uL 05/08/2024 1:43 AM [facility] RBC 4.85 4.50 - 5.90 x10'6/uL 05/08/2024 1:43 AM [facility] HGB 13.4(L) 14.0 - 17.5 G/DL 05/08/2024 1:43 AM [facility] HCT 42.6 41.5 - 50.4 % 05/08/2024 1:43 AM [facility] MCV 87.8 80.0 - 96.0 FL 05/08/2024 1:43 AM [facility] MCH 27.6 26.5 - 31.4 PG 05/08/2024 1:43 AM [facility] MCHC 31.5(L) 31.9 - 34.8 G/DL 05/08/2024 1:43 AM [facility] RDW 14.3 12.3 - 14.3 % 05/08/2024 1:43 AM [facility] PLT 277 151 - 353 x10'3/uL 05/08/2024 1:43 AM [facility] MPV 10.6 9.7 - 11.9 FL 05/08/2024 1:43 AM [facility] RBC MORPHOLOGY NORMAL 05/08/2024 1:43 AM [facility] PLT MORPH. NORMAL 05/08/2024 1:43 AM [facility] WBC MORPHOLOGY NORMAL 05/08/2024 1:43 AM [facility] LYMPHOCYTES % 25.3 15.8 - 45.0 % 05/08/2024 1:43 AM [facility] NEUTROPHILS % 60.4 42.1 - 71.9 % 05/08/2024 1:43 AM [facility] MONOCYTES % 9.5 5.7 - 12.5 % 05/08/2024 1:43 AM [facility] EOSINOPHILS 2.8 0.0 - 5.6 % 05/08/2024 1:43 AM [facility] BASOPHILS 1.0 0.0 - 1.3 % 05/08/2024 1:43 AM [facility] ABS. NEUTROPHILS 4.07 1.40 - 6.00 x10'3/uL 05/08/2024 1:43 AM [facility] IMMATURE GRANS % 1.0(H) 0.0 - 0.5 % 05/08/2024 1:43 AM [facility] ABS. LYMPHOCYTES 1.71 0.80 - 4.70 x10'3/uL 05/08/2024 1:43 AM [facility] 05/08/2024 12:0 2 AM EXCELSIOR PICKER Callum Kim MD LABORATORY Final Result Performing Organization Address City/[facility]/ZIP Co de Phone Number [facility] [address] [place] [address], [place] [phone] * LIPASE (05/08/2024 12:02 AM EXCELSIOR PICKER) LIPASE 56 16 - 77 UNITS/L 05/08/2024 1:36 AM EXCELSIOR PICKER [facility] 05/08/2024 12:0 2 AM EXCELSIOR PICKER Callum Kim MD LABORATORY Final Result Performing Organization Address [facility] Co de Phone Number [facility] [address] [place] [address], [place] [phone] from Last 3 Months Insurance [employer] Care Teams Cit[employer] Administrator Relationship Specialty Start Date End Date None, Provider, PCP - General 02/21/22 [place] [address] [place] [address] Consulting Physician GASTROENTEROLOGY 05/08/24 5
--- OUTSIDE RECORDS SUMMARY | 2024-05-29 18:05 | XMS_ITS | Encounter Summary ---
Author Organization [facility] Address [address] [place] [address]. [place], [place] [id number] [place] [id number] Care Team Providers Care Biochemical Engineer Name Role Phone None, Provider Primary Care [...] on filedocumented in this encounter Care Teams Biochemical Engineer Relationship Specialty Start Date End Date None, Provider, PCP - General 02/21/22 documented as of this encounter
--- OUTSIDE RECORDS SUMMARY | 2024-05-29 18:05 | XMS_ITS | Data Portability ---
Author Organization SURAJ Anisha TIPTON Address [address] [facility] [place] [address] Assessment No assessment recorded. Plan of Treatment Reminders Order Date Submit Date Provider Last Modified By Organization Details Last Modified Time Details Appointments None recorded. Lab lipid panel, serum 2014 015 [facility], [facility] [address], [place], [address], 5 09:21:43 hepatic function panel, serum 2014 015 [facility], [facility] [address], [place], [address], 5 09:21:43 lipid panel, serum 2015 016 [facility], [facility], [address], [place], [address], 6 10:23:23 hepatic function panel, serum 2015 016 [facility], [address], [place], [address], 6 10:23:24 HbA1c (hemoglobin A1c), blood 2016 017 [facility], [address], [place], [address], 7 06:13:51 lipid panel, serum 2016 017 [facility], [address], [place], [address], 7 06:13:51 CMP, serum or plasma 2016 017 [facility], [address], [place], [address], 7 06:13:50 HbA1c (hemoglobin A1c), blood 2016 017 [facility], [address], [address], [place], [address], 7 06:17:02 lipid panel, serum 2016 017 [facility], [address], [place], [address], 7 06:17:01 Referral None recorded. Procedures None recorded. Surgeries None recorded. Imaging None recorded. Medication Orders pravastatin 40 mg tablet 2014 015 [id number], [address] [place], [place], [id number], 7 15:03:12 trazodone 50 mg tablet 2015 016 [id number], [address] [place], [place], [id number], 7 15:04:11 Patient TargetsNo targets recorded. Patient Instructions Encounter Date Encounter Id Patient Instructions Last Modified By Organization Details Last Modified Time 02/13/2015 [id number] Declined flu vaccine eewig Not available 02/13/2015 12:46:49 04/29/2015 [id number] Declined flu vaccine eewig Not available 04/29/2015 12:40:01 11/04/2016 [id number] A healthy lifestyle: care instructions thulsema Not available 11/04/2016 16:28:48 03/22/2017 [id number] A healthy lifestyle: care instructions Not available 03/22/2017 17:37:41 prediabetes: car e instructions Not available 03/22/2017 17:37:41 Reason for Referral None Reported. Results Created Date Observation Date Name Description Value Unit Range Abnormal Flag Note LastModifiedBy Organization Detail LastModifiedTime 02/14/20 15 02/14/2015 lipid panel , serum cholesterol, total 177 mg/dL 100-19 9 Not Available [facility] ([facility]) [address] [place], [address], 02/14/2015 09:21:43 02/14/20 15 02/14/2015 lipid panel , serum triglyceride s 117 mg/dL 0-149 Not Available [facility] ([facility]) [address] [place], [address], 02/14/2015 09:21:43 02/14/20 15 02/14/2015 lipid panel , serum HDL cholesterol 50 mg/dL >39 ACCOR DING TO ATP-I II GUIDE LINES , HDL-C >59 MG/DL IS CONSI DERED A NEGAT TONG RISK FACTO R FOR CHD. Not Available [facility] ([facility]) [address] [place], [address], 02/14/2015 09:21:43 02/14/20 15 02/14/2015 lipid panel , serum VLDL cholesterol derick 23 mg/dL 5-40 Not Available [facility] ([facility]) [address] [place], [address], 02/14/2015 09:21:43 02/14/2002/14/2015 lipid panel , serum LDL cholesterol calc 104 mg/dL 0-99 above high normal Not Available [facility] ([facility]) [address] [place], [address], 02/14/2015 09:21:43 02/14/20 15 02/14/2015 lipid panel , serum comment: GUEST ASSOCIATE Not Available [facility] ([facility]) [address] [facility], [place], [address], 02/14/2015 09:21:43 02/14/20 15 02/14/2015 lipid panel , serum T. chol/HDL ratio 3.5 ratio _unit s 0.0-5. 0 T. CHOL/ HDL RATIO MEN WOMEN 1/2 AVG.R ISK 3.4 3.3 AVG.R ISK 5.0 4.4 2X AVG.R ISK 9.6 7.1 3X AVG.R ISK 23.4 11.0 Not Available [facility] ([facility]) [address] [facility], [place], [address], 02/14/2015 09:21:43 02/14/20 15 02/14/2015 hepat ic funct ion panel , serum protein, total, serum 7.3 g/dL 6.0-8. 5 Not Available [facility] ([facility]) [address] [place], [address], 02/14/2015 09:21:43 02/14/20 15 02/14/2015 hepat ic funct ion panel , serum albumin, serum 4.5 g/dL 3.5-5. 5 Not Available [facility] ([facility]) [address] [place], [address], 02/14/2015 09:21:43 02/14/20 15 02/14/2015 hepat ic funct ion panel , serum bilirubin, total 0.4 mg/dL 0.0-1. 2 Not Available [facility] ([facility]) [address] [place], [address], 02/14/2015 09:21:43 02/14/20 15 02/14/2015 hepat ic funct ion panel , serum bilirubin, direct 0.11 mg/dL 0.00-0 .40 Not Available [facility] ([facility]) [address] [place], [address], 02/14/2015 09:21:43 02/14/20 15 02/14/2015 hepat ic funct ion panel , serum alkaline phosphatase, S 48 IU/L 39-117 Not Available [facility] ([facility]) [address] [facility], [place], [address], 02/14/2015 09:21:43 02/14/20 15 02/14/2015 hepat ic funct ion panel , serum AST (SGOT) 25 IU/L 0-40 Not Available [facility] ([facility]) [address] [facility] [place], [address], 02/14/2015 09:21:43 02/14/20 15 02/14/2015 hepat ic funct ion panel , serum ALT (SGPT) 28 IU/L 0-44 Not Available [facility] ([facility]) [address] [facility] [place], [address], 02/14/2015 09:21:43 07/29/19 16 07/30/2015 lipid panel , serum cholesterol, total 185 mg/dL 100-19 9 Not Available [facility] ([facility]) [address] [facility], [place], [address], 07/30/2015 10:23:23 07/29/19 16 07/30/2015 lipid panel , serum triglyceride s 116 mg/dL 0-149 Not Available [facility] ([facility]) [address] [place], [address], 07/30/2015 10:23:23 07/29/19 16 07/30/2015 lipid panel , serum HDL cholesterol 47 mg/dL >39 ACCOR DING TO ATP-I II GUIDE LINES , HDL-C >59 MG/DL IS CONSI DERED A NEGAT TONG RISK FACTO R FOR CHD. Not Available [facility] ([facility]) [address] [facility] [place], [address], 07/30/2015 10:23:23 07/29/19 16 07/30/2015 lipid panel , serum VLDL cholesterol derick 23 mg/dL 5-40 Not Available [facility] ([facility]) [address] [place], [address], 07/30/2015 10:23:23 07/29/19 16 07/30/2015 lipid panel , serum LDL cholesterol calc 115 mg/dL 0-99 above high normal Not Available [facility] ([facility]) [address] [place], [address], 07/30/2015 10:23:23 07/29/19 16 07/30/2015 lipid panel , serum comment: GUEST ASSOCIATE Not Available [facility] ([facility]) [address] [place], [address], 07/30/2015 10:23:23 07/29/19 16 07/30/2015 lipid panel , serum T. chol/HDL ratio 3.9 ratio _unit s 0.0-5. 0 T. CHOL/ HDL RATIO MEN WOMEN 1/2 AVG.R ISK 3.4 3.3 AVG.R ISK 5.0 4.4 2X AVG.R ISK 9.6 7.1 3X AVG.R ISK 23.4 11.0 Not Available [facility] ([facility]) [address] [place], [address], 07/30/2015 10:23:23 07/29/19 16 07/30/2015 hepat ic funct ion panel , serum protein, total, serum 7.4 g/dL 6.0-8. 5 SPECI MEN RECEI ZACH HEMOL YZED. CLINI DERICK CORRE LATIO N INDIC ATED. Not Available [facility] ([facility]) [address] [place], [address], 07/30/2015 10:23:24 07/29/19 16 07/30/2015 hepat ic funct ion panel , serum albumin, serum 4.5 g/dL 3.5-5. 5 Not Available [facility] ([facility]) [address] [place], [address], 07/30/2015 10:23:24 07/29/19 16 07/30/2015 hepat ic funct ion panel , serum bilirubin, total 0.4 mg/dL 0.0-1. 2 Not Available [facility] ([facility]) [address] [facility], [place], [address], 07/30/2015 10:23:24 07/29/19 16 07/30/2015 hepat ic funct ion panel , serum bilirubin, direct 0.10 mg/dL 0.00-0 .40 Not Available [facility] ([facility]) [address] [facility], [place], [address], 07/30/2015 10:23:24 07/29/19 16 07/30/2015 hepat ic funct ion panel , serum alkaline phosphatase, S 54 IU/L 39-117 Not Available [facility] ([facility]) [address] [facility], [place], [address], 07/30/2015 10:23:24 07/29/19 16 07/30/2015 hepat ic funct ion panel , serum AST (SGOT) 30 IU/L 0-40 Not Available [facility] ([facility]) [address] [facility], [place], [address], 07/30/2015 10:23:24 07/29/19 16 07/30/2015 hepat ic funct ion panel , serum ALT (SGPT) 33 IU/L 0-44 Not Available [facility] ([facility]) [address] [facility], [place], [address], 07/30/2015 10:23:24 11/05/19 17 11/05/2016 CMP, serum or plasm a glucose, serum 96 mg/dL 65-99 SPECI MEN RECEI ZACH IN CONTA CT WITH CELLS . NO VISIB LE HEMOL YSIS PRESE NT. HOWEV ER GLUC MAY BE DECRE ASED AND K INCRE ASED. CLINI DERICK CORRE LATIO N INDIC ATED. Not Available [facility] ([facility]) [address] [facility] [place], [address], 11/05/2016 06:13:50 11/05/19 17 11/05/2016 CMP, serum or plasm a BUN 13 mg/dL 6-24 Not Available [facility] ([facility]) [address] [facility] [place], [address], 11/05/2016 06:13:50 11/05/1911/05/2016 CMP, serum or plasm a creatinine, serum 1.11 mg/dL 0.76-1 .27 Not Available [facility] ([facility]) [address] [facility] [place], [address], 11/05/2016 06:13:50 11/05/1911/05/2016 CMP, serum or plasm a eGFR if nonafricn AM 81 mL/mi n/1.7 3 >59 Not Available [facility] ([facility]) [address] [facility] [place], [address], 11/05/2016 06:13:50 11/05/19 17 11/05/2016 CMP, serum or plasm a eGFR if africn AM 94 mL/mi n/1.7 3 >59 Not Available [facility] ([facility]) [address] [facility], [place], [address], 11/05/2016 06:13:50 11/05/19 17 11/05/2016 CMP, serum or plasm a BUN/creatini ne ratio 12 9-20 Not Available [facility] ([facility]) [address] [facility] [place], [address], 11/05/2016 06:13:50 11/05/1911/05/2016 CMP, serum or plasm a sodium, serum 140 mmol/ L 134-14 4 Not Available [facility] ([facility]) [address] [facility] [place], [address], 11/05/2016 06:13:50 11/05/1911/05/2016 CMP, serum or plasm a potassium, serum 4.5 mmol/ L 3.5-5. 2 Not Available [facility] ([facility]) [address] [place], [address], 11/05/2016 06:13:50 11/05/1911/05/2016 CMP, serum or plasm a chloride, serum 98 mmol/ L 96-106 Not Available [facility] ([facility]) [address] [place], [address], 11/05/2016 06:13:50 11/05/1911/05/2016 CMP, serum or plasm a carbon dioxide, total 24 mmol/ L 18-29 Not Available [facility] ([facility]) [address] [place], [address], 11/05/2016 06:13:50 11/05/1911/05/2016 CMP, serum or plasm a calcium, serum 8.8 mg/dL 8.7-10 .2 Not Available [facility] ([facility]) [address] [place], [address], 11/05/2016 06:13:50 11/05/1911/05/2016 CMP, serum or plasm a protein, total, serum 7.3 g/dL 6.0-8. 5 Not Available [facility] ([facility]) [address] [place], [address], 11/05/2016 06:13:50 11/05/1911/05/2016 CMP, serum or plasm a albumin, serum 4.4 g/dL 3.5-5. 5 Not Available [facility] ([facility]) [address] [place], [address], 11/05/2016 06:13:50 11/05/1911/05/2016 CMP, serum or plasm a globulin, total 2.9 g/dL 1.5-4. 5 Not Available [facility] ([facility]) [address] [place], [address], 11/05/2016 06:13:50 11/05/1911/05/2016 CMP, serum or plasm a A/G ratio 1.5 1.2-2. 2 Not Available [facility] ([facility]) [address] [facility] [place], [address], 11/05/2016 06:13:50 11/05/1911/05/2016 CMP, serum or plasm a bilirubin, total <0.2 mg/dL 0.0-1. 2 Not Available [facility] ([facility]) [address] [facility] [place], [address], 11/05/2016 06:13:50 11/05/1911/05/2016 CMP, serum or plasm a alkaline phosphatase, S 53 IU/L 39-117 Not Available [facility] ([facility]) [address] [place], [address], 11/05/2016 06:13:50 11/05/1911/05/2016 CMP, serum or plasm a AST (SGOT) 23 IU/L 0-40 Not Available [facility] ([facility]) [address] [place], [address], 11/05/2016 06:13:50 11/05/1911/05/2016 CMP, serum or plasm a ALT (SGPT) 22 IU/L 0-44 Not Available [facility] ([facility]) [address] [place], [address], 11/05/2016 06:13:50 11/05/1911/05/2016 lipid panel , serum cholesterol, total 214 mg/dL 100-19 9 above high normal Not Available [facility] ([facility]) [address] [place], [address], 11/05/2016 06:13:51 11/05/1911/05/2016 lipid panel , serum triglyceride s 149 mg/dL 0-149 Not Available [facility] ([facility]) [address] [facility] [place], [address], 11/05/2016 06:13:51 11/05/19 17 11/05/2016 lipid panel , serum HDL cholesterol 39 mg/dL >39 below low normal Not Available [facility] ([facility]) [address] [facility] [place], [address], 11/05/2016 06:13:51 11/05/19 17 11/05/2016 lipid panel , serum VLDL cholesterol derick 30 mg/dL 5-40 Not Available [facility] ([facility]) [address] [facility] [place], [address], 11/05/2016 06:13:51 11/05/1911/05/2016 lipid panel , serum LDL cholesterol calc 145 mg/dL 0-99 above high normal Not Available [facility] ([facility]) [address] [place], [address], 11/05/2016 06:13:51 11/05/1911/05/2016 lipid panel , serum comment: GUEST ASSOCIATE Not Available [facility] ([facility]) [address] [place], [address], 11/05/2016 06:13:51 11/05/19 17 11/05/2016 HbA1c (hemo globi n A1c), blood hemoglobin A1C 6.0 % 4.8-5. 6 above high normal PRE-D IABET ES: 5.7 - 6.4 DIABE JESSIE: >6.4 GLYCE MARY BETH CONTR OL FOR ADULT S WITH DIABE JESSIE: <7.0 Not Available [facility] ([facility]) [address] [facility] [place], [address], 11/05/2016 06:13:51 03/22/20 17 03/23/2017 lipid panel , serum cholesterol, total 184 mg/dL 100-19 9 Not Available [facility] ([facility]) [address] [place], [address], 03/23/2017 06:17:01 03/22/20 17 03/23/2017 lipid panel , serum triglyceride s 145 mg/dL 0-149 Not Available [facility] ([facility]) [address] [facility], [place], [address], 03/23/2017 06:17:01 03/22/20 17 03/23/2017 lipid panel , serum HDL cholesterol 49 mg/dL >39 Not Available [facility] ([facility]) [address] [facility], [place], [address], 03/23/2017 06:17:01 03/22/2003/23/2017 lipid panel , serum VLDL cholesterol derick 29 mg/dL 5-40 Not Available [facility] ([facility]) [address] [facility], [place], [address], 03/23/2017 06:17:01 03/22/20 17 03/23/2017 lipid panel , serum LDL cholesterol calc 106 mg/dL 0-99 above high normal Not Available [facility] ([facility]) [address] [place], [address], 03/23/2017 06:17:01 03/22/2003/23/2017 lipid panel , serum comment: GUEST ASSOCIATE Not Available [facility] ([facility]) [address] [facility], [place], [address], 03/23/2017 06:17:01 03/22/2003/23/2017 HbA1c (hemo globi n A1c), blood hemoglobin A1C 5.7 % 4.8-5. 6 above high normal Pre-d iabet es: 5.7 - 6.4 Diabe jessie: >6.4 Glyce mary beth contr ol for adult s with diabe jessie: <7.0 Not Available [facility] ([facility]) [address] [facility], [place], [address], 03/23/2017 06:17:02 Result Notes None recorded. Problems Name Problem SNOMED Code Status Onset Date Resolution Date Notes Provider Name and Address Organization Details Recorded Time Inguinal hernia 522646949 Active rt side Viola Byrd PA-C Attn: Accounting ,[address] [facility], [place], [place], [address] [place] [address] , [facility] 5 12:47:07 Gastroesophag eal reflux disease 395305190 Active Viola Byrd PA-C Attn: Accounting ,[address] [place], [place], [address] [place] [address] , [facility] 5 13:44:48 Impacted cerumen 61481629 Active Viola Byrd PA-C Attn: Accounting ,[address] [place], [address] [place] [address] , [facility] 5 13:44:48 Otitis media 63115453 Active Viola Byrd PA-C Attn: Accounting ,[address] [place], [place], [address] [place] [address] , [facility] 5 13:44:48 Hyperlipidemi a 37252622 Active Viola Byrd PA-C Attn: Accounting ,[address] [place], [place], [address] [place] [address] , [facility] 6 15:23:21 Insomnia 126437058 Active Viola Byrd PA-C Attn: Accounting ,[address] [place], [address] [place] [address] , [facility] 6 13:11:29 Hypercholeste rolemia 97233626 Active 2016 VANDA Mcmanus NP Attn: Accounting ,[address] [place], [place], [address] [place] [address] , [facility] 7 10:46:31 Prediabetes 169372109 Active 2016 VANDA Mcmanus NP Attn: Accounting ,[address] [place], [place], [address] [place] [address] , [facility] 7 17:21:32 Problem Notes None recorded. Procedures Surgical History Date Name Laterality Status Provider Name and Address Organization Details Recorded Time 5 Cerumen Removal completed Viola Byrd PA-C Attn: Accounting,[address] [facility], [place], [place], [address], [facility] 11/14/2014 13:46:34 Imaging Results None recorded. Procedure Notes None recorded. Medical Equipment None Reported. Allergies No known drug allergies Medications Name Sig Start Date Stop Date Status Note LastModified by Organization Details LastModified Time famotidine tab 20mgfamotidi ne 04/29 completed Not Available Not Available Not Available pravastatin sodium 40 mg tabs 04/29 completed Not Available Not Available Not Available amoxicillin cap 500mgamoxici llin 04/29 completed Not Available Not Available Not Available amoxicillin 500 mg caps 04/29 completed Not [...] Details Last Updated DateTime 5 20 /min 24016.8 32700 g 97 % 97 % 175.26 cm 26.7 kg/m2 98 [degF] 75 /min 118 mm[Hg] 76 mm[Hg] [facility] 5 12:27:43 Date Recorded Body weight Oxygen saturation Oxygen saturation in Arterial blood by Pulse oximetry Body temperature Heart rate Body mass index (BMI) Body height Systolic blood pressure Diastolic blood pressure Provider Name and Address Organization Details Last Updated DateTime 5 93870.5 74229 g 99 % 99 % 97.7 [degF] 66 /min 27.1 kg/m2 175.26 cm 118 mm[Hg] 70 mm[Hg] [facility] 5 12:34:14 Date Recorded Heart rate Body weight Body temperature Body mass index (BMI) Body height Oxygen saturation Oxygen saturation in Arterial blood by Pulse oximetry Respiratory rate Systolic blood pressure Diastolic blood pressure Provider Name and Address Organization Details Last Updated DateTime 6 60 /min 14930.1 03523 g 98 [degF] 27.1 kg/m2 175.26 cm 98 % 98 % 20 /min 128 mm[Hg] 84 mm[Hg] [facility] 6 12:33:10 Date Recorded Body height Body weight Body mass index (BMI) Oxygen saturation Oxygen saturation in Arterial blood by Pulse oximetry Heart rate Body temperature Systolic blood pressure Diastolic blood pressure Provider Name and Address Organization Details Last Updated DateTime 7 175.26 cm 49974.6 6 g 26 kg/m2 97 % 97 % 66 /min 97.8 [degF] 124 mm[Hg] 84 mm[Hg] Peggy Cole CMA [facility] 7 14:38:09 Date Recorded Body height Body mass index (BMI) Body weight Body temperature Oxygen saturation Oxygen saturation in Arterial blood by Pulse oximetry Heart rate Systolic blood pressure Diastolic blood pressure Provider Name and Address Organization Details Last Updated DateTime 7 175.26 cm 25.8 kg/m2 21408.5 1 g 98.7 [degF] 97 % 97 % 76 /min 120 mm[Hg] 90 mm[Hg] Tony Aleman [facility] 7 15:10:03 Social History Question Answer Notes LastModified by Organizat ion Details LastModified Time Tobacco Smoking Status Never Smoker HIL[place], [place] - [facility] 11/14/2014 12:10:45 Do You Have An Advance Directive? No [email or web address] Information not available 11/14/2014 What Is Your Level Of Alcohol Consumption? Occasional [email or web address] Information not available 11/14/2014 What Is Your Level Of Caffeine Consumption? Moderate [email or web address] Information not available 11/14/2014 How Much Tobacco Do You Chew? None [email or web address] Information not available 11/14/2014 What Type Of Diet Are You Following? REGULAR [email or web address] Information not available 11/14/2014 Which Illicit Or Recreational Drugs Have You Used? 0 Information not available 11/14/2014 Are There Any Guns Present In Your Home? No Information not available 11/14/2014 Hard Of Hearing Or Deaf In One Or Both Ears? No [email or web address] Information not available 11/14/2014 Legally Blind In One Or Both Eyes? No [email or web address] Information no t available 11/14/2014 Live Alone Or With Others? With Others [email or web address] Information not available 11/14/2014 What Was The Date Of Your Most Recent Tobacco Screening? 03/22/2017 Information not available 12/20/2018 How Many Children Do You Have? 1 [email or web address] Information not available 11/14/2014 Do You Use Protection During Sex? Always Information not available 11/14/2014 Seat Belts Used Routinely Yes [email or web address] Information not available 11/14/2014 Are You Sexually Active? Yes Information not available 11/14/2014 Smoke Alarm In Home Yes [email or web address] Information not available 11/14/2014 Are You Passively Exposed To Smoke? No [email or web address] Information no t available 11/14/2014 Sex: Unknown Functional Status Question Answer Note LastModified by Organization D etails LastModified Time Are you able to care for yourself? Yes [email or web address] Information n ot available 11/14/2014 What is your exercise level? None [email or web address] Information not available 11/14/2014 Mental Status None recorded. Family History Relationship Description Onset Age of this Age Resolved Age Notes LastModified by Organization Details LastModified Time Mother Asthma [email or web address] Not available 0 07/29/2015 12:33:11 Mother Hypertensive disorder Not available 2015 12:33:11 Father Asthma [email or web address] Not available 0 07/29/2015 12:33:11 Father Hypertensive disorder [email or web address] Not available 2015 12:33:11 Medical History Condition Response Coronary Artery Disease N Other N Atrial Fibrillation N High Blood Pressure N Kidney or Bladder Problems N Thyroid Problems N GI Problems N Depression N COPD N Blood Clots N Skin Problems N Anemia N Heart Attack (MD) N Anxiety Disorder N Diabetes N Muscle, Joint, or Bone Problems N Seizures/Epilepsy N Acid Reflux (GERD) N Cancer N Stroke N Asthma N Allergies N High Cholesterol N Hepatitis N Liver Disease N Headaches N Osteoporosis N Heart Failure N Immunizations Vaccine Type Date Status Note Provider Nam e and Address Organization Details Recorded Time Influenza, split virus, quadrivalent, preservative 5 completed Not Available [facility] 06/15/2019 02:43:04 Past Encounters Encounter ID Performer Location Encounter Start Date Encounter Closed Date Diagnosis/Indication Diagnosis SNOMED-CT Code Diagnosis ICD10 Code [id number] Neyda (Adult Med) [address] [place] [phone] 11/14/2014 11:38:31 11/14/2014 13:47:07 Gastroesophageal reflux disease 312258987 Inguinal hernia 74109204 0 Adult heal th examination 435819748 Impacted cerumen 6479836 6 Otitis media 05037065 [id number] Breonnanatalie Faye (Adult Med) [address] [place] [phone] 0 11/18/2014 08:47:10 11/18/2014 10:52:20 [id number] Neyda (Adult Med) [address] [place] [phone] 02/13/2015 12:01:41 02/13/2015 12:47:32 Inguinal hernia 772855305 Hyperlipidemia 98498687 [id number] VIRA Davidson (Adult Med) [address] [place] [phone] 04/29/2015 12:10:36 04/29/2015 12:41:59 Hyperlipidemia 51837779 E78.5 Active or passive immunization [id number] Z23 [id number] VIRA Davidson (Adult Med) [address] [place] [phone] 07/29/2015 12:18:30 07/29/2015 12:52:16 Insomnia [id number] G47.00 Hyperlipidemia 34362833 E78.5 [id number] Peggy Cole CMA [facility] [address] [place] [address] 11/04/2016 14:18:58 11/04/2016 15:21:16 Hyperlipidemia [id number] E78.5 Diabetes m ellitus screening [id number] Z13.1 [id number] VANDA Mcmanus NP [facility] [address] [place] [address] 03/22/2017 14:59:35 03/22/2017 17:24:03 Hyperlipidemia 16974959 E78.5 Prediabetes 106947450 R7 3.03 Health Concerns Section Related Observation LastModified by Organization Detai ls LastModified Time None Recorded Concern Status LastModified by Organization Details LastModified Time None Recorded Advance Directives Directive N: Payers Encounter Date Sequence Insurance Name Policy Number Policy Maldonado Covered Member ID Maldonado Member ID Guarantor Name 02/13/2015 1 FORMERLY [facility], [facility]–1983 (MEDICAID HMO) Abelardo Quevedo [id number] Rao Quevedo 04/29/2015 1 FORMERLY [facility], [facility]–1983 (MEDICAID HMO) Abelardo Quevedo [id number] Rao uQevedo 07/29/2015 1 FORMERLY [facility], [facility]–1983 (MEDICAID HMO) Abelardo Quevedo [id number] Rao Quevedo 11/04/2016 1 FORMERLY [facility], [facility]–1983 (MEDICAID HMO) Abelardo Quevedo [id number] Rao Quevedo 03/22/2017 1 FORMERLY [facility], [facility]–1983 (MEDICAID HMO) Abelardo Quevedo [id number] Rao Quevedo Notes Date Note Type Note Provider Name and Address Organization Details Recorded Time 5 text/htm l HyperlipidemiaReported bypatient.Duration:new onset Current Therapy:currently taking: (pravastatin) Compliance:compliant; compliant with diet; exercises Complications:no cardiovascular disease Viola Byrd PA-C Attn: Accounting,[address] [facility], [place], [address], [facility] 04/29/2015 12:41:51 6 text/htm l HyperlipidemiaReported bypatient.Current [...] water Viola Byrd PA-C Attn: Accounting,[address] [facility], [place], [address], [facility] 07/29/2015 13:11:52 7 text/htm l Patient presents today for a check-up . States that he is not currently taking any medications. States the pravastatin made him have very bad dizzy spells in the morning. The dizziness has stopped since not taking the pravastatin. He reports having migraines 3x per month relived with excedrin. Peggy Cole CMA [facility], [facility] 11/04/2016 16:06:33 7 text/htm l Patient presents [...] daily VANDA Mcmanus NP Attn: Accounting,[address] [facility], [place], [address], [facility] 03/22/2017 17:23:21
--- OUTSIDE RECORDS SUMMARY | 2024-05-29 18:05 | XMS_ITS | Encounter Summary ---
Author Organization [facility] Address [address] [place] [address]. [place], [place] [address] [place] [address] Care Team Providers Care Continuing Education Instructor Name Role Phone None, Provider MD Primary Care Provider Yaya Rodriguez MD Unavailable Reason for Referral * Consultation (Routine) - New Request Specialty Diagnoses / Procedures Referred By Contsuraj t Referred To Contact GASTROENTEROLOGY Diagnoses Hematochezia Callum Kim MD [address] [place] [address] Phone: tel: [place]: [place] [address] [place] [address] Phone: tel: fax: Referral ID Status Reason Start Date Expiration Date V isits Requested Visits Authorized [id number] New Request 05/08/2024 05/08/2025 1 1 [facility] Reason for Visit * Reason Comments Blood In Stool Encounter Details Date Type Department Care Team (Late st Contact Info) Description 05/07/2024 11:58 PM [facility] - 05/08/2024 2:00 AM [facility] Emergency [facility] Emergency Room [address] [place] [address] Callum Kim MD [address] [place] [id number] Blood In Stool Discharge Disposition: Home [...] Comments Blood Pressure 160/83 05/08/2024 12:01 AM [facility] Pulse 65 05/08/2024 12:01 AM [facility] Temperature 36.6 ??C (97.9 ??F) 05/08/2024 12:[address] Respiratory Rate 18 05/08/2024 12:01 AM [facility] Oxygen Saturation 98% 05/08/2024 12:01 AM [facility] Inhaled Oxygen Concentration - - Weight 74.4 kg (164 lb) 05/08/2024 12:01 AM [facility] Height 175.3 cm (5' 9 ) 05/08/2024 12:01 AM [facility] Body Mass Index 24.22 05/08/2024 12:01 AM [facility] documented in this encounter Discharge Instructions * Discharge Instructions* Callum Kim MD - 05/08/2024 1:49 AM [facility] You were seen in the emergency department [...] to give you a referral for a c application developer to have a colonoscopy done that will [...] chest pain, shortness of breath, lightheadedness, dizziness. [facility] * Attachments The following attachments cannot be sent through Care Everywhere. * Bloody Stools, Adult ED (Tajik) * Hemorrhoids Discharge Instructions (Tajik) documented in this encounter ED Notes * [...] plan to have him follow-up with a c application developer in the future to undergo colonoscopy to further elucidate the nature of his bleeding. Patient's hemoglobin is 13.4. He has no leukocytosis. His CMP is unremarkable. His vital signs remained stable during his stay in the emergency department today. Ispoke with patient about the nature of his condition and we agreed to have him see a c application developer to further elucidate the nature of his bleeding. He was given return precautions as outlined inhis discharge paperwork. Clinical Impression Hematochezia (Primary) Hemorrhoids Disposition: Discharge Callum Kim MD 05/08/24 0151 [facility] * Daryl Bass RN - 05/08/2024 12:00 AM CST Pt ambulatory to ED with c/o blood in stool x3 today. [facility] documented in this encounter Plan of Treatment Scheduled Referrals Name Type Priority Associated Diagnoses Orde r Schedule Ambulatory referral to Gastroenterology Referral Routine Hematochezia Ordered: 05/08/2024 documented as of this encounter Procedures Procedure Name Priority Date/Time Associated Diagnosis Comments COMPREHENSIVE METABOLIC PANEL STAT 05/08/2024 12:02 AM [facility] CBC W/DIFF AUTOMATED STAT 05/08/2024 12:02 AM [facility] LIPASE STAT 05/08/2024 12:02 AM [facility] documented in this encounter Results * LIPASE (05/08/2024 12:02 AM [facility]) LIPASE 56 16 - 77 UNITS/L 05/08/2024 1:36 AM [facility] 05/08/2024 12:0 2 AM [facility] us Callum Kim MD LABORATORY Final Result [facility] [address] [place] [address], [place] [phone] * (ABNORMAL) COMPREHENSIVE METABOLIC PANEL (05/08/2024 12:02 AM [facility]) Pathologist [facility] GLUCOSE 89 70 - 99 MG/DL 05/08/2024 1:36 AM [facility] BUN 20(H) 7 - 18 MG/DL 05/08/2024 1:36 AM [facility] CREATININE S/P/B 1.18 0.7 - 1.3 MG/DL 05/08/2024 1:36 AM [facility] SODIUM S/P/B 141 136 - 145 MMOL/L 05/08/2024 1:36 AM [facility] POTASSIUM S/P/B 3.7 3.5 - 5.1 MMOL/L 05/08/2024 1:36 AM [facility] CHLORIDE S/P/B 103 100 - 108 MMOL/L 05/08/2024 1:36 AM [facility] CO2 29.4 21 - 32 MMOL/L 05/08/2024 1:36 AM [facility] CALCIUM S/P/B 9.2 8.5 - 10.1 MG/DL 05/08/2024 1:36 AM [facility] BILIRUBIN TOTAL S/P/B 0.5 0.2 - 1.2 MG/DL 05/08/2024 1:36 AM [facility] TOTAL PROTEIN S/P/B 8.0 6.4 - 8.2 G/DL 05/08/2024 1:36 AM [facility] ALBUMIN S/P/B 3.6 3.4 - 5.0 G/DL 05/08/2024 1:36 AM [facility] AST 19 15 - 37 U/L 05/08/2024 1:36 AM [facility] ALT 26 16 - 60 U/L 05/08/2024 1:36 AM [facility] ALKALINE PHOSPHATASE S/P/B 66 50 - 136 U/L 05/08/2024 1:36 AM [facility] ANION GAP 8.6 5 - 15 MMOL/L 05/08/2024 1:36 AM [facility] BUN CREATININE RATIO 16.9 6 - 26 05/08/2024 1:36 AM [facility] A/G RATIO 0.8(L) 1.0 - 2.0 RATIO 05/08/2024 1:36 AM [facility] GFR ESTIMATE 75(L) >90 ML/MIN/1.7 3 M2 05/08/2024 1:36 AM [facility] Comment: NOTE: eGFR is not calculated for patients <18 years of age. This is an estimated GFR calculation using the new CKD EPI creatinine equation without race and so does not require a correction factor for race. This estimated GFR should not be used for calculating drug doses. 05/08/2024 12:0 2 AM [facility] us Callum Kim MD LABORATORY Final Result [facility] [address] [place] [id number], [place] [phone] * (ABNORMAL) CBC W/DIFF AUTOMATED (05/08/2024 12:02 AM [facility]) [facility] Signature WBC 6.75 4.4 - 11.0 x10'3/uL 05/08/2024 1:43 AM [facility] RBC 4.85 4.50 - 5.90 x10'6/uL 05/08/2024 1:43 AM [facility] HGB 13.4(L) 14.0 - 17.5 G/DL 05/08/2024 1:43 AM [facility] HCT 42.6 41.5 - 50.4 % 05/08/2024 1:43 AM [facility] MCV 87.8 80.0 - 96.0 FL 05/08/2024 1:43 AM [facility] MCH 27.6 26.5 - 31.4 PG 05/08/2024 1:43 AM [facility] MCHC 31.5(L) 31.9 - 34.8 G/DL 05/08/2024 1:43 AM [facility] RDW 14.3 12.3 - 14.3 % 05/08/2024 1:43 AM [facility] PLT 277 151 - 353 x10'3/uL 05/08/2024 1:43 AM [facility] MPV 10.6 9.7 - 11.9 FL 05/08/2024 1:43 AM [facility] RBC MORPHOLOGY NORMAL 05/08/2024 1:43 AM [facility] PLT MORPH. NORMAL 05/08/2024 1:43 AM [facility] WBC MORPHOLOGY NORMAL 05/08/2024 1:43 AM [facility] LYMPHOCYTES % 25.3 15.8 - 45.0 % 05/08/2024 1:43 AM [facility] NEUTROPHILS % 60.4 42.1 - 71.9 % 05/08/2024 1:43 AM [facility] MONOCYTES % 9.5 5.7 - 12.5 % 05/08/2024 1:43 AM [facility] EOSINOPHILS 2.8 0.0 - 5.6 % 05/08/2024 1:43 AM [facility] BASOPHILS 1.0 0.0 - 1.3 % 05/08/2024 1:43 AM [facility] ABS. NEUTROPHILS 4.07 1.40 - 6.00 x10'3/uL 05/08/2024 1:43 AM [facility] IMMATURE GRANS % 1.0(H) 0.0 - 0.5 % 05/08/2024 1:43 AM [facility] ABS. LYMPHOCYTES 1.71 0.80 - 4.70 x10'3/uL 05/08/2024 1:43 AM [facility] 05/08/2024 12:0 2 AM [facility] us Callum Kim MD LABORATORY Final Result [facility] [address] [place] [address], documented in this encounter Visit Diagnoses Diagnosis Hematochezia- Primary Blood in stool Hemorrhoids Unspecified hemorrhoids without mention of complication documented in this encounter Care Teams Continuing Education Instructor Relationship Specialty Start Date End Date None, Provider, PCP - General 02/21/22 [place] [address] [place], [place] [id number] Consulting Physician GASTROENTEROLOGY 05/08/24 5 documented as of this encounter
--- OUTSIDE RECORDS SUMMARY | 2024-05-29 18:05 | XMS_ITS | Encounter Summary ---
Author Organization [facility] Address [address] [place] [address]. [place] [address] [place] [address] Care Team Providers Care Program Manufacturing Leader Name Role Phone None, Provider MD Primary Care Provider Unavaila ble Reason for Visit * Reason Comments Rib Pain Encounter Details Date Type Department Care Team (Late st Contact Info) Description 02/21/2022 2:15 PM CDT - 02/21/2022 3:20 PM CDT Emergency [facility] Emergency Room [id number] [place] [address] Ann Jovel MD [address] [address] Rib Pain Discharge Disposition: Home or Self [...] Care Everywhere. * Bruised Rib Discharge Instructions (Djiboutian) documented in this encounter Medications at Time [...] XR CHEST PA+LAT Final Result by User, [id number] (02/21 1159) IMAGING STUDIES: XR CHEST PA+LAT DATE: 02/21/2022 [...] 20 tablet, Refills: 0 Class: Eprescribe Pharmacy: [id number] [place] [address] (Ph #: [phone]) Disposition: Discharge Follow-Up: Tiffani Whyte, FARRU[place] [address] [facility] [address]. [place] [address] In 3 days Ann Jovel MD 02/21/2022 [...] intact. Ordered By: ANN JOVEL Interpreted By: Grge Shen, 02/21/2022 2:45 PM Narrative 02/21/2022 2:46 [...] Primary documented in this encounter Care Teams Program Manufacturing Leader Relationship Specialty Start Date End Date None, Provider, PCP - General 02/21/22 documented as of this encounter
--- OUTSIDE RECORDS SUMMARY | 2024-05-29 18:05 | XMS_ITS | Encounter Summary ---
Author Organization [facility] Address [address] [place] [address]. [place], [place] [id number] [place] [address] Care Team Providers Care Video System Repairer Name Role Phone None, Provider Primary Care [...] on filedocumented in this encounter Care Teams Video System Repairer Relationship Specialty Start Date End Date None, Provider, PCP - General 02/21/22 documented as of this encounter
== END 2024-05-24 16:25 | disposition home or self-care (01) | DRG 813 ==
LOC: ANHED 20:30 → ANH3MEDSUR 20:55
PROVIDERS: Physician Assistant; Admitting Provider Internal Medicine; Emergency Provider Emergency Medicine; Visit Provider Nurse Practitioner Adult Health
DX: M96.840 Postprocedural hematoma of a musculoskeletal structure following a musculoskeletal system procedure (principal); M79.81 Nontraumatic hematoma of soft tissue; D62 Acute posthemorrhagic anemia; Z96.642 Presence of left artificial hip joint
CPT/HCPCS: 36415; 36430; 72191; 73700; 80048; 80053; 83735; 85014; 85018; 85025; 85027; 86850; 86900; 86901; 86923; 93971; 96374; 96375; 97161; 97165; 99285; A9270; G0378; G0379; J1171; J2270; J2405; J7050; P9016

== ENCOUNTER 2024-05-27 14:32 | Outpatient (CLI) | payer OTHER, SELFPAY ==
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
== END 2024-05-27 14:33 | disposition home or self-care (01) ==
PROVIDERS: Visit Provider Orthopaedic Surgery
DX: S72.002A Fracture of unspecified part of neck of left femur, initial encounter for closed fracture (principal); X58.XXXA Exposure to other specified factors, initial encounter; Z96.642 Presence of left artificial hip joint
CPT/HCPCS: 73502